=== PATIENT | male | born 1935 | race Caucasian/White ===

== ENCOUNTER 2023-07-26 19:14 | Inpatient (IN) | payer OTHER, SELFPAY ==
[2023-07-26 19:16] VITALS: BP 144/88; PULSE 101; RESP 20; O2SAT 93; BMI 40.6
--- NOTE | 2023-07-26 19:22 | ECG_ITS ---
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 Measurements Intervals [place] Rate: 106 P: -7 AK: 170 QRS: 18 QRSD: 90 T: 47 QT: 343 QTc: 456 Interpretive Statements SINUS TACHYCARDIA MINIMAL ST DEPRESSION [0.025+ mV ST DEPRESSION] ABNORMAL RHYTHM ECG No previous ECG available for comparison Electronically Signed On 07-27-2023 18:34:17 RECORDS MANAGEMENT TECHNICIAN by Gianni Hart M.D. [id number]
--- NOTE | 2023-07-26 19:24 | XRR_ITS ---
PROCEDURE INFORMATION: Exam: XR Chest Exam date and time: 07/26/2023 7:34 PM Age: 88 years old Clinical indication: Shortness of breath; Patient HX: SOB; Fall; AMS TECHNIQUE: Imaging protocol: Radiologic exam of the chest. Views: 1 view. COMPARISON: No relevant prior studies available. FINDINGS: Lungs: Lung volumes are somewhat decreased which may be due to body habitus. No infiltrates or overt CHF. Pleural spaces: Unremarkable. No pleural effusion. No pneumothorax. Heart/Mediastinum: Heart appears mildly enlarged, accentuated by decreased lung volumes. Bones/joints: Unremarkable for age. No acute abnormalities. XR/XR chest 1V portable [id number] IMPRESSION: Mild cardiomegaly, decreased lung volumes, otherwise negative chest.
--- NOTE | 2023-07-26 19:24 | CTR_ITS ---
PROCEDURE INFORMATION: Exam: CT Head Without Contrast Exam date and time: 07/26/2023 7:32 PM Age: 88 years old Clinical indication: Stroke-like symptoms; Altered mental status/memory loss; Additional info: Symptoms of acute stroke TECHNIQUE: Imaging protocol: Computed tomography of the head without contrast. Radiation optimization: All CT scans at this facility use at least one of these dose optimization techniques: automated exposure control; mA and/or kV adjustment per patient size (includes targeted exams where dose is matched to clinical indication); or iterative reconstruction. Other technique: STROKE PROTOCOL was implemented. REPORTING DATA: Count of CT and Cardiac NM exams in prior 12 months: This patient has received 0 known CTs and 0 known cardiac nuclear medicine studies in the 12 months prior to the current study. COMPARISON: No relevant prior studies available. RADIATION DOSE METRICS: Total DLP (mGy-cm): 1102.46 FINDINGS: Brain: There is no evidence of intracranial hemorrhage. There are no areas of mass effect, edema or midline shift. There are diffuse indistinct areas of decreased attenuation involving the periventricular white matter likely secondary to chronic white matter microvascular changes. Small hypodensity left basal ganglia likely representing old lacunar infarct. 1 cm rim shaped calcification posterior aspect right temporal lobe adjacent to the petrous portion right temporal bone of uncertain etiology but likely longstanding. There is age-related cerebral volume loss responsible for prominence of the cortical sulci. Cerebral ventricles: There is mild proportionate ventricular dilatation believed secondary to age related cerebral volume loss. Paranasal sinuses: Visualized sinuses are unremarkable. No fluid levels. Mastoid air cells: Visualized mastoid air cells are well aerated. Bones/joints: Unremarkable. No acute fracture. Soft tissues: Unremarkable. CT/CT head thrombolytic [id number] IMPRESSION: No acute intracranial abnormalities. 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 ASSESSMENT: ASPECTS ([place] Stroke Program Early CT Score) is 10.
--- NOTE | 2023-07-26 19:33 | ED_ITS ---
HPI - Neuro Symptoms/Deficit 2 General: Chief Complaint: Neuro Symptoms/Deficit Stated Complaint: fall Time Seen by Provider: 07/26/23 19:24 History of Present Illness: 88-year-old male presents to the emergen cy department via EMS personnel after having a syncopal episode at home. He states that he has been having nausea and vomiting for the previous 3 days. He states that he has been exposed to his entire family who has very similar illnesses. He became very weak this evening falling and losing his balance and hitting his head on the side of the nightstand in his bedroom. His who is accompanying him states he has been increasingly weak over the previous 3 days. Patient states he did have a prostate biopsy yesterday and does have blood around the tip of his penis. He denies neck or back pain. He does appear to be slightly lethargic and weak. He denies shortness of breath or chest pain. He denies numbness or tingling to the extremities. Associated symptoms: Reports malaise, nausea and vomiting Review of Systems 2 General: Reports: 10 or more systems reviewed and unremarkable except in HPI and below Const: Reports: fatigue and malaise GI: Reports: nausea, vomiting and diarrhea Musc: Reports: muscle weakness PFS ED 2 PFSH: Medical History (Updated 08/08/23 @ 00:00 by DELILAH Herrera) HTN (hypertension) Surgical History History of cholecystectomy Social History Smoking and tobacco/nicotine status: never used tobacco/nicotine Alcohol intake: never Substance/Drug Use: never Physical Exam 2 Narrative: EXAM NARRATIVE: Constitutional: the patient appears well nourished and with normal development. Vital signs reviewed as documented. HENMT: Normocephalic, atraumatic. Extermal ears with normal appearance without drainage. Nose without drainage, normal appearance. Mucus membranes moist. Neck is supple, No jugular venous distension, trachea is midline, no appreciable carotid bruits. No lymphadenopathy. No meningeal signs. Flexion, extension and lateral rotation is without pain. Eyes: Pupils are equal, round, reactive to light and accommodation. No scleral icterus. Extra-ocular movement are intact. Thorax is symmetrical and with equal rise and fall with respirations. Resp: Lungs are clear to auscultation. No wheezes, rales, crackles or ronchi at present. Cardio: Regular rate and rhythm. Positive S1, S2. No appreciable murmurs, rubs or gallops. GI: Abdominal exam reveals normal bowel sounds to all quadrants. No organomegaly. No obvious palpable masses noted. No hepatomegally appreciated. Soft, nontender to palpation. Extremity: Extremities are non-edematous and both femoral and pedal pulses are 2+ and equal bilaterally. Moves all extremities well, sensation in all extremities. Neuro: Alert and oriented x4, person, place, time and situation. Cranial nerves II through XII are grossly intact, there is no focal neurological deficits that I can appreciate at present. Motor strength in the upper and lower extremities are equal and bilateral 5/5. Psych: Cooperative, calm, normal thought process, appropriate judgment. Skin: No lesions, rashes. No gross abnormalities noted. Back: Symmetrical, no obvious deformity, No CVA tenderness Course 2 Vital Signs: Vital signs: Vital Signs Temperature 98.0 F 08/07/23 15:02 Pulse Rate 74 08/07/23 15:02 Respiratory Rate 19 H 08/07/23 15:02 Blood Pressure 147/62 08/07/23 15:02 Pulse Oximetry 97 08/07/23 08:10 Oxygen Delivery Me thod Room Air 08/07/23 08:10 MDM - Neuro Symptoms/Deficit Medical Decision Making Physical exam completed and documented, I will obtain a CT scan of his head and given his change in mental status we have called a stroke alert for evaluation. Will obtain a CBC, CMP, cardiac enzymes twelve-lead EKG blood cultures, chest x- ray urinalysis and a neurology consult. I will provide him IV fluid rehydration for his acute renal insufficiency. Medical Records I reviewed the patient's medical records. Lab Data I reviewed the patient's lab results. 08/07/23 04:10 08/07/23 04:10 Radiology Impressions Chest X-Ray 07/26/23 19:24 IMPRESSION: Mild cardiomegaly, decreased lung volumes, otherwise negative chest. Chest/Abdomen/Pelvis CT 07/27/23 00:47 IMPRESSION: IMPRESSION: Antoine catheter within decompressed urinary bladder. There is mild surrounding inflammatory change. Cystitis not excluded Femur CT 08/04/23 10:13 IMPRESSION: Edematous changes of medial muscle group and generalized fat planes of the left thigh most consistent with cellulitis in absence of traumatic history. No discrete fluid collection or mass. Clinical correlation recommended. Abdomen/Pelvis CT 08/04/23 10:46 IMPRESSION: 1. No acute abdominopelvic pathology. Interval resolution of mild perivesical fat infiltration seen on prior CT. Antoine catheter remains in place . 2. Stable basilar pulmonary nodules and right lower lung zone perifissural abnormality compared with recent chest CT. Given the largest lesion measuring up to 1.6 cm, three-month follow-up recommended according to Fleischner criteria. 3. Minor findings described above. COMMENTS: Consistent with the [place] [employer]'s Incidental Findings Committee white paper (J Am Hector Radiol 2018): Any incidental renal lesion less than 1 cm or classified as too small to characterize, or any incidental cystic renal lesion characterized as simple-appearing, is likely benign. No follow-up imaging is recommended for these lesions per consensus recommendations based on imaging criteria. Head CT 08/04/23 14:40 IMPRESSION: No acute pathology or significant interval change. Venous Duplex 08/05/23 15:20 IMPRESSION: 1. No evidence for deep venous thrombosis in the right or left lower extremities. 2. Mild subcutaneous edema in the right and left calves. Laboratory Results WBC 8.38 10^3/uL (3.29-11.43) 07/26/23 20:42 RBC 5.24 10^6/uL (3.85-5.65) 07/26/23 20:42 Hgb 15.70 g/dL (11.27-16.99) 07/26/23 20:42 Hct 47.2 % (37-53) 07/26/23 20:42 MCV 90.1 fl (82-101) 07/26/23 20:42 MCH 30.0 pg (27-33) 07/26/23 20:42 MCHC 33.3 g/dL (30-55) 07/26/23 20:42 RDW 13.3 % (12.1-15.1) 07/26/23 20:42 Plt Count 178 10^3/cmm (157-399) 07/26/23 20:42 MPV 9.6 fL (7.4-10.4) 07/26/23 20:42 Neut % (Auto) 93.0 % 07/26/23 20:42 Lymph % (Auto) 3.9 % 07/26/23 20:42 [place] % (Auto) 0.8 % 07/26/23 20:42 Eos % (Auto) 0.1 % 07/26/23 20:42 Baso % (Auto) 0.2 % 07/26/23 20:42 Neut # (Auto) 7.78 10^3/uL (1.8-7.7) H 07/26/23 20:42 Lymph # (Auto) 0.3 10^3/uL (0.8-4.8) L 07/26/23 20:42 [place] # (Auto) 0.1 10^3/uL (0.2-0.9) L 07/26/23 20:42 Eos # (Auto) 0.0 10^3/uL (0.0-0.8) 07/26/23 20:42 Baso # (Auto) 0.0 10^3/uL (0.0-0.1) 07/26/23 20:42 Nucleated RBC % (auto) 0 % 07/26/23 20:42 Nucleated RBCs # 0.0 /100WBC 07/26/23 20:42 PT 15.30 SECONDS (12.1-14.9) H 07/26/23 20:42 INR 1.17 (0.8-1.2) 07/26/23 20:42 APTT 25.2 SECONDS (23.9-36.7) 07/26/23 20:42 D-Dimer 18.51 ug/mLFEU (0-0.59) H 07/27/23 00:00 Sodium 136 mmol/L (136-145) 07/26/23 20:42 Potassium 3.7 mmol/L (3.5-5.1) 07/26/23 20:42 Chloride 100 mmol/L (98-107) 07/26/23 20:42 Carbon Dioxide 22 mmol/L (22-29) 07/26/23 20:42 Anion Gap 17.7 (5-19) 07/26/23 20:42 BUN 29 mg/dL (8-23) H 07/26/23 20:42 Creatinine 1.6 mg/dL (0.7-1.2) H 07/26/23 20:42 GFR Calculation Not Reportable 07/26/23 20:42 Glucose 233 mg/dL (65-115) H 07/26/23 20:42 Calculated Osmolality 295 mOsm/kg (285-295) 07/26/23 20:42 Lactic Acid 3.5 mmol/L (0.5-2.2) H 07/27/23 00:00 Calcium 9.2 mg/dL (8.5-10.5) 07/26/23 20:42 Total Bilirubin 1.1 mg/dL (0.15-1.2) 07/26/23 20:42 AST 33 U/L (0-40) 07/26/23 20:42 ALT 23 U/L (0-41) 07/26/23 20:42 Alkaline Phosphatase 122 U/L (40-130) 07/26/23 20:42 Total Protein 6.6 g/dL (6.6-8.7) 07/26/23 20:42 Albumin 3.7 g/dL (3.5-5.2) 07/26/23 20:42 Globulin 2.9 g/dL (1.3-4.6) 07/26/23 20:42 Procalcitonin 66.13 ng/mL (0-0.5) H 07/27/23 00:00 All radiology interpretation(s) finalized by discharge EKG Data EKG 1: Interpretation: Twelve-lead EKG obtained at 1922 and reviewed at 1923 demonstrates sinus tachycardia with a ventricular rate of 106 bpm, IN interval of 170 QRS duration 90 QT 343 and a QTc of [address] elevation or depression to demonstrate acute ischemia or infarction at present. Discharge Plan Discharge Patient Disposition: Placed in Observation Admit Provider: Maria L Lowry Clinical Impression: Acute kidney insufficiency, Viral illness, Syncope and collapse, Dehydration Discharge Diet: Advance as tolerated and Cardiac Discharge Activity: Resume usual activity Coding Level of Care Code ED [employer] Sales Specialist for Chg Steven
[2023-07-26 21:00] LABS: Basophils % 0.2 %; Eosinophils % 0.1 %; Hematocrit 47.2 % (37-53); Lymphocytes # 0.3 10^3/uL (0.8-4.8); Lymphocytes % 3.9 %; Mean Corpuscular HGB Conc 33.3 g/dL (30-55); Mean Corpuscular Volume 90.1 fl (82-101); Mean Platelet Volume 9.6 fL (7.4-10.4); Monocytes # 0.1 10^3/uL (0.2-0.9); Monocytes % 0.8 %; Neutrophils # 7.78 10^3/uL (1.8-7.7); Nucleated Red Blood Cells % 0 %; Platelet Count 178 10^3/cmm (157-399); Red Blood Count 5.24 10^6/uL (3.85-5.65); Red Cell Distribution Width 13.3 % (12.1-15.1); White Blood Count 8.38 10^3/uL (3.29-11.43)
[2023-07-26 21:02] LABS: INR 1.17 (0.8-1.2)
[2023-07-26 21:03] LABS: Partial Thromboplastin Time 25.2 SECONDS (23.9-36.7)
[2023-07-26 21:07] LABS: Alanine Aminotransferase 23 U/L (0-41); Albumin Level 3.7 g/dL (3.5-5.2); Alkaline Phosphatase 122 U/L (40-130); Anion Gap 17.7 (5-19); Aspartate Amino Transferase 33 U/L (0-40); Blood Urea Nitrogen 29 mg/dL (8-23); Calcium 9.2 mg/dL (8.5-10.5); Carbon Dioxide 22 mmol/L (22-29); Chloride 100 mmol/L (98-107); Globulin 2.9 g/dL (1.3-4.6); Glucose 233 mg/dL (65-115); Osmolality Calculated 295 mOsm/kg (285-295); Potassium 3.7 mmol/L (3.5-5.1); Sodium 136 mmol/L (136-145); Total Bilirubin 1.1 mg/dL (0.15-1.2); Total Protein 6.6 g/dL (6.6-8.7)
[2023-07-26] MEDS: sodium chloride 0.9% 1,000 ML 999 ML IV ×2 (21:24→22:24)
[2023-07-26 21:53] VITALS: BP 117/65; PULSE 100; RESP 16; TEMP 38.1; O2SAT 90
[2023-07-26] MEDS: ondansetron 2 mg/ML SDV 2 mL 4 MG IVP (23:07)
--- NOTE | 2023-07-26 23:56 | P.HP_ITS ---
Providers/Chief Complaint 2 Primary Care Provider: Any Hill MD Chief Complaint: fall History of Present Illness Home Sweeney is a 88 year old male with history of BPH, PSA was on 9, had prostate biopsy done 07/25 at [facility], presented today after syncopal event. As per the patient started experiencing loose stools after 5 PM yesterday, it made him very lethargic and dizzy, patient fell in his room and hit his head on the nightstand. He was very fatigued and lethargic. He did not complain of any shortness of breath or chest pain. He was given Reglan and Zofran in the ER, workup is showing creatinine 1.6, ER physician plan to discharge him home but family refused On my evaluation patient is fatigued and lethargic complaining of nausea vomiting I gave him Reglan, Requested D-dimer which came back extremely high at 18.5 He does have lower extremity edema As per the family patient is physically very active and sharp no history of dementia, suffered from COVID-19 earlier this year Takes lisinopril and amlodipine was recently discontinued No significant past medical history No previous history of coronary disease or CHF Review of Systems 2 General: Reports: ROS unobtainable due to medical condition Medications/Allergies Home Medications Medication Instructions Recorded Confirmed Last Taken Type budesonide-formoterol HFA 160 2 puff inhalation BID 12/02/19 12/02/19 Unknown History mcg-4.5 mcg/actuation aerosol inhaler (Symbicort) cephalexin 500 mg capsule 500 mg PO TID 7 days #21 caps 12/02/19 12/02/19 Unknown Rx ondansetron HCl 4 mg tablet 4 mg PO Q12H 5 days #10 tabs 07/26/23 Unknown Rx Allergies Allergy/AdvReac Type Severity Reaction Status Date / Time ciprofloxacin [From Cipro] Allergy RASH Verified 12/02/19 13:32 PFSH Acute 2 PFSH: Medical History HTN (hypertension) Surgical History History of cholecystectomy Social History Smoking and tobacco/nicotine status: never used tobacco/nicotine Alcohol intake: never Substance/Drug Use: never Vitals/I&O/Wt Last Vital Signs Temp 100.6 F H 07/26/23 21:53 Pulse 100 07/26/23 21:53 Resp 16 07/26/23 21:53 BP 117/65 07/26/23 21:53 Pulse Ox 90 07/26/23 21:53 07/26/23 07/26/23 07/27/23 14:59 22:59 06:59 Intake Total 1000 / 1000 Balance 1000 / 1000 Weight last 48 hrs Weight 136.078 kg Physical Exam 2 Narrative: Patient is very lethargic Sitting in a chair Hard of hearing Nonfocal neuroexam lower extremity swelling 1+ S1, S2, hemodynamic stable Low-grade fever Abdomen distended nontender Family at the bedside S1, S2 Patient is currently on room air Data 07/26/23 20:42 07/26/23 20:42 A&P Assessment and plan (1) Acute kidney insufficiency: (2) Dehydration: (3) Viral illness: (4) Syncope and collapse: (5) D-dimer, elevated: Plan Syncope and collapse Will request echo VQ scan in the morning Will request venous Doppler I will cannot do CTA chest to rule out PE because of kidney function creatinine 1.6 Monitor on telemetry Recurrent nausea vomiting Will request CT abdomen pelvis without contrast Patient started having diarrhea around 5 PM yesterday He has low-grade fever Monitor for any signs of sepsis There is no leukocytosis I will request lactic acid Patient received 2 L of fluids in the ER Recent prostate biopsy, my concern is related to UTI will request UA Antoine catheter will be placed, as per the family they were some blood clots noted as well Patient has PSA level 9 urologist at [facility] Lower extremity swelling Rule out CHF Will request echo Maintenance fluid overnight Abnormal D-dimer Not sure if this is due to underlying malignancy related to prostate versus thromboembolic phenomenon MARY CARMEN, do not have previous labs to compare his kidney function This could be related to recent episodes of diarrhea and vomiting However clinically patient has lower extremity swelling Full code [place] diet DVT prophylaxis added Attestations 2 Medical Necessity Statement*: Anticipating more than 2 midnights Diagnoses Acute kidney insufficiency N28.9 Dehydration E86.0 Viral illness B34.9 Syncope and collapse R55 D-dimer, elevated R79.89
[2023-07-27] VITALS (14 sets, daily range): BP systolic 92–123; BP diastolic 54–72; PULSE 75–95; RESP 16–26; TEMP 36.6–38.1; O2SAT 92–96
[2023-07-27 00:29] LABS: D Dimer 18.51 ug/mLFEU (0-0.59)
--- NOTE | 2023-07-27 00:47 | USCV_ITS ---
Home Sweeney Age: 88 Gender: M : 1935 Exam Date: 07/27/2023 10:41 Ordering Phys: Maria L Lowry MD Technologist: Rodger Mcpherson [place] [facility] [place]: syncope BP: 108 / 66 HR: 79 Rhythm: Sinus Technical Quality: Adequate MEASUREMENTS (Male / Female) Normal Values 2D ECHO LVOT Diameter 2.0 cm LV Ejection Fraction MOD 2C 72.5 % LV Ejection Fraction 2C AL 73.3 % LA Diameter 3.5 cm LA Width 3.2 cm LA Height 3.6 cm RA Width 3.0 cm RA Height 3.5 cm Aorta at Sinotubular Diameter 2.7 cm IVC Diameter 1.9 cm M-MODE Aortic Annulus Diameter 2.7 cm LA Ao Ratio MM 1.4 MV E Point Septal Separation 0.5 cm DOPPLER AV Peak Velocity 129.7 cm/s LVOT Peak Velocity 105.0 cm/s AV Area Cont Eq vti 3.1 cm squared AV Area Cont Eq pk 2.7 cm squared MV Peak Velocity 120.0 cm/s MV Area PHT 3.6 cm squared Mitral E to A Ratio 0.8 MV E' Velocity 44.0 cm/s Mitral E to MV E' Ratio 11.5 Mitral E to LV E' Lateral Ratio 11.7 Mitral E to LV E' Septal Ratio 11.4 TR Peak Velocity 198.6 cm/s TR Peak Gradient 15.8 mmHg TR Mean Velocity 159.8 cm/s TR Mean Gradient 11.7 mmHg TR Velocity Time Integral 39.0 cm Right Atrial Pressure 3.0 mmHg Pulmonary Artery Systolic Pressu 18.8 mmHg PV Peak Velocity 70.3 cm/s RV Acceleration Time 0.1 s RV Ejection Time 0.3 s RV AcT/ET 0.5 FINDINGS Left Ventricle Normal left ventricular size and systolic function, EF 64 %. No regional wall motion abnormalities. Mild left ventricular hypertrophy. Grade I/IV diastolic dysfunction (abnormal relaxation filling pattern), normal to mildly elevated filling pressures. Right Ventricle The right ventricle is normal in size and function. Right Atrium The right atrium is normal in size. Left Atrium The left atrium is normal in size. Mitral Valve No gross abnormalities noted Aortic Valve Thickened aortic valve Tricuspid Valve No gross abnormalities noted Pulmonic Valve Pulmonic valve not well visualized. Pericardium Normal pericardium without effusion. Aorta Normal ascending aorta dimension. IVC Normal inferior vena cava. CONCLUSIONS Normal left ventricular size and systolic function, EF 64 %. No regional wall motion abnormalities. Mild left ventricular hypertrophy. Grade I/IV diastolic dysfunction (abnormal relaxation filling pattern), normal to mildly elevated filling pressures. Thickened aortic valve Normal cardiac chamber sizes There is no pericardial effusion. No similar previous studies are available for comparison Dr Gianni Hart MD FACC (Electronically Signed) Final Date: 27 July 2023 15:34 S
--- NOTE | 2023-07-27 00:47 | USR_ITS ---
PROCEDURE INFORMATION: Exam: US Duplex Lower Extremity Veins, Bilateral Exam date and time: 07/27/2023 10:23 AM Age: 88 years old Clinical indication: Screening exam; Additional info: Swelling TECHNIQUE: Imaging protocol: Real-time duplex ultrasound of the bilateral extremities with 2-D ruth scale, color Doppler flow and spectral waveform analysis including responses to compression and other maneuvers (when performed) with image documentation. Complete exam focused on the lower extremity veins. COMPARISON: [place] [id number] 07/27/2023 1:40 AM FINDINGS: Right deep veins: Unremarkable. The common femoral, femoral, proximal profunda femoral and popliteal veins are patent without thrombus. Normal Doppler waveforms. Normal compressibility and/or augmentation response. Left deep veins: Unremarkable. The common femoral, femoral, proximal profunda femoral and popliteal veins are patent without thrombus. Normal Doppler waveforms. Normal compressibility and/or augmentation response. Superficial veins: Bilateral saphenofemoral junctions are patent without thrombus. Soft tissues: Unremarkable. US/CV venous duplex [facility] [id number] IMPRESSION: No evidence of deep vein thrombosis.
--- NOTE | 2023-07-27 00:47 | CTR_ITS ---
PROCEDURE INFORMATION: Exam: CT Chest Without Contrast; Diagnostic Exam date and time: 07/27/2023 1:40 AM Age: 88 years old Clinical indication: Prior surgery; Surgery date: 6+ months; Surgery type: Gb; Patient HX: Fever with nausea and diarrhea. Abd distention. Wil. Prostate biopsy performed two days ago. Patient very lethargic. ; Additional info: N/v TECHNIQUE: Imaging protocol: Diagnostic computed tomography of the chest without contrast. Radiation optimization: All CT scans at this facility use at least one of these dose optimization techniques: automated exposure control; mA and/or kV adjustment per patient size (includes targeted exams where dose is matched to clinical indication); or iterative reconstruction. REPORTING DATA: Count of CT and Cardiac NM exams in prior 12 months: This patient has received [address] and 0 known cardiac nuclear medicine studies in the 12 months prior to the current study. COMPARISON: CR (CHEST, ) 07/26/2023 7:34 PM RADIATION DOSE METRICS: Total DLP (mGy-cm): 1264.43 FINDINGS: Lungs: Calcified granuloma left upper lobe. 5 mm ground-glass nodule in the right upper lobe. Pleural spaces: Unremarkable. No pneumothorax. No pleural effusion. Heart: Cardiomegaly. Coronary artery calcification. Lymph nodes: Unremarkable. No enlarged lymph nodes. Vasculature: Unremarkable. No aortic aneurysm. Bones/joints: Unremarkable. No acute fracture. Soft tissues: Unremarkable. PROCEDURE INFORMATION: Exam: CT Abdomen And Pelvis Without Contrast Exam date and time: 07/27/2023 1:40 AM Age: 88 years old Clinical indication: Prior surgery; Surgery date: 6+ months; Surgery type: Gb; Patient HX: Fever with nausea and diarrhea. Abd distention. Wil. Prostate biopsy performed two days ago. Patient very lethargic. ; Additional info: N/v TECHNIQUE: Imaging protocol: Computed tomography of the abdomen and pelvis without contrast. Radiation optimization: All CT scans at this facility use at least one of these dose optimization techniques: automated exposure control; mA and/or kV adjustment per patient size (includes targeted exams where dose is matched to clinical indication); or iterative reconstruction. REPORTING DATA: Count of CT and Cardiac NM exams in prior 12 months: This patient has received [address] and 0 known cardiac nuclear medicine studies in the 12 months prior to the current study. COMPARISON: CR (CHEST, ) 07/26/2023 7:34 PM RADIATION DOSE METRICS: Total DLP (mGy-cm): 1264.43 FINDINGS: Liver: Normal. No mass. Gallbladder and bile ducts: The gallbladder is surgically removed Pancreas: Normal. No ductal dilation. Spleen: Normal. No splenomegaly. Adrenal glands: Normal. No mass. Kidneys and ureters: Normal. No hydronephrosis. Stomach and bowel: Unremarkable. No obstruction. No mucosal thickening. Appendix: No evidence of appendicitis. Intraperitoneal space: Unremarkable. No free air. No significant fluid collection. Vasculature: Unremarkable. No abdominal aortic aneurysm. Lymph nodes: Unremarkable. No enlarged lymph nodes. Reproductive: Prostate gland hyperplasia Urinary bladder: Antoine catheter within decompressed urinary bladder. There is mild surrounding inflammation. Cystitis not excluded. Bones/joints: Multilevel degenerative change of the lumbar spine with mild scoliosis. Soft tissues: Unremarkable. CT/CT chest [place]dpel [id number] IMPRESSION: IMPRESSION: Antoine catheter within decompressed urinary bladder. There is mild surrounding inflammatory change. Cystitis not excluded
[2023-07-27 01:01] LABS: Procalcitonin 66.13 ng/mL (0-0.5)
[2023-07-27 01:53] LABS: Lactic Sepsis W/Reflex 3.5 mmol/L (0.5-2.2)
[2023-07-27 02:56] LABS: Reflex Lactate Order REFLEX LACTIC ORDERD
[2023-07-27 03:01] LABS: ABG PCO2 33.2 mmHg (35-45); ABG PH Result 7.43 (7.35-7.45); Arterial Blood Gas Hematocrit 44.4 % (42-52); Base Excess ABG -1.5 mmol/L (-2.0-2.0); Blood Gas Allen Test Pos; Blood Gas Operator Identificat JB; Blood Gas Sample Site Radial, left; Blood Gas Sample Type Arterial; HCO3 ABG 22.1 mmol/L (22-26); Oxygen Device NC; PO2 ABG 64.1 mmHg (80.0-100.0); PO2 FiO2 Ratio Arterial Blood 0
--- NOTE | 2023-07-27 03:18 | ECG_ITS ---
[facility] Test Date: 2023-07-27 Pat Name: Home Sweeney Department: Room: 255 Gender: Male Business Records Manager: : 1935 Requested By: Maria L Lowry Order Number: [id number] Reading MD: Gianni Hart M.D. Measurements Intervals [place] Rate: 88 P: 44 TX: 187 QRS: 21 QRSD: 92 T: 25 QT: 364 QTc: 442 Interpretive Statements SINUS RHYTHM Compared to ECG 07/26/2023 19:22:31 Sinus tachycardia no longer present ST (T wave) deviation no longer present Electronically Signed On 07-27-2023 18:48:49 HIGH SCHOOL HVAC R INSTRUCTOR by Gianni Hart M.D. [id number]
[2023-07-27] MEDS: sodium chloride 0.9% 1,000 ML 50 ML IV (03:31)
[2023-07-27] MEDS: acetaminophen 500 mg Tablet PO (03:37)
[2023-07-27 03:51] LABS: Adenovirus Not Detected (NOT DETECT); Chlamydia Pneumoniae Not Detected (NOT DETECT); Coronavirus 229E,HKU1,NL63,OC4 Not Detected (NOT DETECT); Human Metapneumovirus Not Detected (NOT DETECT); Human Rhinovirus/Enterovirus Not Detected (NOT DETECT); Influenza A Not Detected (NOT DETECT); Influenza A H1 Not Detected (NOT DETECT); Influenza A H1-2009 Not Detected (NOT DETECT); Influenza A H3 Not Detected (NOT DETECT); Influenza B Not Detected (NOT DETECT); Mycoplasma Pneumoniae Not Detected (NOT DETECT); Parainfluenza Virus Type 1 Not Detected (NOT DETECT); Parainfluenza Virus Type 2 Not Detected (NOT DETECT); Parainfluenza Virus Type 3 Not Detected (NOT DETECT); Parainfluenza Virus Type 4 Not Detected (NOT DETECT); Respiratory Syncytial Virus A Not Detected (NOT DETECT); Respiratory Syncytial Virus B Not Detected (NOT DETECT); SARS-COV-2 Not Detected (NOT DETECT)
[2023-07-27 05:15] LABS: Basophils % 0.2 %; Eosinophils # 0.5 10^3/uL (0.0-0.8); Eosinophils % 2.1 %; Lymphocytes # 0.6 10^3/uL (0.8-4.8); Lymphocytes % 2.6 %; Mean Corpuscular HGB Conc 32.7 g/dL (30-55); Mean Corpuscular Hemoglobin 29.8 pg (27-33); Mean Corpuscular Volume 90.9 fl (82-101); Mean Platelet Volume 10.4 fL (7.4-10.4); Monocytes # 1.8 10^3/uL (0.2-0.9); Monocytes % 7.9 %; Neutrophils # 18.78 10^3/uL (1.8-7.7); Neutrophils % 83.4 %; Nucleated Red Blood Cells % 0 %; Platelet Count 168 10^3/cmm (157-399); Red Blood Count 4.84 10^6/uL (3.85-5.65); Red Cell Distribution Width 13.8 % (12.1-15.1)
[2023-07-27 05:22] LABS: Slide Review Slide Review Perform
[2023-07-27 05:36] LABS: Anion Gap 17.8 (5-19); Blood Urea Nitrogen 33 mg/dL (8-23); C Reactive Protein 103.4 mg/L (0.0-4.9); Calcium 8.8 mg/dL (8.5-10.5); Carbon Dioxide 22 mmol/L (22-29); Chloride 102 mmol/L (98-107); Glucose 135 mg/dL (65-115); Magnesium 1.6 mg/dL (1.7-2.3); Osmolality Calculated 295 mOsm/kg (285-295); Phosphorus 1.8 mg/dL (2.5-4.5); Potassium 3.8 mmol/L (3.5-5.1); Sodium 138 mmol/L (136-145)
[2023-07-27 05:37] LABS: Lactic Acid level (Lactate) 3.8 mmol/L (0.5-2.2)
[2023-07-27 05:41] LABS: Troponin(5th) Baseline 236 ng/L (0-15)
[2023-07-27 06:31] LABS: NT Pro B Type Natriuretic Pept 5638 pg/mL (0-450); Thyroid Stimulating Hormone 0.88 uIU/mL (0.27-4.20); Vitamin B12 287 pg/mL (232-1245)
[2023-07-27 06:32] LABS: Estmated Average Glucose 134; Hemoglobin A1C 6.3 % (4.0-6.0)
[2023-07-27] MEDS: clopidogrel 300 mg Tablet PO (06:38)
[2023-07-27] MEDS: aspirin 325 mg EC Tablet PO (06:38)
[2023-07-27] MEDS: heparin drip 25,000 UNIT/500 ML PREMIX 30.99 UNIT IV (07:14)
[2023-07-27] MEDS: heparin 5,000 unit/mL INJ 1 mL IV (07:15)
[2023-07-27] MEDS: lactated ringers 1,000 ML 999 ML IV (07:17)
--- NOTE | 2023-07-27 07:18 | ECG_ITS ---
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 Measurements Intervals [place] Rate: 71 P: 16 [place]: 185 QRS: 17 QRSD: 89 T: 53 QT: 396 QTc: 433 Interpretive Statements SINUS RHYTHM Poor R wave progression Compared to ECG 07/27/2023 02:39:33 No significant changes Electronically Signed On 07-27-2023 19:00:25 LEVEL VIAL INSPECTOR by Gianni Hart M.D. [id number]
[2023-07-27 07:43] LABS: Lactate (Lactic Acid level) 3.8 mmol/L (0.5-2.2)
[2023-07-27 08:09] LABS: Troponin 5 2HR Delta -16.2 ABS# (0-10)
[2023-07-27 08:10] LABS: Troponin 5 2HR 219.8 ng/L (0-15)
--- OUTSIDE RECORDS SUMMARY | 2023-07-27 08:27 | XMS_ITS | Continuity of Care Document ---
Author Name Unknown Organization [facility] Address [address] [place] [address]- Care Team Providers Care Adult Protective Caseworker Name Role Phone Acuña REMOTE SENSING SCIENTIST, Aissatou Abdi Primary Care Physician Encounter [employer] Number [id number] Date(s): 03/11/23 - 03/12/23 [facility] [address], [place] [address] Discharge Disposition: .Discharge to Home (Routine) Attending Physician: Ventura Kitchen Allergies, Adverse Reactions, Alerts Substance Reaction Severity Status Cipro Rash Moderate Active Assessment and Plan Future Appointments Appointment Date:06/06/2023 09:45:00 AM Scheduled Provider:Aime Dias MD Location:[facility] Appointment Type:Established Patient Future Scheduled Tests Laboratory* TSH 05/04/22 * Vitamin B12 Assay 05/04/22 * Vitamin D Total 05/04/22 Medications aspirin 81 mg, By mouth, Daily, # 90 tab, Refill(s) 0 Start Date: 11/02/21 Status: Ordered D3 25 mcg (1000 intl units) oral tablet 25 mcg = 1 tab, By mouth, Daily, Refill(s) 0 Start Date: 11/02/21 Status: Ordered Fluticasone Propionate Refill(s) 0 Start Date: 11/02/21 Status: Ordered Lasix 20 mg oral tablet 20 mg = 1 tab, By mouth, Daily, # 30 tab, Refill(s) 0 Start Date: 12/28/22 Status: Ordered losartan 50 mg oral tablet 50 mg = 1 tab, By mouth, Daily, # 30 tab, Refill(s) 0 Start Date: 11/02/21 Status: Ordered metoprolol tartrate 25 mg oral tablet 25 mg = 1 tab, By mouth, BID, hold for SBP less than 110 or pulse less than 50, # 180 tab, Refill(s) 3, Pharmacy: [facility], [id number], STOP PROPANOLOL. hold metoprolol for SBP less than 110 or pulse less th... Start Date: 01/23/23 Status: Ordered Miscellaneous (Medication/DME) See Instructions, Wixela 2 puffs BID, Refills(s) 0, Supply Start Date: 11/02/21 Status: Ordered Vitamin C 250 mg oral tablet 250 mg = 1 tab, By mouth, BID, Refill(s) 0 Start Date: 11/02/21 Status: Ordered zinc (as gluconate) 50 mg oral tablet 50 mg = 1 tab, By mouth, Daily, # 30 tab, Refill(s) 0 Start Date: 11/02/21 Status: Ordered Problem List Condition Confirmation Course Effective Dates Status Health St atus Informant Bilateral carotid artery stenosis Confirmed Active Chest pain of unknown etiology Confirmed Active COPD (chronic obstructive pulmonary disease) Confirmed Active Dizziness Confirmed Active Exertional dyspnea Confirmed Active Edema Confirmed Active Essential hypertension Confirmed Active Fatigue Confirmed Active Social History Social History Type Response Smoking Status Never smoker; Smokel ess tobacco use: Never; Has the patient smoked in the last 365 days, even once? No entered on: 12/28/22 Sex Male Patient Care team information Care Team Personnel Name: Aissatou Acuña NP Position: 2 Restricted Providers Member Role: Primary Care Physician Address: Address: [address] [place] [address] Care Team Related Persons Name: Maria Luisa Sarmiento Name: RUFUS DWYER
--- NOTE | 2023-07-27 08:48 | PC.PHAR ---
family states pt has a current med list other than [facility] list. They are retrieving it from home and will turn in to nursing staff today. 07/27/23
--- NOTE | 2023-07-27 09:06 | PM.CONSULT ---
Providers/Reason For Consult Consulting Physician/Specialty*: KY Hart MD/cardiology Reason for Consult*: Patient with new onset of congestive heart failure/elevated troponin T Requesting Physician: Dr. Lowry/Dr. Bradshaw Attending Physician: Favio Blanchard MD Primary Care Provider: Any Hill MD History of Present Illness History of Present Illness Home Sweeney is a 88 year old male, is admitted to hospital through the emergency room where he presented with an episode of syncope at home. He was found to elevated troponin T. The levels seem to be trending down. Cardiology consult is requested for further cardiac evaluation recommendations. This patient has no significant past medical history for any cardiac illness. For the last 2 to 3 days, he been not feeling well. Based on the records, the whole family was having some type of febrile illness. On , the patient had a prostate biopsy in [facility]. Details are not available. The patient has been having some nausea and vomiting on and Saturday. Last evening, he was having the chills and shaking the whole body. He was sitting at the bedside with the nausea and vomiting. His was around at that time. She brought a smith for him to vomit and was kept at the bedside. Apparently the left the room for a while and as she came back, she found him on the floor. The patient was in the room exactly what happened. He also was found to have had a bowel movement around this time in the bed. He denies any chest pain prior to this event or following this event. No palpitation. He has a moment of dizziness. No other specific complaints. Sometime in the beginning of this year, he was complaining of extreme tiredness/weakness. He had some cardiac workup at the [facility] by Dr. Dias. He had a stress test and? Echocardiogram. Details are not available. Apparently the patient was told that everything is okay. He has a longstanding history of COPD. Remote history of smoking abuse. No significant family history for atherosclerotic heart disease. Medications/Allergies Home Medications Medication Instructions Recorded Confirmed Last Taken Type budesonide-formoterol HFA 160 2 puff inhalation BID 12/02/19 07/27/23 Unknown History mcg-4.5 mcg/actuation aerosol inhaler (Symbicort) ondansetron HCl 4 mg tablet 4 mg PO Q12H 5 days #10 tabs 07/26/23 Unknown Rx Allergies Allergy/AdvReac Type Severity Reaction Status Date / Time ciprofloxacin [From Cipro] Allergy RASH Verified 12/02/19 13:32 Current Medications Generic Name Dose Route Start Last Admin Trade Name Freq PRN Reason Stop Dose Admin Acetaminophen 500 mg 07/27/23 01:15 07/27/23 03:37 Acetaminophen 500 Mg Tablet PO 500 mg Q4H PRN Administration fever Heparin Sodium (Porcine) 0 unit 07/27/23 06:14 07/27/23 07:15 Heparin 5,000 Unit/Ml Inj 1 Ml IV 5,500 unit PRN PRN Administration Heparin weight-base protocol Protocol Sodium Chloride 1,000 mls @ 50 mls/hr 07/27/23 01:15 07/27/23 03:31 Sodium Chloride 0.9% IV 50 mls/hr .Q20H SANDEE Administration Heparin Sodium/Sodium Chloride 25,000 unit in 500 mls @ 0 mls/hr 07/27/23 06:15 07/27/23 07:14 Heparin Drip IV 14 unit/kg/hr .Q0M SANDEE 30.99 mls/hr Administration Protocol Per Protocol PFSH Acute PFSH: Medical History HTN (hypertension) Surgical History History of cholecystectomy Social History Smoking and tobacco/nicotine status: never used tobacco/nicotine Alcohol intake: never Substance/Drug Use: never Vitals/I&O/Wt Last Vital Signs Temp 97.8 F 07/27/23 08:31 Pulse 79 07/27/23 08:31 Resp 18 07/27/23 08:31 BP 108/66 07/27/23 08:31 Pulse Ox 92 07/27/23 08:31 O2 Del Method Room Air 07/27/23 02:45 07/26/23 07/27/23 07/27/23 22:59 06:59 14:59 Intake Total 1000 / 1000 Output Total 100 / 100 Balance 1000 / 1000 -100 / 900 Weight last 48 hrs Weight 244 lb 4 oz Weight 244 lb Weight 244 lb 11.2 oz Weight 300 lb Physical Exam Narrative: GENERAL: The patient is alert and oriented times three. Not in any acute distress. HEENT: No significant pallor, icterus or lymphadenopathy.Oral cavity: There are no mucous membrane lesions. NECK: Trachea appears to be central. No masses noted. No JVD or thyromegaly appreciated. RESPIRATORY: Chest is symmetrical. No intercostals muscle retraction or any accessory muscle activation. There is no chest wall tenderness. Breath sounds are heard bilaterally. No rales or rhonchi heard. No evidence of any consolidation. BREASTS: Deferred. HEART: The heart sounds are normal. No S3 or S4. No significant murmurs. No pericardial rub ABDOMEN: No vessel pulsations or distention. No tenderness. No organomegaly appreciated. Bowel sounds are normally heard. : Deferred. RECTAL: Deferred. LYMPHATIC: No lymphadenopathy noted in the neck. EXTREMITIES: No edema or cyanosis. No clubbing. MUSCULOSKELETAL: No acute joint deformities or swelling SKIN: There are no significant rashes or ecchymosis NEUROPSYCHIATRIC: The patient is alert and oriented x3. Appears to be in a good mood. No tremors or rigidity noted. Urinary Catheter Management: Antoine: Cath Placed During This Visit: no Reason for Continuing Indwelling Catheter: Acute Urinary Retention or Obstruction Data 07/27/23 04:21 07/27/23 04:21 Other Labs: Laboratory Last Values WBC 22.50 10^3/uL (3.29-11.43) H 07/27/23 04:21 RBC 4.84 10^6/uL (3.85-5.65) 07/27/23 04:21 Hgb 14.40 g/dL (11.27-16.99) 07/27/23 04:21 Hct 44.0 % (37-53) 07/27/23 04:21 MCV 90.9 fl (82-101) 07/27/23 04:21 MCH 29.8 pg (27-33) 07/27/23 04:21 MCHC 32.7 g/dL (30-55) 07/27/23 04:21 RDW 13.8 % (12.1-15.1) 07/27/23 04:21 Plt Count 168 10^3/cmm (157-399) 07/27/23 04:21 MPV 10.4 fL (7.4-10.4) 07/27/23 04:21 Neut % (Auto) 83.4 % 07/27/23 04:21 Lymph % (Auto) 2.6 % 07/27/23 04:21 Pine % (Auto) 7.9 % 07/27/23 04:21 Eos % (Auto) 2.1 % 07/27/23 04:21 Baso % (Auto) 0.2 % 07/27/23 04:21 Neut # (Auto) 18.78 10^3/uL (1.8-7.7) H 07/27/23 04:21 Lymph # (Auto) 0.6 10^3/uL (0.8-4.8) L 07/27/23 04:21 Pine # (Auto) 1.8 10^3/uL (0.2-0.9) H 07/27/23 04:21 Eos # (Auto) 0.5 10^3/uL (0.0-0.8) 07/27/23 04:21 Baso # (Auto) 0.0 10^3/uL (0.0-0.1) 07/27/23 04:21 Nucleated RBC % (auto) 0 % 07/27/23 04:21 Nucleated RBCs # 0.0 /100WBC 07/27/23 04:21 PT 15.30 SECONDS (12.1-14.9) H 07/26/23 20:42 INR 1.17 (0.8-1.2) 07/26/23 20:42 APTT 25.2 SECONDS (23.9-36.7) 07/26/23 20:42 D-Dimer 18.51 ug/mLFEU (0-0.59) H 07/27/23 00:00 Specimen Type Arterial 07/27/23 02:48 Sample Site Radial, left 07/27/23 02:48 ABG pH 7.43 (7.35-7.45) 07/27/23 02:48 ABG pCO2 33.2 mmHg (35-45) L 07/27/23 02:48 ABG pO2 64.1 mmHg (80.0-100.0) L 07/27/23 02:48 ABG PO2/FiO2 Ratio 0 07/27/23 02:48 ABG HCO3 22.1 mmol/L (22-26) 07/27/23 02:48 ABG Base Excess -1.5 mmol/L (-2.0-2.0) 07/27/23 02:48 Ortiz Test Pos 07/27/23 02:48 Hematocrit 44.4 % (42-52) 07/27/23 02:48 O2 Delivery Device Nc 07/27/23 02:48 FiO2 21.0 % 07/27/23 02:48 Vp Customer Development ID Rodriguez 07/27/23 02:48 Sodium 138 mmol/L (136-145) 07/27/23 04:21 Potassium 3.8 mmol/L (3.5-5.1) 07/27/23 04:21 Chloride 102 mmol/L (98-107) 07/27/23 04:21 Carbon Dioxide 22 mmol/L (22-29) 07/27/23 04:21 Anion Gap 17.8 (5-19) 07/27/23 04:21 BUN 33 mg/dL (8-23) H 07/27/23 04:21 Creatinine 2.2 mg/dL (0.7-1.2) H 07/27/23 04:21 GFR Calculation Not Reportable 07/27/23 04:21 Glucose 135 mg/dL (65-115) H 07/27/23 04:21 Estimat Average Glucose 134 07/27/23 04:21 Hemoglobin A1c 6.3 % (4.0-6.0) H 07/27/23 04:21 Calculated Osmolality 295 mOsm/kg (285-295) 07/27/23 04:21 Lactic Acid 3.5 mmol/L (0.5-2.2) H 07/27/23 00:00 Lactic Acid (Sepsis) 3.8 mmol/L (0.5-2.2) H 07/27/23 04:21 Lactate 3.8 mmol/L (0.5-2.2) H 07/27/23 07:15 Calcium 8.8 mg/dL (8.5-10.5) 07/27/23 04:21 Phosphorus 1.8 mg/dL (2.5-4.5) L 07/27/23 04:21 Magnesium 1.6 mg/dL (1.7-2.3) L 07/27/23 04:21 Total Bilirubin 1.1 mg/dL (0.15-1.2) 07/26/23 20:42 AST 33 U/L (0-40) 07/26/23 20:42 ALT 23 U/L (0-41) 07/26/23 20:42 Alkaline Phosphatase 122 U/L (40-130) 07/26/23 20:42 Troponin T Baseline 236 ng/L (0-15) H* 07/27/23 04:21 Troponin T 120 Minute 219.8 ng/L (0-15) H 07/27/23 07:15 Delta Troponin T -16.2 ABS# (0-10) L 07/27/23 07:15 C-Reactive Protein 103.4 mg/L (0.0-4.9) H 07/27/23 04:21 NT-Pro-B Natriuret Pep 5638 pg/mL (0-450) H 07/27/23 04:21 Total Protein 6.6 g/dL (6.6-8.7) 07/26/23 20:42 Albumin 3.7 g/dL (3.5-5.2) 07/26/23 20:42 Globulin 2.9 g/dL (1.3-4.6) 07/26/23 20:42 Vitamin B12 287 pg/mL (232-1245) 07/27/23 04:21 Procalcitonin 66.13 ng/mL (0-0.5) H 07/27/23 00:00 TSH 0.88 uIU/mL (0.27-4.20) 07/27/23 04:21 Nasal Influ A H1 2008 PCR Not detected (NOT DETECT) 07/27/23 01:20 Adenovirus (PCR) Not detected (NOT DETECT) 07/27/23 01:20 C. pneumoniae DNA (PCR) Not detected (NOT DETECT) 07/27/23 01:20 Coronavirus 229E (PCR) Not detected (NOT DETECT) 07/27/23 01:20 Human Metapneumovir PCR Not detected (NOT DETECT) 07/27/23 01:20 Influenza A (H1) PCR Not detected (NOT DETECT) 07/27/23 01:20 Influenza A (H3) PCR Not detected (NOT DETECT) 07/27/23 01:20 Influenza Type A (PCR) Not detected (NOT DETECT) 07/27/23 01:20 Influenza Type B (PCR) Not detected (NOT DETECT) 07/27/23 01:20 M. pneumoniae (PCR) Not detected (NOT DETECT) 07/27/23 01:20 Parainfluenza 1 (PCR) Not detected (NOT DETECT) 07/27/23 01:20 Parainfluenza 2 (PCR) Not detected (NOT DETECT) 07/27/23 01:20 Parainfluenza 3 (PCR) Not detected (NOT DETECT) 07/27/23 01:20 Parainfluenza 4 (PCR) Not detected (NOT DETECT) 07/27/23 01:20 RSV Type A (PCR) Not detected (NOT DETECT) 07/27/23 01:20 RSV Type B (PCR) Not detected (NOT DETECT) 07/27/23 01:20 Entero/Rhino (PCR) Not detected (NOT DETECT) 07/27/23 01:20 SARS-CoV-2 (PCR) Not detected (NOT DETECT) 07/27/23 01:20 Micro: Microbiology 07/27/23 07:15 Blood Culture - Preliminary Blood SPECIMEN COLLECTED 07/27/23 04:21 Blood Culture - Preliminary Blood SPECIMEN COLLECTED Other data: The EKG showed a normal sinus rhythm with some nonspecific ST changes in the inferior leads. A&P Assessment and plan (1) Elevated troponin: Possibility of a non-ST elevation myocardial infarction is a consideration. Hemodynamically the patient is stable. Echocardiogram would be helpful to evaluate LV function and rule out any other pathology. Patient may be treated with IV heparin, beta-ethan, aspirin, statin and other symptomatic measures. Troponin T is trending down. (2) Acute kidney insufficiency: Could be from the nausea and vomiting. This needs to be closely monitored. (3) Syncope and collapse: This could be multifactorial. Vasovagal reaction, hypotension, cardiac arrhythmia, etc. are considerations. Patient needs to be closely monitored on telemetry. Adequate hydration would be appropriate. Coronary ischemia causing this also is a consideration. (4) Viral illness: Patient is on empiric antibiotics. (5) D-dimer, elevated: The venous Doppler examination was unremarkable. CT of the chest did not reveal any PE. May not require any further investigation at this point (6) Elevated brain natriuretic peptide (BNP) level: Acute diastolic heart failure is a consideration. Currently the patient is compensated. Most likely the ischemia might be the contributing factor Plan Other problems are COPD Status post prostate biopsy I will be reviewing the echocardiogram. Based on the clinical progress and the results of the above, further recommendations will be made. Thank you for the opportunity to eval this patient and make this recommendation Consult Attestations Medical Necessity Statement: Patient requires continued hospital stay for close monitoring and further management Coding Level of Care Code 78876 Diagnoses Elevated troponin R79.89 Acute kidney insufficiency N28.9 Syncope and collapse R55 Viral illness B34.9 D-dimer, elevated R79.89 Elevated brain natriuretic peptide (BNP) level R79.89
[2023-07-27] MEDS: aspirin 81 mg EC Tablet PO (11:11)
[2023-07-27] MEDS: clopidogrel 75 mg Tablet PO (11:11)
[2023-07-27] MEDS: magnesium sulfate premix 1 GM/100 ML PIGGYBACK IV (11:42)
[2023-07-27 11:55] LABS: Troponin 5 6HR 170.1 ng/L (0-15)
[2023-07-27] MEDS: ipratropium-albuterol 3 mL Neb INHALATION ×2 (11:55→20:20)
[2023-07-27] MEDS: vancomycin 1,000 MG in sodium chloride 0.9% 250 ML 250 MG IV (12:20)
[2023-07-27 12:23] LABS: Iron 9 ug/dL (59-158); Percent Saturation 4.1 % (20-50); Total Iron Binding Capacity 217 mcg/dl; Unsaturated Iron Binding 208 ug/dL (112-347)
[2023-07-27 12:40] LABS: Amphetamines Screen Urine Negative (Negative); Barbiturates Screen Urine Negative (Negative); Benzodiazepines Screen Urine Negative (Negative); Cocaine Screen Urine Negative (Negative); Opiate Screen Urine Negative (Negative); PCP Screen Urine Negative (Negative); THC Screen Urine Negative (Negative)
[2023-07-27 13:17] LABS: Urine Appearance Cloudy (CLEAR); Urine Color Brown (Yellow); pH Urine 5 (5-7)
[2023-07-27 13:18] LABS: Add Urine Microscopic? YES; Bilirubin Urine 1+ (Negative); Blood Urine 3+ (Negative); Glucose Urine UA Norm (Normal); Ketones Urine Negative (Negative); Leukocyte Esterase Urine 2+ (Negative); Nitrate Urine Negative (Negative); Protein Urine 3+ (Negative); RBC Urine >100 /hpf (0-2); Urobilinogen Urine Norm (Negative)
[2023-07-27 13:19] LABS: Add Urine Culture? No; Bacteria Urine 2+ /hpf; Coarse Granular Casts Urine 25-40 /lpf; WBC Urine 25-40 /hpf (0-5)
[2023-07-27] MEDS: potassium phosphate (mEq K) 40 MEQ in sodium chloride 0.9% (100 ml) 100 ML 27.27 MEQ IV (13:35)
[2023-07-27 14:13] LABS: Partial Thromboplastin Time 106.5 SECONDS (23.9-36.7)
--- NOTE | 2023-07-27 14:39 | P.PN_ITS ---
Subjective 2 Subjective: Admitted overnight. Seen with multiple family members at bedside. H&P and labs appreciated. Patient lying comfortably in bed. Denies any chest pain. Is complaining of mild shortness of breath. Not on supplemental oxygen. Antoine catheter in place. Complaining of chills earlier in the morning. Tmax of 100.6 on admission. Vitals/I&O/Wt Last Vital Signs Temp 98.8 F 07/27/23 13:00 Pulse 78 07/27/23 13:00 Resp 18 07/27/23 13:00 BP 118/68 07/27/23 13:00 Pulse Ox 95 07/27/23 13:00 O2 Del Method Room Air 07/27/23 11:56 07/26/23 07/27/23 07/27/23 22:59 06:59 14:59 Intake Total 1000 / 1000 Output Total 100 / 100 Balance 1000 / 1000 -100 / 900 Weight last 48 hrs Weight 110.79 kg Weight 110.677 kg Weight 110.994 kg Weight 136.078 kg Physical Exam 2 Narrative: General: No acute distress, AO x3, sick appearing, mildly diaphoretic HEENT: PERRLA, pupils bilaterally equal and reactive Chest: Bilateral bronchial breath sounds all over lung ji with diffuse rhonchi CVS: S1-S2 regular, no murmurs, no tachycardia, no gallops, no rubs Abdomen: Soft, nontender, no organomegaly, bowel sounds present Neuro: No focal deficits, no facial deformity, AO x3, power 5/5 in all limbs Urinary Catheter Management: Antoine: Cath Placed During This Visit: no Reason for Continuing Indwelling Catheter: Acute Urinary Retention or Obstruction Data 07/27/23 04:21 07/27/23 04:21 Micro: Microbiology 07/27/23 07:15 Blood Culture - Preliminary Blood SPECIMEN COLLECTED 07/27/23 04:21 Blood Culture - Preliminary Blood SPECIMEN COLLECTED A&P Assessment and plan (1) Sepsis: (2) Acute kidney insufficiency: (3) Dehydration: (4) Syncope and collapse: (5) D-dimer, elevated: (6) Cystitis: (7) Prostatitis: (8) Non-ST elevation WY (NSTEMI): (9) Elevated troponin: Plan Syncope and collapse: Could be in setting of sepsis versus possible non-ST elevation WY versus PE. Echocardiogram done but results pending. Appreciate cardiology recommendations. Monitor blood pressures. Keep mean artery pressure over 65. Elevated troponin/non-ST elevation WY: Delta troponin positive. Echocardiogram pending. Patient already on heparin drip. Continue with aspirin, statin, Plavix. Appreciate A1c, check lipid panel Appreciate cardiology recommendations. Elevated D-dimer: Along with elevated proBNP. Given syncope and collapse with mild subjective fever shortness of breath and hypoxia and hypercapnia on admission cannot rule out PE. Lower limb Doppler negative for DVT. Patient already on heparin drip. CTA cannot be done because of MARY CARMEN. Ventilation/perfusion scan ordered. MARY CARMEN: Could be in setting of recent prostate biopsy. Check urine lites, urine creatinine, urine eosinophils. Normal saline at 75 cc/h. Monitor BMP daily. No electrolyte or metabolic acidosis. Sepsis: Most likely in setting of cystitis versus prostatitis. Ruled out on admission with tachycardia, elevated lactate, leukocytosis. Target organ dysfunction with MARY CARMEN. Recent prostate biopsy Switch antibiotics to IV vancomycin and Zosyn to cover Pseudomonas and MRSA. Follow-up blood cultures, urine culture. Elevated lactate on admission. Patient received fluid bolus on admission. Iron deficiency anemia: Start on oral iron supplementation. Monitor hemoglobin daily for now. Start on Pulmicort and DuoNeb every 6 hours. CODE STATUS: Discussed in detail with patient. Full code. Switch diet to renal nondialysis Heparin drip will suffice as DVT prophylaxis Protonix for PUD prophylaxis. Transfer patient to [facility]. Attestations 2 Medical Necessity Statement*: Requires further hospitalization for management of sepsis in setting of possible cystitis versus prostatitis, elevated troponin with high concerns for nonstressed duration WY while PE cannot be ruled out, acute kidney injury requiring heparin drip Diagnoses Sepsis A41.9 Acute kidney insufficiency N28.9 Dehydration E86.0 Syncope and collapse R55 D-dimer, elevated R79.89 Cystitis N30.90 Prostatitis N41.9 Non-ST elevation WY (NSTEMI) I21.4 Elevated troponin R79.89
[2023-07-27] MEDS: piperacillin-tazobactam 3.375 GM in sodium chloride 0.9% (plus) 50 ML IV ×2 (16:10→22:54)
[2023-07-27] MEDS: budesonide 0.5 mg/2 mL Neb INHALATION (20:20)
[2023-07-27 22:37] LABS: Partial Thromboplastin Time 77.2 SECONDS (23.9-36.7)
[2023-07-28] VITALS (15 sets, daily range): BP systolic 113–147; BP diastolic 58–82; PULSE 73–94; RESP 16–30; TEMP 37.1–37.6; O2SAT 92–97
[2023-07-28 00:55] LABS: Acinetobacter baumannii Not Detected (NOT DETECT); Bacteroides fragilis Not Detected (NOT DETECT); CTX-M Not Detected (NOT DETECT); Citrobacter Not Detected (NOT DETECT); Cronobacter sakazakii Not Detected (NOT DETECT); Enterobacter cloacae complex Not Detected (NOT DETECT); Enterobacter non cloacae Not Detected (NOT DETECT); Fusobacterium necrophorum Not Detected (NOT DETECT); Fusobacterium nucleatum Not Detected (NOT DETECT); Haemophilus influenzae Not Detected (NOT DETECT); IMP Resistance Gene Not Detected (NOT DETECT); KPC Resistance Gene Not Detected (NOT DETECT); Klebsiella pneumoniae group Not Detected (NOT DETECT); Morganella morganii Not Detected (NOT DETECT); NDM Resistance Gene Not Detected (NOT DETECT); Neisseria meningitidis Not Detected (NOT DETECT); OXA Resistance Gene Not Detected (NOT DETECT); Pan Candida Not Detected (NOT DETECT); Pan Gram-Positive Not Detected (NOT DETECT); Proteus mirabilis Not Detected (NOT DETECT); Pseudomonas aeruginosa Not Detected (NOT DETECT); Salmonella Not Detected (NOT DETECT); Serratia Not Detected (NOT DETECT); Serratia marcescens Not Detected (NOT DETECT); Stenotrophomonas maltophilia Not Detected (NOT DETECT); VIM Resistance Gene Not Detected (NOT DETECT)
[2023-07-28] MEDS: sodium chloride 0.9% 1,000 ML 50 ML IV ×2 (01:08→14:19)
[2023-07-28] MEDS: heparin drip 25,000 UNIT/500 ML PREMIX 26 UNIT IV (01:12)
[2023-07-28] MEDS: ipratropium-albuterol 3 mL Neb INHALATION ×4 (01:45→20:13)
[2023-07-28 05:52] LABS: Basophils # 0.1 10^3/uL (0.0-0.1); Basophils % 0.3 %; Hematocrit 37.7 % (37-53); Lymphocytes # 1.2 10^3/uL (0.8-4.8); Lymphocytes % 5.5 %; Mean Corpuscular HGB Conc 33.4 g/dL (30-55); Mean Corpuscular Hemoglobin 29.7 pg (27-33); Mean Corpuscular Volume 88.9 fl (82-101); Mean Platelet Volume 10.7 fL (7.4-10.4); Monocytes # 1.4 10^3/uL (0.2-0.9); Monocytes % 6.4 %; Neutrophils # 17.57 10^3/uL (1.8-7.7); Neutrophils % 81.5 %; Nucleated Red Blood Cells % 0 %; Platelet Count 136 10^3/cmm (157-399); Red Blood Count 4.24 10^6/uL (3.85-5.65); Red Cell Distribution Width 14.3 % (12.1-15.1); White Blood Count 21.54 10^3/uL (3.29-11.43)
[2023-07-28] MEDS: piperacillin-tazobactam 3.375 GM in sodium chloride 0.9% (plus) 50 ML IV ×3 (05:59→20:38)
[2023-07-28 06:10] LABS: Partial Thromboplastin Time 65.8 SECONDS (23.9-36.7)
[2023-07-28 06:19] LABS: Alanine Aminotransferase 72 U/L (0-41); Albumin Level 2.8 g/dL (3.5-5.2); Alkaline Phosphatase 77 U/L (40-130); Anion Gap 15.9 (5-19); Aspartate Amino Transferase 306 U/L (0-40); Blood Urea Nitrogen 39 mg/dL (8-23); Calcium 7.5 mg/dL (8.5-10.5); Carbon Dioxide 21 mmol/L (22-29); Chloride 102 mmol/L (98-107); Globulin 2.7 g/dL (1.3-4.6); Glucose 171 mg/dL (65-115); Osmolality Calculated 293 mOsm/kg (285-295); Potassium 3.9 mmol/L (3.5-5.1); Sodium 135 mmol/L (136-145); Total Bilirubin 1.1 mg/dL (0.15-1.2); Total Protein 5.5 g/dL (6.6-8.7)
[2023-07-28 06:22] LABS: Cholesterol 96 mg/dL (0-200); HDL Cholesterol 24 mg/dL (60-100); LDL Cholesterol Calculated 37 mg/dL (50-129); Magnesium 1.7 mg/dL (1.7-2.3); Phosphorus 2.8 mg/dL (2.5-4.5); Triglycerides 175 mg/dL (0-150); VLDL Cholestrol Calculation 35 mg/dL (0-30)
[2023-07-28 07:57] LABS: Folate Level 4.6 ng/mL (4.5-32.2)
[2023-07-28] MEDS: budesonide 0.5 mg/2 mL Neb INHALATION ×2 (08:03→20:14)
--- NOTE | 2023-07-28 09:01 | P.PN_ITS ---
Subjective 2 Subjective: The patient is still having low-grade fever. He is complaining of abdominal distention. White cell count seems to be going up. Has no chest pain. The BUN and creatinine also is seem to be going up. Denies any shortness of breath. No significant arrhythmias on the monitor Medications: Medication Review Details: Current Medications Acetaminophen (Acetaminophen 500 Mg Tablet) 500 mg PO Q4H PRN PRN Reason: fever Last Admin: 07/27/23 03:37 Dose: 500 mg Albuterol/Ipratropium (Ipratropium-Albuterol 3 Ml Neb) 3 ml INHALATION Q6H PRN PRN Reason: SHORTNESS OF BREATH Last Admin: 07/27/23 11:55 Dose: 3 ml Albuterol/Ipratropium (Ipratropium-Albuterol 3 Ml Neb) 3 ml INHALATION Q6H.RESP SANDEE Last Admin: 07/28/23 08:04 Dose: 3 ml Aspirin (Aspirin 81 Mg Ec Tablet) 81 mg PO DAILY SANDEE Last Admin: 07/27/23 11:11 Dose: 81 mg Atorvastatin Calcium (Atorvastatin 40 Mg Tablet) 80 mg PO BEDTIME SANDEE Last Admin: 07/27/23 22:09 Dose: Not Given Budesonide (Budesonide 0.5 Mg/2 Ml Neb) 0.5 mg INHALATION BID.RESPIRATORY SANDEE Last Admin: 07/28/23 08:03 Dose: 0.5 mg Clopidogrel Bisulfate (Clopidogrel 75 Mg Tablet) 75 mg PO DAILY SANDEE Last Admin: 07/27/23 11:11 Dose: 75 mg Heparin Sodium (Porcine) (Heparin 5,000 Unit/Ml Inj 1 Ml) 0 unit IV PRN PRN; Protocol PRN Reason: Heparin weight-base protocol Last Admin: 07/27/23 07:15 Dose: 5,500 unit Sodium Chloride (Sodium Chloride 0.9%) 1,000 mls @ 75 mls/hr IV .[id number] SANDEE Last Admin: 07/28/23 01:08 Dose: 50 mls/hr Heparin Sodium/Sodium Chloride (Heparin Drip) 25,000 unit in 500 mls @ 0 mls/hr IV .Q0M SANEDE; Protocol Last Titration: 07/28/23 06:20 Dose: 11.75 unit/kg/hr, 26 mls/hr Piperacillin Sod/Tazobactam (Sod 3.375 gm/ Sodium Chloride) 50 mls @ 12.5 mls/hr IV Q8H SANDEE; Protocol Last Admin: 07/28/23 05:59 Dose: 12.5 mls/hr Vancomycin/PEG/NADA/Lysine/Water (Vancocin) 1,250 mg in 250 mls @ 250 mls/hr IV Q24H SANDEE Ondansetron HCl (Ondansetron 2 Mg/Ml Sdv 2 Ml) 4 mg IVP Q6H PRN PRN Reason: NAUSEA AND VOMITING Pantoprazole Sodium (Pantoprazole 40 Mg Sdv) 40 mg IVP DAILY [facility] Vitals/I&O/Wt Last Vital Signs Temp 98.9 F 07/28/23 04:00 Pulse 94 07/28/23 08:06 Resp 18 07/28/23 08:06 BP 116/58 07/28/23 04:00 Pulse Ox 94 07/28/23 08:06 O2 Del Method Room Air 07/28/23 08:06 07/27/23 07/28/23 07/28/23 22:59 06:59 14:59 Intake Total 822.3376 / 822.3376 1869.640 / 2691.9776 Output Total 380 / 380 350 / 730 Balance 442.3376 / 442.3376 1519.640 / 1961.9776 Weight last 48 hrs Weight 251 lb 3.2 oz Weight 244 lb 4 oz Weight 244 lb Weight 244 lb 11.2 oz Weight 300 lb Physical Exam 2 Narrative: GENERAL: The patient is alert and oriented times three. Not in any acute distress. HEENT: No significant pallor, icterus or lymphadenopathy.Oral cavity: There are no mucous membrane lesions. Superficial ecchymotic areas on the face NECK: Trachea appears to be central. No masses noted. No JVD or thyromegaly appreciated. RESPIRATORY: Chest is symmetrical. No intercostals muscle retraction or any accessory muscle activation. There is no chest wall tenderness. Breath sounds are heard bilaterally. No rales or rhonchi heard. No evidence of any consolidation. BREASTS: Deferred. HEART: The heart sounds are normal. No S3 or S4. No significant murmurs. No pericardial rub ABDOMEN: The abdomen is is somewhat distended , more gracious. Vague tenderness in the epigastric area. Bowel sounds are normally heard. : Deferred. RECTAL: Deferred. LYMPHATIC: No lymphadenopathy noted in the neck. EXTREMITIES: No edema or cyanosis. No clubbing. MUSCULOSKELETAL: No acute joint deformities or swelling SKIN: There are no significant rashes or ecchymosis NEUROPSYCHIATRIC: The patient is alert and oriented x3. Appears to be in a good mood. No tremors or rigidity noted. Urinary Catheter Management: Antoine: Cath Placed During This Visit: no Reason for Continuing Indwelling Catheter: Accurate Measurement of Urinary Output in Critically Ill Patients Data 07/28/23 05:00 07/28/23 05:00 Other Labs: Laboratory Last Values WBC 21.54 10^3/uL (3.29-11.43) H 07/28/23 05:00 RBC 4.24 10^6/uL (3.85-5.65) 07/28/23 05:00 Hgb 12.60 g/dL (11.27-16.99) 07/28/23 05:00 Hct 37.7 % (37-53) 07/28/23 05:00 MCV 88.9 fl (82-101) 07/28/23 05:00 MCH 29.7 pg (27-33) 07/28/23 05:00 MCHC 33.4 g/dL (30-55) 07/28/23 05:00 RDW 14.3 % (12.1-15.1) 07/28/23 05:00 Plt Count 136 10^3/cmm (157-399) L 07/28/23 05:00 MPV 10.7 fL (7.4-10.4) H 07/28/23 05:00 Neut % (Auto) 81.5 % 07/28/23 05:00 Lymph % (Auto) 5.5 % 07/28/23 05:00 [place] % (Auto) 6.4 % 07/28/23 05:00 Eos % (Auto) 0.0 % 07/28/23 05:00 Baso % (Auto) 0.3 % 07/28/23 05:00 Neut # (Auto) 17.57 10^3/uL (1.8-7.7) H 07/28/23 05:00 Lymph # (Auto) 1.2 10^3/uL (0.8-4.8) 07/28/23 05:00 [place] # (Auto) 1.4 10^3/uL (0.2-0.9) H 07/28/23 05:00 Eos # (Auto) 0.0 10^3/uL (0.0-0.8) 07/28/23 05:00 Baso # (Auto) 0.1 10^3/uL (0.0-0.1) 07/28/23 05:00 Nucleated RBC % (auto) 0 % 07/28/23 05:00 Nucleated RBCs # 0.0 /100WBC 07/28/23 05:00 PT 15.30 SECONDS (12.1-14.9) H 07/26/23 20:42 INR 1.17 (0.8-1.2) 07/26/23 20:42 APTT 65.8 SECONDS (23.9-36.7) H 07/28/23 05:00 D-Dimer 18.51 ug/mLFEU (0-0.59) H 07/27/23 00:00 Specimen Type Arterial 07/27/23 02:48 Sample Site Radial, left 07/27/23 02:48 ABG pH 7.43 (7.35-7.45) 07/27/23 02:48 ABG pCO2 33.2 mmHg (35-45) L 07/27/23 02:48 ABG pO2 64.1 mmHg (80.0-100.0) L 07/27/23 02:48 ABG PO2/FiO2 Ratio 0 07/27/23 02:48 ABG HCO3 22.1 mmol/L (22-26) 07/27/23 02:48 ABG Base Excess -1.5 mmol/L (-2.0-2.0) 07/27/23 02:48 Ortiz Test Pos 07/27/23 02:48 Hematocrit 44.4 % (42-52) 07/27/23 02:48 O2 Delivery Device Nc 07/27/23 02:48 FiO2 21.0 % 07/27/23 02:48 Dipper Operator ID Rodriguez 07/27/23 02:48 Sodium 135 mmol/L (136-145) L 07/28/23 05:00 Potassium 3.9 mmol/L (3.5-5.1) 07/28/23 05:00 Chloride 102 mmol/L (98-107) 07/28/23 05:00 Carbon Dioxide 21 mmol/L (22-29) L 07/28/23 05:00 Anion Gap 15.9 (5-19) 07/28/23 05:00 BUN 39 mg/dL (8-23) H 07/28/23 05:00 Creatinine 2.4 mg/dL (0.7-1.2) H 07/28/23 05:00 GFR Calculation Not Reportable 07/28/23 05:00 Glucose 171 mg/dL (65-115) H 07/28/23 05:00 Estimat Average Glucose 134 07/27/23 04:21 Hemoglobin A1c 6.3 % (4.0-6.0) H 07/27/23 04:21 Calculated Osmolality 293 mOsm/kg (285-295) 07/28/23 05:00 Lactic Acid 3.5 mmol/L (0.5-2.2) H 07/27/23 00:00 Lactic Acid (Sepsis) 3.8 mmol/L (0.5-2.2) H 07/27/23 04:21 Lactate 3.8 mmol/L (0.5-2.2) H 07/27/23 07:15 Calcium 7.5 mg/dL (8.5-10.5) L 07/28/23 05:00 Phosphorus 2.8 mg/dL (2.5-4.5) 07/28/23 05:00 Magnesium 1.7 mg/dL (1.7-2.3) 07/28/23 05:00 Iron 9 ug/dL (59-158) L 07/27/23 04:21 TIBC 217 mcg/dl 07/27/23 04:21 % Saturation 4.1 % (20-50) L 07/27/23 04:21 Unsat Iron Binding 208 ug/dL (112-347) 07/27/23 04:21 Total Bilirubin 1.1 mg/dL (0.15-1.2) 07/28/23 05:00 AST 306 U/L (0-40) H 07/28/23 05:00 ALT 72 U/L (0-41) H 07/28/23 05:00 Alkaline Phosphatase 77 U/L (40-130) 07/28/23 05:00 Troponin T Baseline 236 ng/L (0-15) H* 07/27/23 04:21 Troponin T 120 Minute 219.8 ng/L (0-15) H 07/27/23 07:15 Delta Troponin T -16.2 ABS# (0-10) L 07/27/23 07:15 Troponin T Hi Sens 6Hr 170.1 ng/L (0-15) H 07/27/23 10:36 Troponin T Hi Sens 6Hr Delta -65.9 ng/L (0-12) L 07/27/23 10:36 C-Reactive Protein 103.4 mg/L (0.0-4.9) H 07/27/23 04:21 NT-Pro-B Natriuret Pep 5638 pg/mL (0-450) H 07/27/23 04:21 Total Protein 5.5 g/dL (6.6-8.7) L 07/28/23 05:00 Albumin 2.8 g/dL (3.5-5.2) L 07/28/23 05:00 Globulin 2.7 g/dL (1.3-4.6) 07/28/23 05:00 Triglycerides 175 mg/dL (0-150) H 07/28/23 05:00 Cholesterol 96 mg/dL (0-200) 07/28/23 05:00 LDL Cholesterol, Calc 37 mg/dL (50-129) L 07/28/23 05:00 Total VLDL Cholesterol 35 mg/dL (0-30) H 07/28/23 05:00 HDL Cholesterol 24 mg/dL (60-100) L 07/28/23 05:00 Cholesterol/HDL Ratio 4.00 mg/dL (1.0-5.00) 07/28/23 05:00 Vitamin B12 287 pg/mL (232-1245) 07/27/23 04:21 Folate 4.6 ng/mL (4.5-32.2) 07/28/23 05:00 Procalcitonin 66.13 ng/mL (0-0.5) H 07/27/23 00:00 TSH 0.88 uIU/mL (0.27-4.20) 07/27/23 04:21 Urine Color Brown (Yellow) A 07/27/23 12:04 Urine Color Cancelled 07/27/23 12:04 Urine Appearance Cancelled 07/27/23 12:04 Urine Appearance Cloudy (CLEAR) A 07/27/23 12:04 Urine pH 5 (5-7) 07/27/23 12:04 Urine pH Cancelled 07/27/23 12:04 Ur Specific [place] 1.020 (1.005-1.030) 07/27/23 12:04 Ur Specific [place] Cancelled 07/27/23 12:04 Urine Protein 3+ (Negative) H 07/27/23 12:04 Urine Protein Cancelled 07/27/23 12:04 Urine Glucose (UA) Cancelled 07/27/23 12:04 Urine Glucose (UA) Norm (Normal) 07/27/23 12:04 Urine Ketones Cancelled 07/27/23 12:04 Urine Ketones Negative (Negative) 07/27/23 12:04 Urine Blood 3+ (Negative) H 07/27/23 12:04 Urine Blood Cancelled 07/27/23 12:04 Urine Nitrate Cancelled 07/27/23 12:04 Urine Nitrate Negative (Negative) 07/27/23 12:04 Urine Bilirubin 1+ (Negative) H 07/27/23 12:04 Urine Bilirubin Cancelled 07/27/23 12:04 Prot Sulfosalicylic Acd Cancelled 07/27/23 12:04 Urine Urobilinogen Cancelled 07/27/23 12:04 Urine Urobilinogen Norm mg/dL (Negative) 07/27/23 12:04 Ur Leukocyte Esterase 2+ (Negative) H 07/27/23 12:04 Ur Leukocyte Esterase Cancelled 07/27/23 12:04 Urine RBC >100 /hpf (0-2) H 07/27/23 12:04 Urine WBC 25-40 /hpf (0-5) H 07/27/23 12:04 Ur Squamous Epith Cells None /hpf (0-5) 07/27/23 12:04 Amorphous Sediment Not Reportable 07/27/23 12:04 Urine Bacteria 2+ /hpf (NONE) H 07/27/23 12:04 Coarse Granular Casts 25-40 /lpf H 07/27/23 12:04 Nasal Influ A H1 2008 PCR Not detected (NOT DETECT) 07/27/23 01:20 Urine Opiates Screen Negative ng/mL (Negative) 07/27/23 12:04 Ur Barbiturates Screen Negative ng/mL (Negative) 07/27/23 12:04 Ur Phencyclidine Scrn Negative ng/mL (Negative) 07/27/23 12:04 Ur Amphetamines Screen Negative ng/mL (Negative) 07/27/23 12:04 U Benzodiazepines Scrn Negative ng/mL (Negative) 07/27/23 12:04 Urine Cocaine Screen Negative ng/mL (Negative) 07/27/23 12:04 U Marijuana (THC) Screen Negative ng/mL (Negative) 07/27/23 12:04 Adenovirus (PCR) Not detected (NOT DETECT) 07/27/23 01:20 C. pneumoniae DNA (PCR) Not detected (NOT DETECT) 07/27/23 01:20 Coronavirus 229E (PCR) Not detected (NOT DETECT) 07/27/23 01:20 Human Metapneumovir PCR Not detected (NOT DETECT) 07/27/23 01:20 Influenza A (H1) PCR Not detected (NOT DETECT) 07/27/23 01:20 Influenza A (H3) PCR Not detected (NOT DETECT) 07/27/23 01:20 Influenza Type A (PCR) Not detected (NOT DETECT) 07/27/23 01:20 Influenza Type B (PCR) Not detected (NOT DETECT) 07/27/23 01:20 M. pneumoniae (PCR) Not detected (NOT DETECT) 07/27/23 01:20 Parainfluenza 1 (PCR) Not detected (NOT DETECT) 07/27/23 01:20 Parainfluenza 2 (PCR) Not detected (NOT DETECT) 07/27/23 01:20 Parainfluenza 3 (PCR) Not detected (NOT DETECT) 07/27/23 01:20 Parainfluenza 4 (PCR) Not detected (NOT DETECT) 07/27/23 01:20 RSV Type A (PCR) Not detected (NOT DETECT) 07/27/23 01:20 RSV Type B (PCR) Not detected (NOT DETECT) 07/27/23 01:20 Entero/Rhino (PCR) Not detected (NOT DETECT) 07/27/23 01:20 SARS-CoV-2 (PCR) Not detected (NOT DETECT) 07/27/23 01:20 Micro: Microbiology 07/27/23 12:04 Urine Culture - Preliminary Urine Catheterized Gram Negative Rods 07/27/23 07:15 Blood Culture - Preliminary Blood NEGATIVE TO DATE 07/27/23 04:21 Blood Culture - Preliminary Blood Escherichia coli 07/28/23 05:00 Blood Culture - Preliminary Blood SPECIMEN COLLECTED 07/28/23 05:00 Blood Culture - Preliminary Blood SPECIMEN COLLECTED 07/27/23 12:04 Bacterial Antigens - Final Urine Kidney Other data: The echocardiogram from yesterday revealed Normal left ventricular size and systolic function, EF 64 %. No regional wall motion abnormalities. Mild left ventricular hypertrophy. Grade I/IV diastolic dysfunction (abnormal relaxation filling pattern), normal to mildly elevated filling pressures. Thickened aortic valve Normal cardiac chamber sizes There is no pericardial effusion. No similar previous studies are available for comparison A&P Assessment and plan (1) Elevated troponin: Possibility of a non-ST elevation myocardial infarction is a consideration. Hemodynamically the patient is stable. Echocardiogram did not reveal a significant wall motion abnormalities. We may consider doing a Myocardial perfusion imaging to further evaluate the coronary status. Based on the results, further recommendations will be made Because of the abnormal kidney function, we may do a Myocardial perfusion imaging tomorrow to further evaluate. (2) Acute kidney insufficiency: The exact etiology is not clear. The BUN/creatinine levels seems to be going up. Requires further evaluation. The elevated white cell count and abdominal distention may suggest an abdominal pathology (3) Syncope and collapse: This could be multifactorial. Vasovagal reaction, hypotension, cardiac arrhythmia, etc. are considerations. Patient needs to be closely monitored on telemetry. Adequate hydration would be appropriate. Coronary ischemia causing this also is a consideration. (4) Viral illness: Patient is on empiric antibiotics. (5) D-dimer, elevated: The venous Doppler examination was unremarkable. CT of the chest did not reveal any PE. May not require any further investigation at this point (6) Elevated brain natriuretic peptide (BNP) level: Acute diastolic heart failure is a consideration. Currently the patient is compensated. Most likely the ischemia might be the contributing factor Plan Other problems are COPD Status post prostate biopsy We may go ahead and do a Lexiscan/sestamibi/sestamibi stress test tomorrow. Based on the results, further management decisions will be made. The current admission findings were discussed with the patient and his family in detail which they understood well. Attestations 2 Medical Necessity Statement*: Patient requires continued hospital stay for close monitoring and further management Coding Level of Care Code 20783 Diagnoses Elevated troponin R79.89 Acute kidney insufficiency N28.9 Syncope and collapse R55 Viral illness B34.9 D-dimer, elevated R79.89 Elevated brain natriuretic peptide (BNP) level R79.89
[2023-07-28] MEDS: aspirin 81 mg EC Tablet PO (09:16)
[2023-07-28] MEDS: pantoprazole 40 mg SDV IVP (09:16)
[2023-07-28] MEDS: clopidogrel 75 mg Tablet PO (09:16)
[2023-07-28] MEDS: vancomycin 1,250 MG/250 ML PIGGYBACK 250 MG IV (13:16)
[2023-07-28 13:31] LABS: Partial Thromboplastin Time 56.3 SECONDS (23.9-36.7)
--- NOTE | 2023-07-28 14:52 | P.PN_ITS ---
Vitals/I&O/Wt Last Vital Signs Temp 98.7 F 07/28/23 12:00 Pulse 87 07/28/23 14:37 Resp 16 07/28/23 14:37 BP 147/80 07/28/23 12:00 Pulse Ox 96 07/28/23 14:37 O2 Del Method Room Air 07/28/23 14:37 07/27/23 07/28/23 07/28/23 22:59 06:59 14:59 Intake Total 822.3376 / 822.3376 1869.640 / 2691.9776 1279.167 / 1279.167 Output Total 380 / 380 350 / 730 525 / 525 Balance 442.3376 / 442.3376 1519.640 / 1961.9776 754.167 / 754.167 Weight last 48 hrs Weight 113.398 kg Weight 113.942 kg Weight 110.79 kg Weight 110.677 kg Weight 110.994 kg Weight 136.078 kg Physical Exam 2 Narrative: General: No acute distress, AO x3, sick appearing, mildly diaphoretic HEENT: PERRLA, pupils bilaterally equal and reactive Chest: Bilateral bronchial breath sounds all over lung ji with diffuse rhonchi CVS: S1-S2 regular, no murmurs, no tachycardia, no gallops, no rubs Abdomen: Soft, nontender, no organomegaly, bowel sounds present Neuro: No focal deficits, no facial deformity, AO x3, power 5/5 in all limbs Urinary Catheter Management: Antoine: Cath Placed During This Visit: no Reason for Continuing Indwelling Catheter: Accurate Measurement of Urinary Output in Critically Ill Patients Data 07/28/23 05:00 07/28/23 05:00 Micro: Microbiology 07/27/23 12:04 Urine Culture - Preliminary Urine Catheterized Gram Negative Rods 07/27/23 07:15 Blood Culture - Preliminary Blood NEGATIVE TO DATE 07/27/23 04:21 Blood Culture - Preliminary Blood Escherichia coli 07/28/23 05:00 Blood Culture - Preliminary Blood SPECIMEN COLLECTED 07/28/23 05:00 Blood Culture - Preliminary Blood SPECIMEN COLLECTED 07/27/23 12:04 Bacterial Antigens - Final Urine Kidney A&P Assessment and plan (1) Bacterial infection due to E. coli: (2) Sepsis: (3) Acute kidney insufficiency: (4) Dehydration: (5) Syncope and collapse: (6) D-dimer, elevated: (7) Cystitis: (8) Prostatitis: (9) Non-ST elevation [place] (NSTEMI): (10) Elevated troponin: Plan Syncope and collapse: Could be in setting of sepsis versus possible non-ST elevation [place] versus PE. Echocardiogram done but results pending. Appreciate cardiology recommendations. Monitor blood pressures. Keep mean artery pressure over 65. Elevated troponin/non-ST elevation [place]: Delta troponin positive. Echocardiogram pending. Patient already on heparin drip. Continue with aspirin, statin, Plavix. Appreciate A1c, check lipid panel Appreciate cardiology recommendations. Elevated D-dimer: Along with elevated proBNP. Given syncope and collapse with mild subjective fever shortness of breath and hypoxia and hypercapnia on admission cannot rule out PE. Lower limb Doppler negative for DVT. Patient already on heparin drip. CTA cannot be done because of MARY CARMEN. Ventilation/perfusion scan ordered. MARY CARMEN: Could be in setting of recent prostate biopsy. Check urine lites, urine creatinine, urine eosinophils. Normal saline at 75 cc/h. Monitor BMP daily. No electrolyte or metabolic acidosis. E. coli bacteremia: Repeat blood cultures sent on 07/28. Sepsis: Most likely in setting of cystitis versus prostatitis. Ruled out on admission with tachycardia, elevated lactate, leukocytosis. Target organ dysfunction with MARY CARMEN. Recent prostate biopsy Switch antibiotics to IV vancomycin and Zosyn to cover Pseudomonas and MRSA. Follow-up blood cultures, urine culture. Elevated lactate on admission. Patient received fluid bolus on admission. Iron deficiency anemia: Start on oral iron supplementation. Monitor hemoglobin daily for now. Start on Pulmicort and DuoNeb every 6 hours. CODE STATUS: Discussed in detail with patient. Patient's and daughter will be the DPOA. Full code. But does not want to remain on mechanical ventilator for a long time. Renal nondialysis Heparin drip will suffice as DVT prophylaxis Protonix for PUD prophylaxis. Plan for the day: Continue with IV vancomycin and Zosyn for now. Blood cultures growing E. coli. Repeat blood cultures sent today. Urine culture growing gram-negative rods. Will await speciation. For now continue with both vancomycin and Zosyn. MRSA swab pending. Persistent leukocytosis. Still having some episodes of diarrhea. C. difficile sent out. Will follow results before starting oral vancomycin. Patient denies any chest pain. Appreciate cardiology recommendations. Continue with heparin drip. Echocardiogram appreciated for grade 1 diastolic dysfunction without regional wall motion abnormality and EF of 65%. Renal function slightly worsened today. Urine output slightly improving. Increase IV fluids to 100 cc/h. Monitor BMP daily for now. D-dimer elevated on admission. Patient remains on room air. PE less likely but cannot be ruled out. VQ scan in a.m. tomorrow. Can plan for Lexiscan stress test versus cardiac angiogram once patient is more stable. Care discussed in detail with patient's family at bedside. All the questions were answered. Attestations 2 Medical Necessity Statement*: Requires further hospitalization for management of E. coli bacteremia in setting of cystitis versus prostatitis, MARY CARMEN, non-ST elevation [place] Diagnoses Bacterial infection due to E. coli A49.8 Sepsis A41.9 Acute kidney insufficiency N28.9 Dehydration E86.0 Syncope and collapse R55 D-dimer, elevated R79.89 Cystitis N30.90 Prostatitis N41.9 Non-ST elevation [place] (NSTEMI) I21.4 Elevated troponin R79.89
[2023-07-28 17:34] LABS: Partial Thromboplastin Time 52.8 SECONDS (23.9-36.7)
[2023-07-28] MEDS: heparin drip 25,000 UNIT/500 ML PREMIX 28 UNIT IV (20:33)
[2023-07-29] VITALS (26 sets, daily range): BP systolic 130–159; BP diastolic 66–98; PULSE 70–97; RESP 16–34; TEMP 36.8–37.1; O2SAT 85–97
[2023-07-29] MEDS: sodium chloride 0.9% 1,000 ML 100 ML IV ×3 (00:21→21:09)
[2023-07-29 01:35] LABS: Basophils % 0.2 %; Eosinophils # 0.1 10^3/uL (0.0-0.8); Eosinophils % 0.5 %; Hematocrit 37.3 % (37-53); Lymphocytes # 1.1 10^3/uL (0.8-4.8); Lymphocytes % 7.4 %; Mean Corpuscular HGB Conc 33.2 g/dL (30-55); Mean Corpuscular Hemoglobin 29.5 pg (27-33); Mean Corpuscular Volume 88.6 fl (82-101); Mean Platelet Volume 10.6 fL (7.4-10.4); Monocytes # 0.6 10^3/uL (0.2-0.9); Neutrophils # 12.58 10^3/uL (1.8-7.7); Nucleated Red Blood Cells % 0 %; Platelet Count 138 10^3/cmm (157-399); Red Blood Count 4.21 10^6/uL (3.85-5.65); Red Cell Distribution Width 14.4 % (12.1-15.1); White Blood Count 14.99 10^3/uL (3.29-11.43)
[2023-07-29 01:47] LABS: Partial Thromboplastin Time 52.5 SECONDS (23.9-36.7)
[2023-07-29 01:50] LABS: Phosphorus 2.4 mg/dL (2.5-4.5)
[2023-07-29 01:51] LABS: Alanine Aminotransferase 67 U/L (0-41); Albumin Level 2.7 g/dL (3.5-5.2); Alkaline Phosphatase 107 U/L (40-130); Anion Gap 12.8 (5-19); Aspartate Amino Transferase 222 U/L (0-40); Blood Urea Nitrogen 30 mg/dL (8-23); Calcium 7.4 mg/dL (8.5-10.5); Carbon Dioxide 21 mmol/L (22-29); Chloride 106 mmol/L (98-107); Globulin 2.9 g/dL (1.3-4.6); Glucose 151 mg/dL (65-115); Osmolality Calculated 291 mOsm/kg (285-295); Potassium 3.8 mmol/L (3.5-5.1); Sodium 136 mmol/L (136-145); Total Bilirubin 0.6 mg/dL (0.15-1.2); Total Protein 5.6 g/dL (6.6-8.7)
[2023-07-29 02:19] LABS: Slide Review Slide Review Perform
[2023-07-29] MEDS: heparin 5,000 unit/mL INJ 1 mL IV (03:01)
[2023-07-29] MEDS: heparin drip 25,000 UNIT/500 ML PREMIX 30 UNIT IV ×2 (03:02→15:17)
[2023-07-29] MEDS: acetaminophen 500 mg Tablet PO ×2 (04:12→20:13)
[2023-07-29] MEDS: piperacillin-tazobactam 3.375 GM in sodium chloride 0.9% (plus) 50 ML IV ×3 (06:06→21:08)
--- NOTE | 2023-07-29 08:08 | SUR.PREOP ---
STRESS NOTE Patient wants to speak with ordering md about the test before proceeding. On hold at this point.
[2023-07-29] MEDS: ipratropium-albuterol 3 mL Neb INHALATION ×2 (08:53→21:57)
--- NOTE | 2023-07-29 08:58 | P.PN_ITS ---
Subjective 2 Subjective: Patient is still having nausea and generalized weakness. The abdomen remains distended. No chest pain or unusual shortness of breath. Vitals are stable. No arrhythmias on the monitor. Medications: Medication Review Details: Current Medications Acetaminophen (Acetaminophen 500 Mg Tablet) 500 mg PO Q4H PRN PRN Reason: fever Last Admin: 07/29/23 04:12 Dose: 500 mg Albuterol/Ipratropium (Ipratropium-Albuterol 3 Ml Neb) 3 ml INHALATION Q6H PRN PRN Reason: SHORTNESS OF BREATH Last Admin: 07/27/23 11:55 Dose: 3 ml Albuterol/Ipratropium (Ipratropium-Albuterol 3 Ml Neb) 3 ml INHALATION Q6H.RESP SANDEE Last Admin: 07/29/23 08:53 Dose: 3 ml Aminophylline (Aminophylline 25 Mg/Ml Sdv 10 Ml) 25 mg IVP Q2M PRN PRN Reason: see dose instructions Stop: 07/30/23 07:26 Aspirin (Aspirin 81 Mg Ec Tablet) 81 mg PO DAILY SANDEE Last Admin: 07/28/23 09:16 Dose: 81 mg Atorvastatin Calcium (Atorvastatin 40 Mg Tablet) 80 mg PO BEDTIME SANDEE Last Admin: 07/28/23 20:46 Dose: Not Given Budesonide (Budesonide 0.5 Mg/2 Ml Neb) 0.5 mg INHALATION BID.RESPIRATORY SANDEE Last Admin: 07/29/23 08:57 Dose: Not Given Clopidogrel Bisulfate (Clopidogrel 75 Mg Tablet) 75 mg PO DAILY SANDEE Last Admin: 07/28/23 09:16 Dose: 75 mg Heparin Sodium (Porcine) (Heparin 5,000 Unit/Ml Inj 1 Ml) 0 unit IV PRN PRN; Protocol PRN Reason: Heparin weight-base protocol Last Admin: 07/29/23 03:01 Dose: 2,200 unit Sodium Chloride (Sodium Chloride 0.9%) 1,000 mls @ 100 mls/hr IV .Q10H SANDEE Last Admin: 07/29/23 00:21 Dose: 100 mls/hr Heparin Sodium/Sodium Chloride (Heparin Drip) 25,000 unit in 500 mls @ 0 mls/hr IV .Q0M SANDEE; Protocol Last Admin: 07/29/23 03:02 Dose: 13.55 unit/kg/hr, 30 mls/hr Piperacillin Sod/Tazobactam (Sod 3.375 gm/ Sodium Chloride) 50 mls @ 12.5 mls/hr IV Q8H [facility]; Protocol Last Admin: 07/29/23 06:06 Dose: 12.5 mls/hr Vancomycin/PEG/NADA/Lysine/Water (Vancocin) 1,250 mg in 250 mls @ 250 mls/hr IV Q24H [facility] Last Infusion: 07/28/23 14:48 Dose: Infused Lanolin (Lanolin Oint 7 Gm) 1 applic TOPICAL PRN PRN PRN Reason: DRYNESS Nitroglycerin (Nitroglycerin 0.4 Mg Sublingual Tablet) 0.4 mg SUBLINGUAL Q5M PRN PRN Reason: CHEST PAIN Stop: 07/30/23 07:26 Ondansetron HCl (Ondansetron 2 Mg/Ml Sdv 2 Ml) 4 mg IVP Q6H PRN PRN Reason: NAUSEA AND VOMITING Pantoprazole Sodium (Pantoprazole 40 Mg Sdv) 40 mg IVP DAILY [facility] Last Admin: 07/28/23 09:16 Dose: 40 mg Regadenoson (Regadenoson 0.4 Mg/5 Ml Syringe) 0.4 mg IVP ONCE PRN PRN Reason: Lexiscan Stress Test Vitals/I&O/Wt Last Vital Signs Temp 98.5 F 07/29/23 08:48 Pulse 78 07/29/23 08:48 Resp 20 H 07/29/23 08:48 BP 147/83 07/29/23 08:48 Pulse Ox 94 07/29/23 08:48 O2 Del Method CPAP 07/29/23 01:35 07/28/23 07/29/23 07/29/23 22:59 06:59 14:59 Intake Total 636.533 / 3411.265 5980.866 / 3123.066 240 / 240 Output Total 575 / 1100 750 / 1850 Balance 61.533 / 843.200 429.866 / 1273.066 240 / 240 Weight last 48 hrs Weight 250 lb Weight 251 lb 3.2 oz Physical Exam 2 Narrative: GENERAL: The patient is alert and oriented times three. Not in any acute distress. HEENT: No significant pallor, icterus or lymphadenopathy.Oral cavity: There are no mucous membrane lesions. Superficial ecchymotic areas on the face NECK: Trachea appears to be central. No masses noted. No JVD or thyromegaly appreciated. RESPIRATORY: Chest is symmetrical. No intercostals muscle retraction or any accessory muscle activation. There is no chest wall tenderness. Breath sounds are heard bilaterally. No rales or rhonchi heard. No evidence of any consolidation. BREASTS: Deferred. HEART: The heart sounds are normal. No S3 or S4. No significant murmurs. No pericardial rub ABDOMEN: The abdomen is distended with hyperactive bowel sounds. Vague tenderness in the epigastric area. Bowel sounds are normally heard. : Deferred. RECTAL: Deferred. LYMPHATIC: No lymphadenopathy noted in the neck. EXTREMITIES: No edema or cyanosis. No clubbing. MUSCULOSKELETAL: No acute joint deformities or swelling SKIN: There are no significant rashes or ecchymosis NEUROPSYCHIATRIC: The patient is alert and oriented x3. Appears to be in a good mood. No tremors or rigidity noted. Urinary Catheter Management: Antoine: Cath Placed During This Visit: no Reason for Continuing Indwelling Catheter: Acute Urinary Retention or Obstruction Data 07/29/23 01:05 07/29/23 01:05 Other Labs: PT 15.30 SECONDS (12.1-14.9) H 07/26/23 20:42 APTT 52.5 SECONDS (23.9-36.7) H 07/29/23 01:05 Laboratory Last Values WBC 14.99 10^3/uL (3.29-11.43) H 07/29/23 01:05 RBC 4.21 10^6/uL (3.85-5.65) 07/29/23 01:05 Hgb 12.40 g/dL (11.27-16.99) 07/29/23 01:05 Hct 37.3 % (37-53) 07/29/23 01:05 MCV 88.6 fl (82-101) 07/29/23 01:05 MCH 29.5 pg (27-33) 07/29/23 01:05 MCHC 33.2 g/dL (30-55) 07/29/23 01:05 RDW 14.4 % (12.1-15.1) 07/29/23 01:05 Plt Count 138 10^3/cmm (157-399) L 07/29/23 01:05 MPV 10.6 fL (7.4-10.4) H 07/29/23 01:05 Neut % (Auto) 84.0 % 07/29/23 01:05 Lymph % (Auto) 7.4 % 07/29/23 01:05 [place] % (Auto) 4.0 % 07/29/23 01:05 Eos % (Auto) 0.5 % 07/29/23 01:05 Baso % (Auto) 0.2 % 07/29/23 01:05 Neut # (Auto) 12.58 10^3/uL (1.8-7.7) H 07/29/23 01:05 Lymph # (Auto) 1.1 10^3/uL (0.8-4.8) 07/29/23 01:05 [place] # (Auto) 0.6 10^3/uL (0.2-0.9) 07/29/23 01:05 Eos # (Auto) 0.1 10^3/uL (0.0-0.8) 07/29/23 01:05 Baso # (Auto) 0.0 10^3/uL (0.0-0.1) 07/29/23 01:05 Nucleated RBC % (auto) 0 % 07/29/23 01:05 Nucleated RBCs # 0.0 /100WBC 07/29/23 01:05 PT 15.30 SECONDS (12.1-14.9) H 07/26/23 20:42 INR 1.17 (0.8-1.2) 07/26/23 20:42 APTT 52.5 SECONDS (23.9-36.7) H 07/29/23 01:05 D-Dimer 18.51 ug/mLFEU (0-0.59) H 07/27/23 00:00 Specimen Type Arterial 07/27/23 02:48 Sample Site Radial, left 07/27/23 02:48 ABG pH 7.43 (7.35-7.45) 07/27/23 02:48 ABG pCO2 33.2 mmHg (35-45) L 07/27/23 02:48 ABG pO2 64.1 mmHg (80.0-100.0) L 07/27/23 02:48 ABG PO2/FiO2 Ratio 0 07/27/23 02:48 ABG HCO3 22.1 mmol/L (22-26) 07/27/23 02:48 ABG Base Excess -1.5 mmol/L (-2.0-2.0) 07/27/23 02:48 Ortiz Test Pos 07/27/23 02:48 Hematocrit 44.4 % (42-52) 07/27/23 02:48 O2 Delivery Device Nc 07/27/23 02:48 FiO2 21.0 % 07/27/23 02:48 Weekend Receptionist ID Rodriguez 07/27/23 02:48 Sodium 136 mmol/L (136-145) 07/29/23 01:05 Potassium 3.8 mmol/L (3.5-5.1) 07/29/23 01:05 Chloride 106 mmol/L (98-107) 07/29/23 01:05 Carbon Dioxide 21 mmol/L (22-29) L 07/29/23 01:05 Anion Gap 12.8 (5-19) 07/29/23 01:05 BUN 30 mg/dL (8-23) H 07/29/23 01:05 Creatinine 1.8 mg/dL (0.7-1.2) H 07/29/23 01:05 GFR Calculation Not Reportable 07/29/23 01:05 Glucose 151 mg/dL (65-115) H 07/29/23 01:05 Estimat Average Glucose 134 07/27/23 04:21 Hemoglobin A1c 6.3 % (4.0-6.0) H 07/27/23 04:21 Calculated Osmolality 291 mOsm/kg (285-295) 07/29/23 01:05 Lactic Acid 3.5 mmol/L (0.5-2.2) H 07/27/23 00:00 Lactic Acid (Sepsis) 3.8 mmol/L (0.5-2.2) H 07/27/23 04:21 Lactate 3.8 mmol/L (0.5-2.2) H 07/27/23 07:15 Calcium 7.4 mg/dL (8.5-10.5) L 07/29/23 01:05 Phosphorus 2.4 mg/dL (2.5-4.5) L 07/29/23 01:05 Magnesium 2.0 mg/dL (1.7-2.3) 07/29/23 01:05 Iron 9 ug/dL (59-158) L 07/27/23 04:21 TIBC 217 mcg/dl 07/27/23 04:21 % Saturation 4.1 % (20-50) L 07/27/23 04:21 Unsat Iron Binding 208 ug/dL (112-347) 07/27/23 04:21 Total Bilirubin 0.6 mg/dL (0.15-1.2) 07/29/23 01:05 AST 222 U/L (0-40) H 07/29/23 01:05 ALT 67 U/L (0-41) H 07/29/23 01:05 Alkaline Phosphatase 107 U/L (40-130) 07/29/23 01:05 Troponin T Baseline 236 ng/L (0-15) H* 07/27/23 04:21 Troponin T 120 Minute 219.8 ng/L (0-15) H 07/27/23 07:15 Delta Troponin T -16.2 ABS# (0-10) L 07/27/23 07:15 Troponin T Hi Sens 6Hr 170.1 ng/L (0-15) H 07/27/23 10:36 Troponin T Hi Sens 6Hr Delta -65.9 ng/L (0-12) L 07/27/23 10:36 C-Reactive Protein 103.4 mg/L (0.0-4.9) H 07/27/23 04:21 NT-Pro-B Natriuret Pep 5638 pg/mL (0-450) H 07/27/23 04:21 Total Protein 5.6 g/dL (6.6-8.7) L 07/29/23 01:05 Albumin 2.7 g/dL (3.5-5.2) L 07/29/23 01:05 Globulin 2.9 g/dL (1.3-4.6) 07/29/23 01:05 Triglycerides 175 mg/dL (0-150) H 07/28/23 05:00 Cholesterol 96 mg/dL (0-200) 07/28/23 05:00 LDL Cholesterol, Calc 37 mg/dL (50-129) L 07/28/23 05:00 Total VLDL Cholesterol 35 mg/dL (0-30) H 07/28/23 05:00 HDL Cholesterol 24 mg/dL (60-100) L 07/28/23 05:00 Cholesterol/HDL Ratio 4.00 mg/dL (1.0-5.00) 07/28/23 05:00 Vitamin B12 287 pg/mL (232-1245) 07/27/23 04:21 Folate 4.6 ng/mL (4.5-32.2) 07/28/23 05:00 Procalcitonin 66.13 ng/mL (0-0.5) H 07/27/23 00:00 TSH 0.88 uIU/mL (0.27-4.20) 07/27/23 04:21 Urine Color Brown (Yellow) A 07/27/23 12:04 Urine Color Cancelled 07/27/23 12:04 Urine Appearance Cancelled 07/27/23 12:04 Urine Appearance Cloudy (CLEAR) A 07/27/23 12:04 Urine pH 5 (5-7) 07/27/23 12:04 Urine pH Cancelled 07/27/23 12:04 Ur Specific [place] 1.020 (1.005-1.030) 07/27/23 12:04 Ur Specific [place] Cancelled 07/27/23 12:04 Urine Protein 3+ (Negative) H 07/27/23 12:04 Urine Protein Cancelled 07/27/23 12:04 Urine Glucose (UA) Cancelled 07/27/23 12:04 Urine Glucose (UA) Norm (Normal) 07/27/23 12:04 Urine Ketones Cancelled 07/27/23 12:04 Urine Ketones Negative (Negative) 07/27/23 12:04 Urine Blood 3+ (Negative) H 07/27/23 12:04 Urine Blood Cancelled 07/27/23 12:04 Urine Nitrate Cancelled 07/27/23 12:04 Urine Nitrate Negative (Negative) 07/27/23 12:04 Urine Bilirubin 1+ (Negative) H 07/27/23 12:04 Urine Bilirubin Cancelled 07/27/23 12:04 Prot Sulfosalicylic Acd Cancelled 07/27/23 12:04 Urine Urobilinogen Cancelled 07/27/23 12:04 Urine Urobilinogen Norm mg/dL (Negative) 07/27/23 12:04 Ur Leukocyte Esterase 2+ (Negative) H 07/27/23 12:04 Ur Leukocyte Esterase Cancelled 07/27/23 12:04 Urine RBC >100 /hpf (0-2) H 07/27/23 12:04 Urine WBC 25-40 /hpf (0-5) H 07/27/23 12:04 Ur Squamous Epith Cells None /hpf (0-5) 07/27/23 12:04 Amorphous Sediment Not Reportable 07/27/23 12:04 Urine Bacteria 2+ /hpf (NONE) H 07/27/23 12:04 Coarse Granular Casts 25-40 /lpf H 07/27/23 12:04 Nasal Influ A H1 2009 PCR Not detected (NOT DETECT) 07/27/23 01:20 Urine Opiates Screen Negative ng/mL (Negative) 07/27/23 12:04 Ur Barbiturates Screen Negative ng/mL (Negative) 07/27/23 12:04 Ur Phencyclidine Scrn Negative ng/mL (Negative) 07/27/23 12:04 Ur Amphetamines Screen Negative ng/mL (Negative) 07/27/23 12:04 U Benzodiazepines Scrn Negative ng/mL (Negative) 07/27/23 12:04 Urine Cocaine Screen Negative ng/mL (Negative) 07/27/23 12:04 U Marijuana (THC) Screen Negative ng/mL (Negative) 07/27/23 12:04 Adenovirus (PCR) Not detected (NOT DETECT) 07/27/23 01:20 C. pneumoniae DNA (PCR) Not detected (NOT DETECT) 07/27/23 01:20 Coronavirus 229E (PCR) Not detected (NOT DETECT) 07/27/23 01:20 Human Metapneumovir PCR Not detected (NOT DETECT) 07/27/23 01:20 Influenza A (H1) PCR Not detected (NOT DETECT) 07/27/23 01:20 Influenza A (H3) PCR Not detected (NOT DETECT) 07/27/23 01:20 Influenza Type A (PCR) Not detected (NOT DETECT) 07/27/23 01:20 Influenza Type B (PCR) Not detected (NOT DETECT) 07/27/23 01:20 M. pneumoniae (PCR) Not detected (NOT DETECT) 07/27/23 01:20 Parainfluenza 1 (PCR) Not detected (NOT DETECT) 07/27/23 01:20 Parainfluenza 2 (PCR) Not detected (NOT DETECT) 07/27/23 01:20 Parainfluenza 3 (PCR) Not detected (NOT DETECT) 07/27/23 01:20 Parainfluenza 4 (PCR) Not detected (NOT DETECT) 07/27/23 01:20 RSV Type A (PCR) Not detected (NOT DETECT) 07/27/23 01:20 RSV Type B (PCR) Not detected (NOT DETECT) 07/27/23 01:20 Entero/Rhino (PCR) Not detected (NOT DETECT) 07/27/23 01:20 SARS-CoV-2 (PCR) Not detected (NOT DETECT) 07/27/23 01:20 Micro: Microbiology 07/28/23 05:00 Blood Culture - Preliminary Blood NEGATIVE TO DATE 07/28/23 05:00 Blood Culture - Preliminary Blood NEGATIVE TO DATE 07/27/23 12:04 Urine Culture - Preliminary Urine Catheterized Gram Negative Rods 07/27/23 07:15 Blood Culture - Preliminary Blood NEGATIVE TO DATE 07/27/23 04:21 Blood Culture - Preliminary Blood Escherichia coli A&P Assessment and plan (1) Elevated troponin: Possible non-ST relation ID. No significant EKG changes. (2) Syncope and collapse: This could be multifactorial. Vasovagal reaction, hypotension, cardiac arrhythmia, etc. are considerations. Patient needs to be closely monitored on telemetry. Adequate hydration would be appropriate. Coronary ischemia causing this also is a consideration. No significant arrhythmias on the monitor so far (3) Acute kidney insufficiency: The exact etiology is not clear. The BUN/creatinine levels seems to be going up. Requires further evaluation. The elevated white cell count and abdominal distention may suggest an abdominal pathology (4) Viral illness: Patient is on empiric antibiotics. (5) D-dimer, elevated: The venous Doppler examination was unremarkable. CT of the chest did not reveal any PE. May not require any further investigation at this point (6) Elevated brain natriuretic peptide (BNP) level: Acute diastolic heart failure is a consideration. Currently the patient is compensated. Most likely the ischemia might be the contributing factor Plan Other problems are COPD Status post prostate biopsy The Lexiscan/sestamibi/sestamibi stress test was canceled this morning because of the abdominal distention and discomfort. We may wait till the infection is properly controlled and the abdominal distention is improved. May continue on the current medications. Attestations 2 Medical Necessity Statement*: Patient requires continued hospital stay for close monitoring and further management Coding Level of Care Code Acute Code for Chg Fwd Diagnoses Elevated troponin R79.89 Syncope and collapse R55 Acute kidney insufficiency N28.9 Viral illness B34.9 D-dimer, elevated R79.89 Elevated brain natriuretic peptide (BNP) level R79.89
[2023-07-29] MEDS: aspirin 81 mg EC Tablet PO (09:09)
[2023-07-29] MEDS: clopidogrel 75 mg Tablet PO (09:09)
[2023-07-29] MEDS: pantoprazole 40 mg SDV IVP (09:09)
[2023-07-29 09:49] LABS: Partial Thromboplastin Time 63.6 SECONDS (23.9-36.7)
--- NOTE | 2023-07-29 10:22 | PC.SOCIAL ---
IMM Update Pg. 2 of IMM updated and reviewed with patient, who verbalized understanding. Copy provided.
[2023-07-29] MEDS: vancomycin 1,250 MG/250 ML PIGGYBACK 250 MG IV (12:17)
[2023-07-29] MEDS: lanolin oint 7 gm 1 APPLIC TOPICAL (13:55)
[2023-07-29 14:39] LABS: Methicillin-Resist S.aureu PCR NOT DETECTED (NOT DETECTED)
[2023-07-29 17:19] LABS: Partial Thromboplastin Time 52.8 SECONDS (23.9-36.7)
[2023-07-29] MEDS: atorvastatin 40 mg Tablet 80 MG PO (21:09)
[2023-07-29] MEDS: budesonide 0.5 mg/2 mL Neb INHALATION (21:57)
[2023-07-29 23:44] LABS: Partial Thromboplastin Time 60.8 SECONDS (23.9-36.7)
--- NOTE | 2023-07-29 23:55 | P.PN_ITS ---
Subjective 2 Subjective: She used to walk without issues in the past, but currently getting worn out walking just to the chair. Feeling quite bloated/gassy. Passed some gas this morning with some relief, but abdomen is still quite distended. Has not vomited. Denies any pain, burning, swelling in his perineum. Vitals/I&O/Wt Last Vital Signs Temp 98.2 F 07/29/23 23:48 Pulse 76 07/29/23 23:48 Resp 16 07/29/23 23:48 BP 153/77 07/29/23 23:48 Pulse Ox 97 07/29/23 23:48 O2 Del Method Room Air 07/29/23 23:48 07/29/23 07/29/23 07/30/23 14:59 22:59 06:59 Intake Total 1780 / 1780 1877.5 / 3657.5 Output Total 525 / 525 0 / 525 Balance 1255 / 1255 1877.5 / 3132.5 Weight last 48 hrs Weight 116.403 kg Weight 113.398 kg Weight 113.942 kg Physical Exam 2 Narrative: Accompanied by family Const: COMMON NORMALS: patient oriented x3 and alert GENERAL APPEARANCE: c ooperative ORIENTATION/CONSCIOUSNESS: Yes awake HENMT: COMMON NORMALS: oropharynx normal Neck/C-Spine: COMMON NORMALS: no JVD Resp: COMMON NORMALS: normal respiratory effort and clear to auscultation bilaterally AUSCULTATION: clear to auscultation bilaterally Cardio: COMMON NORMALS: no JVD, regular rhythm, S1 normal heart sound present, S2 normal heart sound present and No murmurs present (Cardio) RHYTHM: regular rhythm HEART SOUNDS: S1 normal heart sound present and S2 normal heart sound present GI: COMMON NORMALS: Normal to inspection, nondistended, normoactive bowel sounds present, Soft to palpation and non-tender PALPATION: Yes Soft to palpation OTHER: Abdomen distended Extremity: COMMON NORMALS: no joint enlargement and no pedal edema Neuro: COMMON NORMALS: patient oriented x3 and moves all extremities S ENSORIUM/ORIENTATION: Yes alert Skin: COMMON NORMALS: no rashes or lesions noted GENERAL SKIN EXAM: no rashes or lesions noted Urinary Catheter Management: Antoine: Cath Placed During This Visit: no Reason for Continuing Indwelling Catheter: Accurate Measurement of Urinary Output in Critically Ill Patients Data 07/29/23 01:05 07/29/23 01:05 Micro: Microbiology 07/27/23 12:04 Urine Culture - Final Urine Catheterized Escherichia coli 07/28/23 05:00 Blood Culture - Preliminary Blood NEGATIVE TO DATE 07/28/23 05:00 Blood Culture - Preliminary Blood NEGATIVE TO DATE A&P Assessment and plan (1) Bacterial infection due to E. coli: (2) Sepsis: (3) Acute kidney insufficiency: (4) Dehydration: (5) Syncope and collapse: (6) D-dimer, elevated: (7) Cystitis: (8) Prostatitis: (9) Non-ST elevation [place] (NSTEMI): (10) Elevated troponin: Plan Syncope and collapse: Could be in setting of sepsis versus possible non-ST elevation [place] versus PE. Echocardiogram done, reviewed as below. Has been planned for VQ scan, but similarly would likely not be able to optimally participate. Continue anticoagulation as discussed with him and family. Reassess for improvement in abdominal distention, bloating, monitor oxygenation. Consider obtaining VQ scan. Monitor blood pressures. Keep mean artery pressure over 65. Discussed with case management. Abdominal distention: He has been quite bloated, with abdominal distention, although does not appear to be obstructed, he is passing gas, stools, but is quite distended. Reviewed CT scan from 2 days ago. Discussed with him and family. They were under impression that he was getting some probiotics. Although on review medications this does not appear to be the case. Discussed changing diet to lactose-free. This has been adjusted. Additionally discussed mobilization, he has had difficulties with ambulation with deconditioning, generalized weakness, but he will sit in a chair, and has been walking to the chair and back to bed. Will hold further IV fluids. He has had no vomiting, no diarrhea, and despite distention abdomen is otherwise benign. However, we discussed additional reimaging in case of change of symptoms or any other concerning developments. Elevated troponin/non-ST elevation [place]: Reviewed cardiology notes. Noted recommendation for stress testing, however, this was canceled today due to abdominal distention and likely inability to complete the test. For now this is held off. Continue monitoring on telemetry and for symptoms changes. Echocardiogram reviewed, noted normal ejection fraction, no RWMA. Grade 1 diastolic dysfunction. Continues on heparin drip. Monitor PTT. At risk of bleeding. Reassess CBC. Continue with aspirin, statin, Plavix. With NSTEMI, MARY CARMEN on CKD, advanced age, possible PE, at elevated risk of complication, mortality. Monitor on CSU on telemetry. Elevated D-dimer: Along with elevated proBNP. Pending VQ scan. Given syncope and collapse with mild subjective fever shortness of breath and hypoxia and hypercapnia on admission cannot rule out PE. Lower limb Doppler negative for DVT. Patient already on heparin drip. CTA cannot be done because of MARY CARMEN. Ventilation/perfusion scan ordered. MARY CARMEN: Noted with some improvements in BUN, creatinine. Stop IVF. Monitor BMP daily. No electrolyte or metabolic acidosis. E. coli bacteremia: Repeat blood cultures sent on 07/28. Sepsis: Most likely in setting of cystitis versus prostatitis. He is not having symptoms of prostatitis, however, is freshly after prostate biopsy. There are signs of cystitis although unclear that cystitis should lead to bacteremia. Certainly a complicated urinary tract infection. Reviewed urine culture, blood culture. Follow-up. Switch antibiotic to ceftriaxone. Stop Zosyn, vancomycin. Reviewed vitals, CBC, CMP, magnesium. Leukocytosis noted to be improving. Noted thrombocytopenia 138. Repeat CBC. Iron deficiency anemia: Start on oral iron supplementation. Monitor hemoglobin daily for now. Start on Pulmicort and DuoNeb every 6 hours. CODE STATUS: Discussed in detail with patient. Patient's and daughter will be the DPOA. Full code. But does not want to remain on mechanical ventilator for a long time. Renal nondialysis Heparin drip will suffice as DVT prophylaxis Protonix for PUD prophylaxis. Attestations 2 Medical Necessity Statement*: Continue admission for assessment and management after syncope, collapse, NSTEMI, assessment for PE, anticoagulation, complicated UTI after recent prostate biopsy. Diagnoses Bacterial infection due to E. coli A49.8 Sepsis A41.9 Acute kidney insufficiency N28.9 Dehydration E86.0 Syncope and collapse R55 D-dimer, elevated R79.89 Cystitis N30.90 Prostatitis N41.9 Non-ST elevation [place] (NSTEMI) I21.4 Elevated troponin R79.89
[2023-07-30] VITALS (31 sets, daily range): BP systolic 130–168; BP diastolic 67–90; PULSE 64–93; RESP 14–31; TEMP 36.7–37.1; O2SAT 92–98
[2023-07-30] MEDS: cefTRIAXone 1,000 MG in sodium chloride 0.9% (plus) 50 ML 100 MG IV ×2 (02:21→23:24)
[2023-07-30 05:03] LABS: Magnesium 2.1 mg/dL (1.7-2.3); Phosphorus 2.3 mg/dL (2.5-4.5)
--- NOTE | 2023-07-30 07:08 | SUR.PREOP ---
Stress reordered for today. Resumed today.
--- NOTE | 2023-07-30 07:32 | SUR.PREOP ---
Patient refusal Patient refused stress test this morning. Canceled at his request.
[2023-07-30] MEDS: heparin drip 25,000 UNIT/500 ML PREMIX 32 UNIT IV ×2 (07:40→23:26)
[2023-07-30 07:55] LABS: Partial Thromboplastin Time 55.7 SECONDS (23.9-36.7)
[2023-07-30] MEDS: acetaminophen 500 mg Tablet PO ×3 (08:10→21:06)
[2023-07-30] MEDS: clopidogrel 75 mg Tablet PO (08:10)
[2023-07-30] MEDS: aspirin 81 mg EC Tablet PO (08:10)
[2023-07-30] MEDS: pantoprazole 40 mg SDV IVP (08:11)
[2023-07-30 08:28] LABS: Basophils # 0.1 10^3/uL (0.0-0.1); Basophils % 0.4 %; Eosinophils # 0.1 10^3/uL (0.0-0.8); Eosinophils % 0.9 %; Hematocrit 35.9 % (37-53); Lymphocytes # 1.1 10^3/uL (0.8-4.8); Lymphocytes % 9.5 %; Mean Corpuscular HGB Conc 33.1 g/dL (30-55); Mean Corpuscular Hemoglobin 29.9 pg (27-33); Mean Corpuscular Volume 90.2 fl (82-101); Mean Platelet Volume 11.3 fL (7.4-10.4); Neutrophils # 9.72 10^3/uL (1.8-7.7); Neutrophils % 80.6 %; Nucleated Red Blood Cells % 0 %; Platelet Count 139 10^3/cmm (157-399); Red Blood Count 3.98 10^6/uL (3.85-5.65); Red Cell Distribution Width 14.8 % (12.1-15.1); White Blood Count 12.06 10^3/uL (3.29-11.43)
[2023-07-30 08:57] LABS: Alanine Aminotransferase 72 U/L (0-41); Alkaline Phosphatase 95 U/L (40-130); Aspartate Amino Transferase 177 U/L (0-40); Blood Urea Nitrogen 24 mg/dL (8-23); Calcium 7.3 mg/dL (8.5-10.5); Carbon Dioxide 20 mmol/L (22-29); Chloride 107 mmol/L (98-107); Glucose 98 mg/dL (65-115); Osmolality Calculated 288 mOsm/kg (285-295); Sodium 137 mmol/L (136-145); Total Bilirubin 0.5 mg/dL (0.15-1.2)
--- NOTE | 2023-07-30 09:04 | PC.CHAP ---
Pastoral Care Encounter/Spiritual Assessment Type of Contact [] Declined drilling assistant visit [] Patient/Family/Request visit [] Outpatient visit [] Follow-up visit [] Physician referral [] Code/Alert [] Routine visit [] Staff referral [] Actively dying [] Patient sleeping [] Family support [] [] Out of room [] Palliative care [] [x] Receiving care in room [] Pre-surgical visit [] Trauma [] Long length of stay [] ICU visit [] Other: Relational/Emotional Strength [] Patient feels connected with others/family/visitors/staff [] Distress [] Loneliness/isolation [] Abandonment Spirituality of Patient [] Person of Sofía [] Attends [facility] of their Sofía [] Believes in Prayer [] Reads Bible or Mandaeism materials [] There are Spiritual issues to be addressed Sink Cutter Interventions [] Prayer [] Active listening [] Non-anxious presence [] Spiritual/emotional support [] Crisis/trauma care [] Spiritual counseling [] Bereavement support [] Provided bereavement packet [] Provided Bible/devotional materials [] Provided toy/stuffed animal, coloring book to patient or family member [] Provided Communion [] Anointing/[place] [] Salvation [] Completed spiritual assessment [] Other: Impact on Illness or Injury [] Angry [] Fearful [] Anxious [] Often cries [] Exhaustion [] Unable to work [] Unable to attend rastafari [] Unable to walk/stand [] Unable to read [] Unable to drive [] Unable to eat/drink [] Unable to sleep [] Unable to be with family [] Patient intubated [] Other: Summary Time spent with patient
--- NOTE | 2023-07-30 09:32 | PM.PN ---
Subjective Subjective: The patient is feeling little better. Still has the feeling of weakness, nausea and the abdominal distention. The white cell count seems to be coming down. Abdominal distention also is little better. Medications: Medication Review Details: Current Medications Acetaminophen (Acetaminophen 500 Mg Tablet) 500 mg PO Q4H PRN PRN Reason: fever Last Admin: 07/30/23 08:10 Dose: 500 mg Albuterol/Ipratropium (Ipratropium-Albuterol 3 Ml Neb) 3 ml INHALATION Q6H PRN PRN Reason: SHORTNESS OF BREATH Last Admin: 07/27/23 11:55 Dose: 3 ml Aspirin (Aspirin 81 Mg Ec Tablet) 81 mg PO DAILY SANDEE Last Admin: 07/30/23 08:10 Dose: 81 mg Atorvastatin Calcium (Atorvastatin 40 Mg Tablet) 80 mg PO BEDTIME [facility]DEE Last Admin: 07/29/23 21:09 Dose: 80 mg Budesonide (Budesonide 0.5 Mg/2 Ml Neb) 0.5 mg INHALATION BID.RESPIRATORY PRN PRN Reason: SHORTNESS OF BREATH Clopidogrel Bisulfate (Clopidogrel 75 Mg Tablet) 75 mg PO DAILY [facility] Last Admin: 07/30/23 08:10 Dose: 75 mg Heparin Sodium (Porcine) (Heparin 5,000 Unit/Ml Inj 1 Ml) 0 unit IV PRN PRN; Protocol PRN Reason: Heparin weight-base protocol Last Admin: 07/29/23 03:01 Dose: 2,200 unit Sodium Chloride (Sodium Chloride 0.9%) 1,000 mls @ 100 mls/hr IV .Q10H SANDEE Last Admin: 07/29/23 21:09 Dose: 100 mls/hr Heparin Sodium/Sodium Chloride (Heparin Drip) 25,000 unit in 500 mls @ 0 mls/hr IV .Q0M SANDEE; Protocol Last Admin: 07/30/23 07:40 Dose: 14.46 unit/kg/hr, 32 mls/hr Ceftriaxone Sodium 1,000 mg/ (Sodium Chloride) 50 mls @ 100 mls/hr IV Q24H SANDEE; Protocol Last Titration: 07/30/23 03:12 Dose: 0 mls/hr Lanolin (Lanolin Oint 7 Gm) 1 applic TOPICAL PRN PRN PRN Reason: DRYNESS Last Admin: 07/29/23 13:55 Dose: 1 applic Ondansetron HCl (Ondansetron 2 Mg/Ml Sdv 2 Ml) 4 mg IVP Q6H PRN PRN Reason: NAUSEA AND VOMITING Pantoprazole Sodium (Pantoprazole 40 Mg Sdv) 40 mg IVP DAILY SANDEE Last Admin: 07/30/23 08:11 Dose: 40 mg Vitals/I&O/Wt Last Vital Signs Temp 98.3 F 07/30/23 07:26 Pulse 72 07/30/23 08:34 Resp 20 H 07/30/23 08:34 BP 168/88 07/30/23 07:26 Pulse Ox 96 07/30/23 08:34 O2 Del Method Room Air 07/30/23 08:34 07/29/23 07/30/23 07/30/23 22:59 06:59 14:59 Intake Total 1877.5 / 3657.5 50 / 3707.5 640 / 640 Output Total 0 / 525 Balance 1877.5 / 3132.5 50 / 3182.5 640 / 640 Weight last 48 hrs Weight 256 lb Weight 256 lb 10 oz Physical Exam Narrative: GENERAL: The patient is alert and oriented times three. Not in any acute distress. HEENT: No significant pallor, icterus or lymphadenopathy.Oral cavity: There are no mucous membrane lesions. Superficial ecchymotic areas on the face NECK: Trachea appears to be central. No masses noted. No JVD or thyromegaly appreciated. RESPIRATORY: Chest is symmetrical. No intercostals muscle retraction or any accessory muscle activation. There is no chest wall tenderness. Breath sounds are heard bilaterally. No rales or rhonchi heard. No evidence of any consolidation. BREASTS: Deferred. HEART: The heart sounds are normal. No S3 or S4. No significant murmurs. No pericardial rub ABDOMEN: The abdomen is distended with hyperactive bowel sounds. Vague tenderness in the epigastric area. Bowel sounds are normally heard. : Deferred. RECTAL: Deferred. LYMPHATIC: No lymphadenopathy noted in the neck. EXTREMITIES: No edema or cyanosis. No clubbing. MUSCULOSKELETAL: No acute joint deformities or swelling SKIN: There are no significant rashes or ecchymosis NEUROPSYCHIATRIC: The patient is alert and oriented x3. Appears to be in a good mood. No tremors or rigidity noted. Urinary Catheter Management: Antoine: Cath Placed During This Visit: no Reason for Continuing Indwelling Catheter: Accurate Measurement of Urinary Output in Critically Ill Patients Data 07/30/23 03:57 07/30/23 03:57 Other Labs: Laboratory Last Values WBC 12.06 10^3/uL (3.29-11.43) H 07/30/23 03:57 RBC 3.98 10^6/uL (3.85-5.65) 07/30/23 03:57 Hgb 11.90 g/dL (11.27-16.99) 07/30/23 03:57 Hct 35.9 % (37-53) L 07/30/23 03:57 MCV 90.2 fl (82-101) 07/30/23 03:57 MCH 29.9 pg (27-33) 07/30/23 03:57 MCHC 33.1 g/dL (30-55) 07/30/23 03:57 RDW 14.8 % (12.1-15.1) 07/30/23 03:57 Plt Count 139 10^3/cmm (157-399) L 07/30/23 03:57 MPV 11.3 fL (7.4-10.4) H 07/30/23 03:57 Neut % (Auto) 80.6 % 07/30/23 03:57 Lymph % (Auto) 9.5 % 07/30/23 03:57 [place] % (Auto) 8.0 % 07/30/23 03:57 Eos % (Auto) 0.9 % 07/30/23 03:57 Baso % (Auto) 0.4 % 07/30/23 03:57 Neut # (Auto) 9.72 10^3/uL (1.8-7.7) H 07/30/23 03:57 Lymph # (Auto) 1.1 10^3/uL (0.8-4.8) 07/30/23 03:57 [place] # (Auto) 1.0 10^3/uL (0.2-0.9) H 07/30/23 03:57 Eos # (Auto) 0.1 10^3/uL (0.0-0.8) 07/30/23 03:57 Baso # (Auto) 0.1 10^3/uL (0.0-0.1) 07/30/23 03:57 Nucleated RBC % (auto) 0 % 07/30/23 03:57 Nucleated RBCs # 0.0 /100WBC 07/30/23 03:57 PT 15.30 SECONDS (12.1-14.9) H 07/26/23 20:42 INR 1.17 (0.8-1.2) 07/26/23 20:42 APTT 55.7 SECONDS (23.9-36.7) H 07/30/23 07:22 D-Dimer 18.51 ug/mLFEU (0-0.59) H 07/27/23 00:00 Specimen Type Arterial 07/27/23 02:48 Sample Site Radial, left 07/27/23 02:48 ABG pH 7.43 (7.35-7.45) 07/27/23 02:48 ABG pCO2 33.2 mmHg (35-45) L 07/27/23 02:48 ABG pO2 64.1 mmHg (80.0-100.0) L 07/27/23 02:48 ABG PO2/FiO2 Ratio 0 07/27/23 02:48 ABG HCO3 22.1 mmol/L (22-26) 07/27/23 02:48 ABG Base Excess -1.5 mmol/L (-2.0-2.0) 07/27/23 02:48 Ortiz Test Pos 07/27/23 02:48 Hematocrit 44.4 % (42-52) 07/27/23 02:48 O2 Delivery Device Nc 07/27/23 02:48 FiO2 21.0 % 07/27/23 02:48 Machine Sweeper Brush Maker ID Rodriguez 07/27/23 02:48 Sodium 137 mmol/L (136-145) 07/30/23 03:57 Potassium 4.0 mmol/L (3.5-5.1) 07/30/23 03:57 Chloride 107 mmol/L (98-107) 07/30/23 03:57 Carbon Dioxide 20 mmol/L (22-29) L 07/30/23 03:57 Anion Gap 14.0 (5-19) 07/30/23 03:57 BUN 24 mg/dL (8-23) H 07/30/23 03:57 Creatinine 1.4 mg/dL (0.7-1.2) H 07/30/23 03:57 GFR Calculation Not Reportable 07/30/23 03:57 Glucose 98 mg/dL (65-115) 07/30/23 03:57 Estimat Average Glucose 134 07/27/23 04:21 Hemoglobin A1c 6.3 % (4.0-6.0) H 07/27/23 04:21 Calculated Osmolality 288 mOsm/kg (285-295) 07/30/23 03:57 Lactic Acid 3.5 mmol/L (0.5-2.2) H 07/27/23 00:00 Lactic Acid (Sepsis) 3.8 mmol/L (0.5-2.2) H 07/27/23 04:21 Lactate 3.8 mmol/L (0.5-2.2) H 07/27/23 07:15 Calcium 7.3 mg/dL (8.5-10.5) L 07/30/23 03:57 Phosphorus 2.3 mg/dL (2.5-4.5) L 07/30/23 03:57 Magnesium 2.1 mg/dL (1.7-2.3) 07/30/23 03:57 Iron 9 ug/dL (59-158) L 07/27/23 04:21 TIBC 217 mcg/dl 07/27/23 04:21 % Saturation 4.1 % (20-50) L 07/27/23 04:21 Unsat Iron Binding 208 ug/dL (112-347) 07/27/23 04:21 Total Bilirubin 0.5 mg/dL (0.15-1.2) 07/30/23 03:57 AST 177 U/L (0-40) H 07/30/23 03:57 ALT 72 U/L (0-41) H 07/30/23 03:57 Alkaline Phosphatase 95 U/L (40-130) 07/30/23 03:57 Troponin T Baseline 236 ng/L (0-15) H* 07/27/23 04:21 Troponin T 120 Minute 219.8 ng/L (0-15) H 07/27/23 07:15 Delta Troponin T -16.2 ABS# (0-10) L 07/27/23 07:15 Troponin T Hi Sens 6Hr 170.1 ng/L (0-15) H 07/27/23 10:36 Troponin T Hi Sens 6Hr Delta -65.9 ng/L (0-12) L 07/27/23 10:36 C-Reactive Protein 103.4 mg/L (0.0-4.9) H 07/27/23 04:21 NT-Pro-B Natriuret Pep 5638 pg/mL (0-450) H 07/27/23 04:21 Total Protein 5.0 g/dL (6.6-8.7) L 07/30/23 03:57 Albumin 3.0 g/dL (3.5-5.2) L 07/30/23 03:57 Globulin 2.0 g/dL (1.3-4.6) 07/30/23 03:57 Triglycerides 175 mg/dL (0-150) H 07/28/23 05:00 Cholesterol 96 mg/dL (0-200) 07/28/23 05:00 LDL Cholesterol, Calc 37 mg/dL (50-129) L 07/28/23 05:00 Total VLDL Cholesterol 35 mg/dL (0-30) H 07/28/23 05:00 HDL Cholesterol 24 mg/dL (60-100) L 07/28/23 05:00 Cholesterol/HDL Ratio 4.00 mg/dL (1.0-5.00) 07/28/23 05:00 Vitamin B12 287 pg/mL (232-1245) 07/27/23 04:21 Folate 4.6 ng/mL (4.5-32.2) 07/28/23 05:00 Procalcitonin 66.13 ng/mL (0-0.5) H 07/27/23 00:00 TSH 0.88 uIU/mL (0.27-4.20) 07/27/23 04:21 Urine Color Brown (Yellow) A 07/27/23 12:04 Urine Color Cancelled 07/27/23 12:04 Urine Appearance Cancelled 07/27/23 12:04 Urine Appearance Cloudy (CLEAR) A 07/27/23 12:04 Urine pH 5 (5-7) 07/27/23 12:04 Urine pH Cancelled 07/27/23 12:04 Ur Specific [place] 1.020 (1.005-1.030) 07/27/23 12:04 Ur Specific [place] Cancelled 07/27/23 12:04 Urine Protein 3+ (Negative) H 07/27/23 12:04 Urine Protein Cancelled 07/27/23 12:04 Urine Glucose (UA) Cancelled 07/27/23 12:04 Urine Glucose (UA) Norm (Normal) 07/27/23 12:04 Urine Ketones Cancelled 07/27/23 12:04 Urine Ketones Negative (Negative) 07/27/23 12:04 Urine Blood 3+ (Negative) H 07/27/23 12:04 Urine Blood Cancelled 07/27/23 12:04 Urine Nitrate Cancelled 07/27/23 12:04 Urine Nitrate Negative (Negative) 07/27/23 12:04 Urine Bilirubin 1+ (Negative) H 07/27/23 12:04 Urine Bilirubin Cancelled 07/27/23 12:04 Prot Sulfosalicylic Acd Cancelled 07/27/23 12:04 Urine Urobilinogen Cancelled 07/27/23 12:04 Urine Urobilinogen Norm mg/dL (Negative) 07/27/23 12:04 Ur Leukocyte Esterase 2+ (Negative) H 07/27/23 12:04 Ur Leukocyte Esterase Cancelled 07/27/23 12:04 Urine RBC >100 /hpf (0-2) H 07/27/23 12:04 Urine WBC 25-40 /hpf (0-5) H 07/27/23 12:04 Ur Squamous Epith Cells None /hpf (0-5) 07/27/23 12:04 Amorphous Sediment Not Reportable 07/27/23 12:04 Urine Bacteria 2+ /hpf (NONE) H 07/27/23 12:04 Coarse Granular Casts 25-40 /lpf H 07/27/23 12:04 Nasal Influ A H1 2008 PCR Not detected (NOT DETECT) 07/27/23 01:20 Urine Opiates Screen Negative ng/mL (Negative) 07/27/23 12:04 Ur Barbiturates Screen Negative ng/mL (Negative) 07/27/23 12:04 Ur Phencyclidine Scrn Negative ng/mL (Negative) 07/27/23 12:04 Ur Amphetamines Screen Negative ng/mL (Negative) 07/27/23 12:04 U Benzodiazepines Scrn Negative ng/mL (Negative) 07/27/23 12:04 Urine Cocaine Screen Negative ng/mL (Negative) 07/27/23 12:04 U Marijuana (THC) Screen Negative ng/mL (Negative) 07/27/23 12:04 Adenovirus (PCR) Not detected (NOT DETECT) 07/27/23 01:20 C. pneumoniae DNA (PCR) Not detected (NOT DETECT) 07/27/23 01:20 Coronavirus 229E (PCR) Not detected (NOT DETECT) 07/27/23 01:20 Human Metapneumovir PCR Not detected (NOT DETECT) 07/27/23 01:20 Influenza A (H1) PCR Not detected (NOT DETECT) 07/27/23 01:20 Influenza A (H3) PCR Not detected (NOT DETECT) 07/27/23 01:20 Influenza Type A (PCR) Not detected (NOT DETECT) 07/27/23 01:20 Influenza Type B (PCR) Not detected (NOT DETECT) 07/27/23 01:20 M. pneumoniae (PCR) Not detected (NOT DETECT) 07/27/23 01:20 Parainfluenza 1 (PCR) Not detected (NOT DETECT) 07/27/23 01:20 Parainfluenza 2 (PCR) Not detected (NOT DETECT) 07/27/23 01:20 Parainfluenza 3 (PCR) Not detected (NOT DETECT) 07/27/23 01:20 Parainfluenza 4 (PCR) Not detected (NOT DETECT) 07/27/23 01:20 RSV Type A (PCR) Not detected (NOT DETECT) 07/27/23 01:20 RSV Type B (PCR) Not detected (NOT DETECT) 07/27/23 01:20 Entero/Rhino (PCR) Not detected (NOT DETECT) 07/27/23 01:20 SARS-CoV-2 (PCR) Not detected (NOT DETECT) 07/27/23 01:20 MRSA (PCR) Not detected (NOT DETECTED) 07/27/23 14:10 Micro: Microbiology 07/27/23 12:04 Urine Culture - Final Urine Catheterized Escherichia coli 07/28/23 05:00 Blood Culture - Preliminary Blood NEGATIVE TO DATE 07/28/23 05:00 Blood Culture - Preliminary Blood NEGATIVE TO DATE A&P Assessment and plan (1) Elevated troponin: Possible non-ST relation CT. No significant EKG changes. Once the infection is properly treated, we may consider doing a Myocardial perfusion imaging to decide on further management. (2) Syncope and collapse: This could be multifactorial. Vasovagal reaction, hypotension, cardiac arrhythmia, etc. are considerations. Patient needs to be closely monitored on telemetry. Adequate hydration would be appropriate. Coronary ischemia causing this also is a consideration. No significant arrhythmias on the monitor so far (3) Acute kidney insufficiency: The exact etiology is not clear. The BUN/creatinine levels seems to be fairly stable at this point. May continue on the current measures. (4) Viral illness: Management as per the primary (5) Elevated brain natriuretic peptide (BNP) level: Acute diastolic heart failure is a consideration. Currently the patient is compensated. Most likely the ischemia might be the contributing factor Plan Other problems are COPD Status post prostate biopsy Consider further cardiac workup, once infection is properly treated Attestations Medical Necessity Statement*: Deferred to the primary Coding Level of Care Code 96226 Diagnoses Elevated troponin R79.89 Syncope and collapse R55 Acute kidney insufficiency N28.9 Viral illness B34.9 Elevated brain natriuretic peptide (BNP) level R79.89
[2023-07-30] MEDS: FUROsemide 10 mg/mL SDV 2mL 20 MG IVP (12:20)
--- NOTE | 2023-07-30 16:03 | PC.NURSE ---
Patient walked about 200 feet. Patients vitals were stable.
[2023-07-30 16:46] LABS: Partial Thromboplastin Time 57.7 SECONDS (23.9-36.7)
[2023-07-30] MEDS: atorvastatin 40 mg Tablet 80 MG PO (21:06)
--- NOTE | 2023-07-30 23:07 | P.PN_ITS ---
Subjective 2 Subjective: He denies chest pain, pressure, has been having some dyspnea, some difficulty catching deep breaths. Abdominal distention perhaps slightly better as noticed by family, but still persistent. He is passing flatus. Had a bowel movement. Having a lot of gas. Vitals/I&O/Wt Last Vital Signs Temp 98.3 F 07/30/23 19:45 Pulse 64 07/30/23 21:56 Resp 17 07/30/23 21:56 BP 162/90 07/30/23 19:45 Pulse Ox 95 07/30/23 21:56 O2 Del Method Room Air 07/30/23 21:56 07/30/23 07/30/23 07/31/23 14:59 22:59 06:59 Intake Total 880 / 880 540 / 1420 Output Total 1550 / 1550 1200 / 2750 Balance -670 / -670 -660 / -1330 Weight last 48 hrs Weight 116.12 kg Weight 116.403 kg Physical Exam 2 Narrative: Accompanied by family Const: COMMON NORMALS: patient oriented x3 and alert GENERAL APPEARANCE: c ooperative ORIENTATION/CONSCIOUSNESS: Yes awake HENMT: COMMON NORMALS: oropharynx normal Neck/C-Spine: COMMON NORMALS: no JVD Resp: COMMON NORMALS: normal respiratory effort and clear to auscultation bilaterally AUSCULTATION: clear to auscultation bilaterally Cardio: COMMON NORMALS: no JVD, regular rhythm, S1 normal heart sound present, S2 normal heart sound present and No murmurs present (Cardio) RHYTHM: regular rhythm HEART SOUNDS: S1 normal heart sound present and S2 normal heart sound present GI: COMMON NORMALS: Normal to inspection, nondistended, normoactive bowel sounds present, Soft to palpation and non-tender PALPATION: Yes Soft to palpation OTHER: Abdomen distended Extremity: COMMON NORMALS: no joint enlargement GENERAL: Yes edema (2-3+) Neuro: COMMON NORMALS: patient oriented x3 and moves all extremities S ENSORIUM/ORIENTATION: Yes alert Skin: COMMON NORMALS: no rashes or lesions noted GENERAL SKIN EXAM: no rashes or lesions noted Urinary Catheter Management: Antoine: Cath Placed During This Visit: no Reason for Continuing Indwelling Catheter: Accurate Measurement of Urinary Output in Critically Ill Patients Data 07/30/23 03:57 07/30/23 03:57 Micro: Microbiology 07/27/23 04:21 Blood Culture - Preliminary Blood Escherichia coli A&P Assessment and plan (1) Bacterial infection due to E. coli: (2) Sepsis: (3) Acute kidney insufficiency: (4) Dehydration: (5) Syncope and collapse: (6) D-dimer, elevated: (7) Cystitis: (8) Prostatitis: (9) Non-ST elevation [place] (NSTEMI): (10) Elevated troponin: Plan Syncope and collapse: Pending improvement in abdominal distention to be able to tolerate VQ scan, as well as be able to tolerate stress test. Continues with heparin drip with associated risks and monitoring of PTTs. Could be in setting of sepsis versus possible non-ST elevation [place] versus PE. Echocardiogram done, reviewed as below. Has been planned for VQ scan, but similarly would likely not be able to optimally participate. Continue anticoagulation as discussed with him and family. Reassess for improvement in abdominal distention, bloating, monitor oxygenation. Consider obtaining VQ scan. Monitor blood pressures. Keep mean artery pressure over 65. Discussed with case management. Abdominal distention: Mild improvement today, although still some persistence of symptoms. Has not had any vomiting, no abdominal pain. Abdomen is nontender on exam. He is noted to have significant lower extremity edema. His fluids have been discontinued, discussed with him giving a dose of IV Lasix. Administered 20 mg IV x 1. Monitor I&O. May be having some kind edema, possibly contributing to indigestion. Discussed adding simethicone drops. Added. Diet changed to lactose-free yesterday. He has walked, encouraged additional ambulation. In case of more concerning symptoms, worsening or protracted lack of improvement, consider repeat imaging with CT. Reviewed CT from 07/27. Discussed with correctional case manager. Elevated troponin/non-ST elevation [place]: Reviewed cardiology note from today. Proceeding with assessment with stress testing. For now this is held off. Continue monitoring on telemetry and for symptoms changes. Echocardiogram reviewed, noted normal ejection fraction, no RWMA. Grade 1 diastolic dysfunction. Continues on heparin drip. Monitor PTT. At risk of bleeding. Reassess CBC. Continue with aspirin, statin, Plavix. With NSTEMI, MARY CARMEN on CKD, advanced age, possible PE, at elevated risk of complication, mortality. Monitor on CSU on telemetry. Elevated D-dimer: Along with elevated proBNP. Pending VQ scan. Given syncope and collapse with mild subjective fever shortness of breath and hypoxia and hypercapnia on admission cannot rule out PE. Lower limb Doppler negative for DVT. Patient already on heparin drip. CTA cannot be done because of MARY CARMEN. Ventilation/perfusion scan ordered. MARY CARMEN: Noted with some improvements in BUN, creatinine. Stop IVF. Monitor BMP daily. No electrolyte or metabolic acidosis. E. coli bacteremia: Repeat blood cultures sent on 07/28. Complicated UTI. Resolved sepsis: Continue ceftriaxone. Most likely in setting of cystitis versus prostatitis. He is not having symptoms of prostatitis, however, is freshly after prostate biopsy. There are signs of cystitis although unclear that cystitis should lead to bacteremia. Certainly a complicated urinary tract infection. Reviewed urine culture, blood culture. Follow-up. Repeat CBC. Leukocytosis reviewed, noted improving. Iron deficiency anemia: iron supplementation. Monitor hemoglobin daily for now. Pulmicort and DuoNeb every 6 hours. CODE STATUS: Discussed in detail with patient. Patient's and daughter will be the DPOA. Full code. But does not want to remain on mechanical ventilator for a long time. Renal nondialysis Heparin drip will suffice as DVT prophylaxis Protonix for PUD prophylaxis. Attestations 2 Medical Necessity Statement*: Continue admission for assessment and management after syncope, collapse, NSTEMI, assessment for PE, anticoagulation, complicated UTI after recent prostate biopsy. and High MDM includes amount and/or complexity of data reviewed/ordered [ previous or external records, resulted lab(s)/test(s), ordered lab(s)/test(s), independent historian and other healthcare professional discussion] as documented Diagnoses Bacterial infection due to E. coli A49.8 Sepsis A41.9 Acute kidney insufficiency N28.9 Dehydration E86.0 Syncope and collapse R55 D-dimer, elevated R79.89 Cystitis N30.90 Prostatitis N41.9 Non-ST elevation [place] (NSTEMI) I21.4 Elevated troponin R79.89
[2023-07-31] VITALS (25 sets, daily range): BP systolic 145–181; BP diastolic 80–97; PULSE 67–94; RESP 16–27; TEMP 36.7–36.9; O2SAT 90–98; BMI 34.7
[2023-07-31 04:09] LABS: Basophils # 0.1 10^3/uL (0.0-0.1); Basophils % 0.5 %; Eosinophils # 0.2 10^3/uL (0.0-0.8); Eosinophils % 2.4 %; Hematocrit 37.3 % (37-53); Lymphocytes # 1.4 10^3/uL (0.8-4.8); Lymphocytes % 14.4 %; Mean Corpuscular HGB Conc 32.7 g/dL (30-55); Mean Corpuscular Hemoglobin 29.3 pg (27-33); Mean Corpuscular Volume 89.7 fl (82-101); Mean Platelet Volume 10.8 fL (7.4-10.4); Monocytes # 1.3 10^3/uL (0.2-0.9); Monocytes % 13.1 %; Neutrophils # 6.42 10^3/uL (1.8-7.7); Neutrophils % 66.5 %; Nucleated Red Blood Cells % 0 %; Platelet Count 145 10^3/cmm (157-399); Red Blood Count 4.16 10^6/uL (3.85-5.65); Red Cell Distribution Width 14.6 % (12.1-15.1); White Blood Count 9.65 10^3/uL (3.29-11.43)
[2023-07-31 04:23] LABS: Partial Thromboplastin Time 64.8 SECONDS (23.9-36.7)
[2023-07-31 04:31] LABS: Alanine Aminotransferase 64 U/L (0-41); Albumin Level 2.7 g/dL (3.5-5.2); Alkaline Phosphatase 95 U/L (40-130); Anion Gap 10.4 (5-19); Aspartate Amino Transferase 128 U/L (0-40); Blood Urea Nitrogen 23 mg/dL (8-23); Calcium 7.8 mg/dL (8.5-10.5); Carbon Dioxide 23 mmol/L (22-29); Chloride 106 mmol/L (98-107); Glucose 145 mg/dL (65-115); Osmolality Calculated 288 mOsm/kg (285-295); Potassium 3.4 mmol/L (3.5-5.1); Sodium 136 mmol/L (136-145); Total Bilirubin 0.5 mg/dL (0.15-1.2); Total Protein 5.7 g/dL (6.6-8.7)
--- NOTE | 2023-07-31 05:56 | PC.NURSE ---
Patient complaining of swelling and pain around mouth. Area around mouth is red and raw. Inside of mouth, and tongue, covered in white patches. Hospitalist notified, no new orders at this time.
--- NOTE | 2023-07-31 08:55 | P.PN_ITS ---
Subjective 2 Subjective: Patient is feeling better. No chest pain or shortness of breath. Vitals are stable. Still has some abdominal discomfort. He has been ambulating on telemetry. Medications: Medication Review Details: Current Medications Acetaminophen (Acetaminophen 500 Mg Tablet) 500 mg PO Q4H PRN PRN Reason: fever Last Admin: 07/30/23 21:06 Dose: 500 mg Albuterol/Ipratropium (Ipratropium-Albuterol 3 Ml Neb) 3 ml INHALATION Q6H PRN PRN Reason: SHORTNESS OF BREATH Last Admin: 07/27/23 11:55 Dose: 3 ml Aspirin (Aspirin 81 Mg Ec Tablet) 81 mg PO DAILY SANDEE Last Admin: 07/30/23 08:10 Dose: 81 mg Atorvastatin Calcium (Atorvastatin 40 Mg Tablet) 80 mg PO BEDTIME SANDEE Last Admin: 07/30/23 21:06 Dose: 80 mg Budesonide (Budesonide 0.5 Mg/2 Ml Neb) 0.5 mg INHALATION BID.RESPIRATORY PRN PRN Reason: SHORTNESS OF BREATH Clopidogrel Bisulfate (Clopidogrel 75 Mg Tablet) 75 mg PO DAILY SANDEE Last Admin: 07/30/23 08:10 Dose: 75 mg Heparin Sodium (Porcine) (Heparin 5,000 Unit/Ml Inj 1 Ml) 0 unit IV PRN PRN; Protocol PRN Reason: Heparin weight-base protocol Last Admin: 07/29/23 03:01 Dose: 2,200 unit Sodium Chloride (Sodium Chloride 0.9%) 1,000 mls @ 100 mls/hr IV .Q10H SANDEE Last Admin: 07/29/23 21:09 Dose: 100 mls/hr Heparin Sodium/Sodium Chloride (Heparin Drip) 25,000 unit in 500 mls @ 0 mls/hr IV .Q0M SANDEE; Protocol Last Admin: 07/30/23 23:26 Dose: 14.46 unit/kg/hr, 32 mls/hr Ceftriaxone Sodium 1,000 mg/ (Sodium Chloride) 50 mls @ 100 mls/hr IV Q24H SANDEE; Protocol Last Titration: 07/31/23 00:07 Dose: 0 mls/hr Lanolin (Lanolin Oint 7 Gm) 1 applic TOPICAL PRN PRN PRN Reason: DRYNESS Last Admin: 07/29/23 13:55 Dose: 1 applic Ondansetron HCl (Ondansetron 2 Mg/Ml Sdv 2 Ml) 4 mg IVP Q6H PRN PRN Reason: NAUSEA AND VOMITING Pantoprazole Sodium (Pantoprazole 40 Mg Sdv) 40 mg IVP DAILY SANDEE Last Admin: 07/30/23 08:11 Dose: 40 mg Simethicone (Simethicone 40 Mg/0.6 Ml Bottle 30ml) 40 mg PO BID PRN PRN Reason: FLATULENCE Vitals/I&O/Wt Last Vital Signs Temp 98.1 F 07/31/23 07:51 Pulse 67 07/31/23 07:51 Resp 20 H 07/31/23 07:51 BP 155/97 07/31/23 07:51 Pulse Ox 95 07/31/23 07:51 O2 Del Method Room Air 07/31/23 07:51 07/30/23 07/31/23 07/31/23 22:59 06:59 14:59 Intake Total 540 / 1420 550 / 1970 Output Total 1200 / 2750 Balance -660 / -1330 550 / -780 Weight last 48 hrs Weight 256 lb Weight 256 lb Weight 256 lb 10 oz Physical Exam 2 Narrative: GENERAL: The patient is alert and oriented times three. Not in any acute distress. HEENT: No significant pallor, icterus or lymphadenopathy.Oral cavity: There are no mucous membrane lesions. Superficial ecchymotic areas on the face NECK: Trachea appears to be central. No masses noted. No JVD or thyromegaly appreciated. RESPIRATORY: Chest is symmetrical. No intercostals muscle retraction or any accessory muscle activation. There is no chest wall tenderness. Breath sounds are heard bilaterally. No rales or rhonchi heard. No evidence of any consolidation. BREASTS: Deferred. HEART: The heart sounds are normal. No S3 or S4. No significant murmurs. No pericardial rub ABDOMEN: The abdomen has some distention but seems to be much less. Vague tenderness in the epigastric area. Bowel sounds are normally heard. : Deferred. RECTAL: Deferred. LYMPHATIC: No lymphadenopathy noted in the neck. EXTREMITIES: No edema or cyanosis. No clubbing. MUSCULOSKELETAL: No acute joint deformities or swelling SKIN: There are no significant rashes or ecchymosis NEUROPSYCHIATRIC: The patient is alert and oriented x3. Appears to be in a good mood. No tremors or rigidity noted. Urinary Catheter Management: Antoine: Cath Placed During This Visit: no Reason for Continuing Indwelling Catheter: Accurate Measurement of Urinary Output in Critically Ill Patients Data 07/31/23 03:48 07/31/23 03:48 Other Labs: Laboratory Last Values WBC 9.65 10^3/uL (3.29-11.43) 07/31/23 03:48 RBC 4.16 10^6/uL (3.85-5.65) 07/31/23 03:48 Hgb 12.20 g/dL (11.27-16.99) 07/31/23 03:48 Hct 37.3 % (37-53) 07/31/23 03:48 MCV 89.7 fl (82-101) 07/31/23 03:48 MCH 29.3 pg (27-33) 07/31/23 03:48 MCHC 32.7 g/dL (30-55) 07/31/23 03:48 RDW 14.6 % (12.1-15.1) 07/31/23 03:48 Plt Count 145 10^3/cmm (157-399) L 07/31/23 03:48 MPV 10.8 fL (7.4-10.4) H 07/31/23 03:48 Neut % (Auto) 66.5 % 07/31/23 03:48 Lymph % (Auto) 14.4 % 07/31/23 03:48 [place] % (Auto) 13.1 % 07/31/23 03:48 Eos % (Auto) 2.4 % 07/31/23 03:48 Baso % (Auto) 0.5 % 07/31/23 03:48 Neut # (Auto) 6.42 10^3/uL (1.8-7.7) 07/31/23 03:48 Lymph # (Auto) 1.4 10^3/uL (0.8-4.8) 07/31/23 03:48 [place] # (Auto) 1.3 10^3/uL (0.2-0.9) H 07/31/23 03:48 Eos # (Auto) 0.2 10^3/uL (0.0-0.8) 07/31/23 03:48 Baso # (Auto) 0.1 10^3/uL (0.0-0.1) 07/31/23 03:48 Nucleated RBC % (auto) 0 % 07/31/23 03:48 Nucleated RBCs # 0.0 /100WBC 07/31/23 03:48 PT 15.30 SECONDS (12.1-14.9) H 07/26/23 20:42 INR 1.17 (0.8-1.2) 07/26/23 20:42 APTT 64.8 SECONDS (23.9-36.7) H 07/31/23 03:48 D-Dimer 18.51 ug/mLFEU (0-0.59) H 07/27/23 00:00 Specimen Type Arterial 07/27/23 02:48 Sample Site Radial, left 07/27/23 02:48 ABG pH 7.43 (7.35-7.45) 07/27/23 02:48 ABG pCO2 33.2 mmHg (35-45) L 07/27/23 02:48 ABG pO2 64.1 mmHg (80.0-100.0) L 07/27/23 02:48 ABG PO2/FiO2 Ratio 0 07/27/23 02:48 ABG HCO3 22.1 mmol/L (22-26) 07/27/23 02:48 ABG Base Excess -1.5 mmol/L (-2.0-2.0) 07/27/23 02:48 Ortiz Test Pos 07/27/23 02:48 Hematocrit 44.4 % (42-52) 07/27/23 02:48 O2 Delivery Device Nc 07/27/23 02:48 FiO2 21.0 % 07/27/23 02:48 Passport Support Manager ID Rodriguez 07/27/23 02:48 Sodium 136 mmol/L (136-145) 07/31/23 03:48 Potassium 3.4 mmol/L (3.5-5.1) L 07/31/23 03:48 Chloride 106 mmol/L (98-107) 07/31/23 03:48 Carbon Dioxide 23 mmol/L (22-29) 07/31/23 03:48 Anion Gap 10.4 (5-19) 07/31/23 03:48 BUN 23 mg/dL (8-23) 07/31/23 03:48 Creatinine 1.4 mg/dL (0.7-1.2) H 07/31/23 03:48 GFR Calculation Not Reportable 07/31/23 03:48 Glucose 145 mg/dL (65-115) H 07/31/23 03:48 Estimat Average Glucose 134 07/27/23 04:21 Hemoglobin A1c 6.3 % (4.0-6.0) H 07/27/23 04:21 Calculated Osmolality 288 mOsm/kg (285-295) 07/31/23 03:48 Lactic Acid 3.5 mmol/L (0.5-2.2) H 07/27/23 00:00 Lactic Acid (Sepsis) 3.8 mmol/L (0.5-2.2) H 07/27/23 04:21 Lactate 3.8 mmol/L (0.5-2.2) H 07/27/23 07:15 Calcium 7.8 mg/dL (8.5-10.5) L 07/31/23 03:48 Phosphorus 2.3 mg/dL (2.5-4.5) L 07/30/23 03:57 Magnesium 2.1 mg/dL (1.7-2.3) 07/30/23 03:57 Iron 9 ug/dL (59-158) L 07/27/23 04:21 TIBC 217 mcg/dl 07/27/23 04:21 % Saturation 4.1 % (20-50) L 07/27/23 04:21 Unsat Iron Binding 208 ug/dL (112-347) 07/27/23 04:21 Total Bilirubin 0.5 mg/dL (0.15-1.2) 07/31/23 03:48 AST 128 U/L (0-40) H 07/31/23 03:48 ALT 64 U/L (0-41) H 07/31/23 03:48 Alkaline Phosphatase 95 U/L (40-130) 07/31/23 03:48 Troponin T Baseline 236 ng/L (0-15) H* 07/27/23 04:21 Troponin T 120 Minute 219.8 ng/L (0-15) H 07/27/23 07:15 Delta Troponin T -16.2 ABS# (0-10) L 07/27/23 07:15 Troponin T Hi Sens 6Hr 170.1 ng/L (0-15) H 07/27/23 10:36 Troponin T Hi Sens 6Hr Delta -65.9 ng/L (0-12) L 07/27/23 10:36 C-Reactive Protein 103.4 mg/L (0.0-4.9) H 07/27/23 04:21 NT-Pro-B Natriuret Pep 5638 pg/mL (0-450) H 07/27/23 04:21 Total Protein 5.7 g/dL (6.6-8.7) L 07/31/23 03:48 Albumin 2.7 g/dL (3.5-5.2) L 07/31/23 03:48 Globulin 3.0 g/dL (1.3-4.6) 07/31/23 03:48 Triglycerides 175 mg/dL (0-150) H 07/28/23 05:00 Cholesterol 96 mg/dL (0-200) 07/28/23 05:00 LDL Cholesterol, Calc 37 mg/dL (50-129) L 07/28/23 05:00 Total VLDL Cholesterol 35 mg/dL (0-30) H 07/28/23 05:00 HDL Cholesterol 24 mg/dL (60-100) L 07/28/23 05:00 Cholesterol/HDL Ratio 4.00 mg/dL (1.0-5.00) 07/28/23 05:00 Vitamin B12 287 pg/mL (232-1245) 07/27/23 04:21 Folate 4.6 ng/mL (4.5-32.2) 07/28/23 05:00 Procalcitonin 66.13 ng/mL (0-0.5) H 07/27/23 00:00 TSH 0.88 uIU/mL (0.27-4.20) 07/27/23 04:21 Urine Color Brown (Yellow) A 07/27/23 12:04 Urine Color Cancelled 07/27/23 12:04 Urine Appearance Cancelled 07/27/23 12:04 Urine Appearance Cloudy (CLEAR) A 07/27/23 12:04 Urine pH 5 (5-7) 07/27/23 12:04 Urine pH Cancelled 07/27/23 12:04 Ur Specific [place] 1.020 (1.005-1.030) 07/27/23 12:04 Ur Specific [place] Cancelled 07/27/23 12:04 Urine Protein 3+ (Negative) H 07/27/23 12:04 Urine Protein Cancelled 07/27/23 12:04 Urine Glucose (UA) Cancelled 07/27/23 12:04 Urine Glucose (UA) Norm (Normal) 07/27/23 12:04 Urine Ketones Cancelled 07/27/23 12:04 Urine Ketones Negative (Negative) 07/27/23 12:04 Urine Blood 3+ (Negative) H 07/27/23 12:04 Urine Blood Cancelled 07/27/23 12:04 Urine Nitrate Cancelled 07/27/23 12:04 Urine Nitrate Negative (Negative) 07/27/23 12:04 Urine Bilirubin 1+ (Negative) H 07/27/23 12:04 Urine Bilirubin Cancelled 07/27/23 12:04 Prot Sulfosalicylic Acd Cancelled 07/27/23 12:04 Urine Urobilinogen Cancelled 07/27/23 12:04 Urine Urobilinogen Norm mg/dL (Negative) 07/27/23 12:04 Ur Leukocyte Esterase 2+ (Negative) H 07/27/23 12:04 Ur Leukocyte Esterase Cancelled 07/27/23 12:04 Urine RBC >100 /hpf (0-2) H 07/27/23 12:04 Urine WBC 25-40 /hpf (0-5) H 07/27/23 12:04 Ur Squamous Epith Cells None /hpf (0-5) 07/27/23 12:04 Amorphous Sediment Not Reportable 07/27/23 12:04 Urine Bacteria 2+ /hpf (NONE) H 07/27/23 12:04 Coarse Granular Casts 25-40 /lpf H 07/27/23 12:04 Nasal Influ A H1 2008 PCR Not detected (NOT DETECT) 07/27/23 01:20 Urine Opiates Screen Negative ng/mL (Negative) 07/27/23 12:04 Ur Barbiturates Screen Negative ng/mL (Negative) 07/27/23 12:04 Ur Phencyclidine Scrn Negative ng/mL (Negative) 07/27/23 12:04 Ur Amphetamines Screen Negative ng/mL (Negative) 07/27/23 12:04 U Benzodiazepines Scrn Negative ng/mL (Negative) 07/27/23 12:04 Urine Cocaine Screen Negative ng/mL (Negative) 07/27/23 12:04 U Marijuana (THC) Screen Negative ng/mL (Negative) 07/27/23 12:04 Adenovirus (PCR) Not detected (NOT DETECT) 07/27/23 01:20 C. pneumoniae DNA (PCR) Not detected (NOT DETECT) 07/27/23 01:20 C. difficile Tox (PCR) Cancelled 07/27/23 20:36 Coronavirus 229E (PCR) Not detected (NOT DETECT) 07/27/23 01:20 Human Metapneumovir PCR Not detected (NOT DETECT) 07/27/23 01:20 Influenza A (H1) PCR Not detected (NOT DETECT) 07/27/23 01:20 Influenza A (H3) PCR Not detected (NOT DETECT) 07/27/23 01:20 Influenza Type A (PCR) Not detected (NOT DETECT) 07/27/23 01:20 Influenza Type B (PCR) Not detected (NOT DETECT) 07/27/23 01:20 M. pneumoniae (PCR) Not detected (NOT DETECT) 07/27/23 01:20 Parainfluenza 1 (PCR) Not detected (NOT DETECT) 07/27/23 01:20 Parainfluenza 2 (PCR) Not detected (NOT DETECT) 07/27/23 01:20 Parainfluenza 3 (PCR) Not detected (NOT DETECT) 07/27/23 01:20 Parainfluenza 4 (PCR) Not detected (NOT DETECT) 07/27/23 01:20 RSV Type A (PCR) Not detected (NOT DETECT) 07/27/23 01:20 RSV Type B (PCR) Not detected (NOT DETECT) 07/27/23 01:20 Entero/Rhino (PCR) Not detected (NOT DETECT) 07/27/23 01:20 SARS-CoV-2 (PCR) Not detected (NOT DETECT) 07/27/23 01:20 MRSA (PCR) Not detected (NOT DETECTED) 07/27/23 14:10 Micro: Microbiology 07/27/23 04:21 Blood Culture - Preliminary Blood Escherichia coli A&P Assessment and plan (1) Elevated troponin: Discussed about doing the Myocardial perfusion imaging. The patient and the family are agreeable. I may go ahead and schedule the test for tomorrow. Based on the results, further management decisions will be made. (2) Syncope and collapse: This could be multifactorial. Vasovagal reaction, hypotension, cardiac arrhythmia, etc. are considerations. Patient needs to be closely monitored on telemetry. Adequate hydration would be appropriate. Coronary ischemia causing this also is a consideration. No significant arrhythmias on the monitor so far (3) Acute kidney insufficiency: The exact etiology is not clear. The BUN/creatinine levels seems to be fairly stable at this point. May continue on the current measures. (4) Elevated brain natriuretic peptide (BNP) level: Acute diastolic heart failure is a consideration. Currently the patient is compensated. Most likely the ischemia might be the contributing factor (5) Bacterial infection due to E. coli: Patient is responding to the antibiotic. The white cell count is back to normal. Management as per the primary Plan Other problems are COPD Status post prostate biopsy Consider further cardiac workup, once infection is properly treated Attestations 2 Medical Necessity Statement*: Deferred to the primary Coding Level of Care Code 21359 Diagnoses Elevated troponin R79.89 Syncope and collapse R55 Acute kidney insufficiency N28.9 Elevated brain natriuretic peptide (BNP) level R79.89 Bacterial infection due to E. coli A49.8
[2023-07-31] MEDS: nystatin 100,000 unit/mL UDC 5 mL 400000 UNIT PO ×4 (09:15→21:22)
[2023-07-31] MEDS: aspirin 81 mg EC Tablet PO (09:17)
[2023-07-31] MEDS: pantoprazole 40 mg SDV IVP (09:17)
[2023-07-31] MEDS: clopidogrel 75 mg Tablet PO (09:17)
--- NOTE | 2023-07-31 10:54 | CTR_ITS ---
PROCEDURE INFORMATION: Exam: CT Abdomen And Pelvis Without Contrast Exam date and time: 07/31/2023 3:18 PM Age: 88 years old Clinical indication: Other: Abdominal distention; Prior surgery; Surgery date: 6+ months; Surgery type: Gb TECHNIQUE: Imaging protocol: Computed tomography of the abdomen and pelvis without contrast. Radiation optimization: All CT scans at this facility use at least one of these dose optimization techniques: automated exposure control; mA and/or kV adjustment per patient size (includes targeted exams where dose is matched to clinical indication); or iterative reconstruction. REPORTING DATA: Count of CT and Cardiac NM exams in prior 12 months: This patient has received 2 known CTs and 0 known cardiac nuclear medicine studies in the 12 months prior to the current study. COMPARISON: [place] [id number] 07/27/2023 1:40 AM RADIATION DOSE METRICS: Total DLP (mGy-cm): 1211 FINDINGS: Lungs: Visualized lung bases are free of significant pathology. Pleural spaces: Tiny pleural effusions. Coronary arteries: Coronary artery calcifications. Diaphragm: Small hiatal hernia. Liver: Fatty change of the liver. Gallbladder and bile ducts: Prior cholecystectomy. No biliary dilatation. Pancreas: No significant pancreatic pathology. Spleen: No significant splenic pathology. Adrenal glands: No significant adrenal pathology. Kidneys and ureters: No significant renal pathology. 1.4 cm right lower pole renal cortical cyst Stomach and bowel: Colonic diverticulosis without evidence of acute inflammatory change. Appendix: Appendix within normal limits. Intraperitoneal space: No ascites. Vasculature: No abdominal aortic aneurysm. Lymph nodes: No lymphadenopathy. Urinary bladder: Urinary bladder is nondistended limiting assessment of the wall. Reproductive: Moderate prostatomegaly. Bones/joints: Mild degenerative change present in the spine. Soft tissues: Small fat containing umbilical hernia. Moderate bilateral fat containing inguinal hernias. CT/CT abdomen pelvis wo con [id number] IMPRESSION: No acute pathology. Minor findings described above. COMMENTS: Consistent with the [employer]'s Incidental Findings Committee white paper (J Am Hector Radiol 2018): Any incidental renal lesion less than 1 cm or classified as too small to characterize, or any incidental cystic renal lesion characterized as simple-appearing, is likely benign. No follow-up imaging is recommended for these lesions per consensus recommendations based on imaging criteria.
--- NOTE | 2023-07-31 10:55 | P.PN_ITS ---
Subjective 2 Subjective: Abdomen still distended. He is ambulating a little bit better. Developed painful, burning redness, cracking, swelling of the tongue and lips.Had a bowel movement. Passing flatus. Also belching. Vitals/I&O/Wt Last Vital Signs Temp 98.1 F 07/31/23 07:51 Pulse 67 07/31/23 07:51 Resp 20 H 07/31/23 07:51 BP 155/97 07/31/23 07:51 Pulse Ox 95 07/31/23 07:51 O2 Del Method Room Air 07/31/23 09:58 07/30/23 07/31/23 07/31/23 22:59 06:59 14:59 Intake Total 540 / 1420 550 / 1970 240 / 240 Output Total 1200 / 2750 Balance -660 / -1330 550 / -780 240 / 240 Weight last 48 hrs Weight 116.12 kg Weight 116.12 kg Physical Exam 2 Narrative: Accompanied by family Const: COMMON NORMALS: patient oriented x3 and alert GENERAL APPEARANCE: c ooperative ORIENTATION/CONSCIOUSNESS: Yes awake HENMT: COMMON NORMALS: oropharynx normal Neck/C-Spine: COMMON NORMALS: no JVD Resp: COMMON NORMALS: normal respiratory effort and clear to auscultation bilaterally AUSCULTATION: clear to auscultation bilaterally Cardio: COMMON NORMALS: no JVD, regular rhythm, S1 normal heart sound present, S2 normal heart sound present and No murmurs present (Cardio) RHYTHM: regular rhythm HEART SOUNDS: S1 normal heart sound present and S2 normal heart sound present GI: COMMON NORMALS: Normal to inspection, nondistended, normoactive bowel sounds present, Soft to palpation and non-tender PALPATION: Yes Soft to palpation OTHER: Abdomen distended Extremity: COMMON NORMALS: no joint enlargement and no pedal edema GENERAL: Yes edema (2-3+) Neuro: COMMON NORMALS: patient oriented x3 and moves all extremities S ENSORIUM/ORIENTATION: Yes alert Skin: COMMON NORMALS: no rashes or lesions noted GENERAL SKIN EXAM: no rashes or lesions noted Urinary Catheter Management: Antoine: Cath Placed During This Visit: no Reason for Continuing Indwelling Catheter: Accurate Measurement of Urinary Output in Critically Ill Patients Data 07/31/23 03:48 07/31/23 03:48 Micro: Microbiology 07/27/23 04:21 Blood Culture - Preliminary Blood Escherichia coli A&P Assessment and plan (1) Bacterial infection due to E. coli: (2) Sepsis: (3) Acute kidney insufficiency: (4) Dehydration: (5) Syncope and collapse: (6) D-dimer, elevated: (7) Cystitis: (8) Prostatitis: (9) Non-ST elevation DE (NSTEMI): (10) Elevated troponin: Plan Abdominal distention: Persistent abdominal distention, less likely obstruction as he is having bowel movements, passing flatus, but he is also having eructation, persistent distention. Discussed with him and family will obtain CT scan abdomen pelvis to follow-up for any additional signs of partial obstruction, ascites, etc.Reviewed CBC, without leukocytosis. Afebrile on vitals. Lower extremity mostly better but still persistent. Repeat Lasix today. Continue lactose-free diet. Simethicone drops. Ambulation. Discussed with showcase maker During rounds. Syncope and collapse: Reviewed cardiology documentation. Pending improvement in abdominal distention for additional assessment with stress testing. Additionally similarly to allow for VQ scan. Continues with heparin drip with associated risks and monitoring of PTTs. Could be in setting of sepsis versus possible non-ST elevation DE versus PE. Echocardiogram as below. Monitor blood pressures. Keep mean artery pressure over 65. Elevated troponin/non-ST elevation DE: Reviewed cardiology note. Reviewed PTT. Continues on heparin drip. Pending improvement in abdominal distention to be able to tolerate stress test. Continue monitoring on telemetry and for symptoms changes. Echocardiogram w normal ejection fraction, no RWMA. Grade 1 diastolic dysfunction. Continues on heparin drip. Monitor PTT. At risk of bleeding. Reassess CBC. Continue with aspirin, statin, Plavix. With NSTEMI, MARY CARMEN on CKD, advanced age, possible PE, at elevated risk of complication, mortality. Monitor on CSU on telemetry. Elevated D-dimer: Along with elevated proBNP. Pending VQ scan. Given syncope and collapse with mild subjective fever shortness of breath and hypoxia and hypercapnia on admission cannot rule out PE. Lower limb Doppler negative for DVT. Patient already on heparin drip. CTA cannot be done because of MARY CARMEN. Ventilation/perfusion scan ordered. MARY CARMEN: Noted with some improvements in BUN, creatinine. Stop IVF. Monitor BMP daily. No electrolyte or metabolic acidosis. E. coli bacteremia: Repeat blood cultures sent on 07/28. Complicated UTI. Resolved sepsis: Continue ceftriaxone. Most likely in setting of cystitis versus prostatitis. He is not having symptoms of prostatitis, however, is freshly after prostate biopsy. There are signs of cystitis although unclear that cystitis should lead to bacteremia. Certainly a complicated urinary tract infection. Reviewed urine culture, blood culture. Follow-up. Repeat CBC. Leukocytosis reviewed, noted improving. Hypertension: Add hydralazine. Iron deficiency anemia: iron supplementation. Monitor hemoglobin daily for now. Pulmicort and DuoNeb every 6 hours. CODE STATUS: Discussed in detail with patient. Patient's and daughter will be the DPOA. Full code. But does not want to remain on mechanical ventilator for a long time. Renal nondialysis Heparin drip will suffice as DVT prophylaxis Protonix for PUD prophylaxis. Attestations 2 Medical Necessity Statement*: Continue admission for assessment and management after syncope, collapse, NSTEMI, assessment for PE, anticoagulation, complicated UTI after recent prostate biopsy. Diagnoses Bacterial infection due to E. coli A49.8 Sepsis A41.9 Acute kidney insufficiency N28.9 Dehydration E86.0 Syncope and collapse R55 D-dimer, elevated R79.89 Cystitis N30.90 Prostatitis N41.9 Non-ST elevation DE (NSTEMI) I21.4 Elevated troponin R79.89
[2023-07-31] MEDS: simethicone 40 mg/0.6 mL Bottle 30mL PO (11:29)
[2023-07-31] MEDS: FUROsemide 10 mg/mL SDV 2mL 20 MG IVP (11:30)
[2023-07-31] MEDS: hyDRALAzine 25 mg Tablet PO ×2 (15:02→21:22)
[2023-07-31] MEDS: heparin drip 25,000 UNIT/500 ML PREMIX 32 UNIT IV (15:40)
[2023-07-31] MEDS: acetaminophen 500 mg Tablet PO ×2 (17:56→22:17)
[2023-07-31] MEDS: atorvastatin 40 mg Tablet 80 MG PO (21:22)
[2023-08-01] VITALS (11 sets, daily range): BP systolic 156–173; BP diastolic 78–93; PULSE 71–104; RESP 16–24; TEMP 36.4–37.1; O2SAT 95–97
[2023-08-01] MEDS: cefTRIAXone 1,000 MG in sodium chloride 0.9% (plus) 50 ML 100 MG IV ×2 (00:37→23:54)
[2023-08-01] MEDS: acetaminophen 500 mg Tablet PO ×2 (02:28→08:21)
[2023-08-01 04:02] LABS: Basophils # 0.1 10^3/uL (0.0-0.1); Basophils % 0.6 %; Eosinophils # 0.3 10^3/uL (0.0-0.8); Eosinophils % 3.1 %; Hematocrit 36.3 % (37-53); Lymphocytes # 1.4 10^3/uL (0.8-4.8); Lymphocytes % 15.9 %; Mean Corpuscular HGB Conc 34.2 g/dL (30-55); Mean Corpuscular Hemoglobin 29.6 pg (27-33); Mean Corpuscular Volume 86.6 fl (82-101); Mean Platelet Volume 10.4 fL (7.4-10.4); Monocytes # 1.4 10^3/uL (0.2-0.9); Neutrophils # 5.46 10^3/uL (1.8-7.7); Neutrophils % 60.6 %; Nucleated Red Blood Cells % 0 %; Platelet Count 158 10^3/cmm (157-399); Red Blood Count 4.19 10^6/uL (3.85-5.65)
[2023-08-01 04:15] LABS: Partial Thromboplastin Time 59.8 SECONDS (23.9-36.7)
[2023-08-01 04:21] LABS: Alanine Aminotransferase 68 U/L (0-41); Alkaline Phosphatase 81 U/L (40-130); Anion Gap 14.4 (5-19); Aspartate Amino Transferase 107 U/L (0-40); Blood Urea Nitrogen 19 mg/dL (8-23); Calcium 8.3 mg/dL (8.5-10.5); Carbon Dioxide 23 mmol/L (22-29); Chloride 103 mmol/L (98-107); Globulin 2.8 g/dL (1.3-4.6); Glucose 106 mg/dL (65-115); Osmolality Calculated 287 mOsm/kg (285-295); Potassium 3.4 mmol/L (3.5-5.1); Sodium 137 mmol/L (136-145); Total Bilirubin 0.6 mg/dL (0.15-1.2); Total Protein 5.8 g/dL (6.6-8.7)
[2023-08-01] MEDS: morphine 4 mg/mL SDV 1 mL 2 MG IVP (04:38)
--- NOTE | 2023-08-01 05:04 | PC.NURSE ---
Patient complaining of pain in left hip. Requested to ambulate in hallway to try to alleviate pain. Pain still present, patient positioned in chair with pillows under hip, given PRN Tylenol. All attempts to relieve pain were unsuccessful. Hospitalist notified, given on time dose of Morphine 2mg IVP.
--- NOTE | 2023-08-01 05:32 | PC.NURSE ---
Patients daughter has concerns about amount of blood in jackman and bowel movements, patient experiencing severe pain in left hip/groin area. All attempts to relieve pain have been unsuccessful. Hospitalist notified about concerns. Given orders to turn off IV Heparin, Tramadol 25 PO ONCE.
[2023-08-01] MEDS: TRAMadol 50 mg Tablet 25 MG PO (05:51)
[2023-08-01] MEDS: nystatin 100,000 unit/mL UDC 5 mL 400000 UNIT PO ×4 (08:20→23:06)
[2023-08-01] MEDS: hyDRALAzine 25 mg Tablet PO ×2 (08:21→15:30)
[2023-08-01] MEDS: aspirin 81 mg EC Tablet PO (08:21)
[2023-08-01] MEDS: clopidogrel 75 mg Tablet PO (08:21)
[2023-08-01] MEDS: morphine 4 mg/mL SDV 1 mL IVP ×2 (09:22→19:14)
--- NOTE | 2023-08-01 10:13 | MR_ITS ---
WS: [id number] MRI LEFT HIP WITH AND WITHOUT CONTRAST. COMPARISON: CT 07/31/2023 pelvis Multiplanar, multisequence imaging is performed with and without contrast. MultiHance 20 mL IV. History: Fever with nausea and diarrhea. Abdominal distention. Markedly abnormal appearance to the soft tissues including the muscles of the pelvis, greatest involv ing the muscles surrounding the LEFT hip. There is abnormal T2 and STIR signal throughout the muscle groups, predominantly the anterior and medial compartments. There is a more focal fluid collection in the soft tissues of the LEFT hip just medial to the proximal femur. This is centered in the adductor group measuring at least 8.6 x 3.4 cm. On some sequences it does appear to be a fluid/fluid level an d there is incomplete contiguous enhancement on the postcontrast sequences. The entire collection has not been included. The extent of the myositis and muscle edema is extends into the mid thigh. The en tire abnormality is not included on this MRI. The soft tissue edema begins at the level of the femoral head and extends inferiorly. Small effusions within each hip joint. No marrow edema. No fracture is identified. On on the postcont rast images there is no enhancement within the marrow or the fluid surrounding the hip joint. There i s enhancement which is noncontiguous in the collection of the adductor muscles of the LEFT thigh. I s uspect this is a developing abscess or muscle necrosis. Less likely hematoma. IMPRESSION: 1. Markedly abnormal appearance to to the soft tissues and muscle surrounding the hips, greatest invo lving the LEFT hip and thigh. Extensive edema greatest involving the medial and anterior compartments . 2. Multiloculated fluid collection with noncontiguous enhancement centered in the abductor muscles of the LEFT thigh measures at least 8.6 x 3.4 cm. The extent is not completely included on this MRI of the hip. The soft tissue changes extend at least into the mid thigh. This is most consistent with a m uscular abscess or necrosis. Differential includes rhabdomyolysis and pyomyositis with bacterial seeding. Notified Brody Gonzalez MD at 08/01/2023 1:06 PM.
--- NOTE | 2023-08-01 10:20 | P.PN_ITS ---
Subjective 2 Subjective: Yesterday he was having left-sided hip pain but able to ambulate, no pain on PROM, but pain worsened, now severe, including on PROM. Due to this declined stress test as would be having difficulty transferring. Denies chest pain or pressure. He is not short of breath. Overnight also developed hematuria, heparin drip had to be discontinued. Improvement in pain of his tongue. Worsening cracking, redness, burning, pain of his lips. Vitals/I&O/Wt Last Vital Signs Temp 97.5 F L 08/01/23 07:39 Pulse 80 08/01/23 07:39 Resp 18 08/01/23 09:22 BP 156/93 08/01/23 07:39 Pulse Ox 96 08/01/23 07:39 O2 Del Method Room Air 08/01/23 07:39 07/31/23 08/01/23 08/01/23 22:59 06:59 14:59 Intake Total 500 / 740 493.2 / 1233.2 240 / 240 Output Total 1050 / 3450 2000 / 5450 Balance -550 / -2710 -1506.8 / -4216.8 240 / 240 Weight last 48 hrs Weight 115.921 kg Weight 116.12 kg Physical Exam 2 Narrative: Accompanied by family Const: COMMON NORMALS: patient oriented x3 and alert GENERAL APPEARANCE: c ooperative ORIENTATION/CONSCIOUSNESS: Yes awake HENMT: COMMON NORMALS: oropharynx normal Neck/C-Spine: COMMON NORMALS: no JVD Resp: COMMON NORMALS: normal respiratory effort and clear to auscultation bilaterally AUSCULTATION: clear to auscultation bilaterally Cardio: COMMON NORMALS: no JVD, regular rhythm, S1 normal heart sound present, S2 normal heart sound present and No murmurs present (Cardio) RHYTHM: regular rhythm HEART SOUNDS: S1 normal heart sound present and S2 normal heart sound present GI: COMMON NORMALS: Normal to inspection, nondistended, normoactive bowel sounds present, Soft to palpation and non-tender PALPATION: Yes Soft to palpation OTHER: Abdomen distended : OTHER: hematuria Extremity: COMMON NORMALS: no joint enlargement and no pedal edema GENERAL: Yes edema (2+) OTHER: No redness of L hip. Some dependent edema. Neuro: COMMON NORMALS: patient oriented x3 and moves all extremities S ENSORIUM/ORIENTATION: Yes alert Skin: COMMON NORMALS: no rashes or lesions noted GENERAL SKIN EXAM: no rashes or lesions noted Urinary Catheter Management: Antoine: Cath Placed During This Visit: no Reason for Continuing Indwelling Catheter: Accurate Measurement of Urinary Output in Critically Ill Patients Data 08/01/23 03:50 08/01/23 03:50 Micro: Microbiology 07/27/23 07:15 Blood Culture - Final Blood NO GROWTH AFTER 5 DAYS A&P Assessment and plan (1) Bacterial infection due to E. coli: (2) Sepsis: (3) Acute kidney insufficiency: (4) Dehydration: (5) Syncope and collapse: (6) D-dimer, elevated: (7) Cystitis: (8) Prostatitis: (9) Non-ST elevation NE (NSTEMI): (10) Elevated troponin: Plan Severe left hip pain: Yesterday having mild to moderate left hip pain, no pain on PROM, ambulating. Her pain progressed, now severe, unable to ambulate, pain on PROM. Requiring IV morphine. Improved with dose increased to 4 mg. After bacteremia. Otherwise afebrile, without leukocytosis, lower suspicion of septic arthritis, however, given recent bacteremia, now severe pain, discussed additional assessment with MRI. Requested. Bed rest for now. Hematuria: Currents of hematuria overnight, heparin drip to be discontinued. Urine showing, clearing up hematuria: Recurrence of hematuria overnight, heparin drip had to be stopped. With discontinuation urinary showing some clearing. Irrigate as needed until clearance of clots. Due to concern for underlying PE, currently not excluded, and intolerant of anticoagulation, discussed additional consideration of assessment either taking the risk with CT angiogram, although with recent kidney injury at risk of contrast nephropathy, versus consideration of timing of VQ scan regarding stress test given will be unable to do stress test tomorrow if doing VQ scan today, and subsequently unavailable over the weekend and Saturday is [place]. Discussed with cardiology, he has been free of chest pain, as discussed with family for now stress test okay to be postponed. VQ scan ordered. Abdominal distention: Slightly better. Patient and family requesting to remove lactose restriction. Understand may be at risk of bloating. Will let us know in case of worsening symptoms. Reviewed CBC, CMP, vitals. Reviewed CT abdomen pelvis, discussed with him and family. Unremarkable. Lower extremity mostly better but still persistent. Repeat Lasix today. Continue lactose-free diet. Simethicone drops. Discussed with medical case worker During rounds. Oropharyngeal candidiasis: Nystatin swish and swallow. Herpes labialis: Redness, cracking of the lips today progress, appears not just related to thrush, involving both upper and lower lip, with some eschar, few small ulcerations, some of them extending beyond vermilion appearance of herpes labialis. 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 Discussed precautions not to spread infection. Start valacyclovir. Less likely SJS, no other rash, lesions. Antibiotics haave been changed. Discontinued pantoprazole. Syncope and collapse: Reviewed cardiology documentation. Pending improvement in abdominal distention for additional assessment with stress testing. Additionally similarly to allow for VQ scan. Continues with heparin drip with associated risks and monitoring of PTTs. Could be in setting of sepsis versus possible non-ST elevation NE versus PE. Echocardiogram as below. Monitor blood pressures. Keep mean artery pressure over 65. Elevated troponin/non-ST elevation NE: Discussed with cardiology. He had declined stress test due to hip pain, difficulty transferring. At this time has not been having any chest pain. As per discussion okay to postpone stress test. Continue monitoring on telemetry and for symptoms changes. Echocardiogram w normal ejection fraction, no RWMA. Grade 1 diastolic dysfunction. Continues on heparin drip. Monitor PTT. At risk of bleeding. Reassess CBC. Continue with aspirin, statin, Plavix. With NSTEMI, MARY CARMEN on CKD, advanced age, possible PE, at elevated risk of complication, mortality. Monitor on CSU on telemetry. Elevated D-dimer: Along with elevated proBNP. Reordered VQ scan.Heparin drip had to be held overnight due to hematuria. Given syncope and collapse with mild subjective fever shortness of breath and hypoxia and hypercapnia on admission cannot rule out PE. Lower limb Doppler negative for DVT. CTA cannot be done because of MARY CARMEN. Ventilation/perfusion scan ordered. MARY CARMEN: Noted with some improvements in BUN, creatinine. Stop IVF. Monitor BMP daily. No electrolyte or metabolic acidosis. E. coli bacteremia: Repeat blood cultures sent on 07/28. Complicated UTI. Resolved sepsis: Continue ceftriaxone. Most likely in setting of cystitis versus prostatitis. He is not having symptoms of prostatitis, however, is freshly after prostate biopsy. There are signs of cystitis although unclear that cystitis should lead to bacteremia. Certainly a complicated urinary tract infection. Reviewed urine culture, blood culture. Follow-up. Repeat CBC. Leukocytosis reviewed, noted improving. Hypertension: Add hydralazine. Iron deficiency anemia: iron supplementation. Monitor hemoglobin daily for now. Pulmicort and DuoNeb every 6 hours. CODE STATUS: Discussed in detail with patient. Patient's and daughter will be the DPOA. Full code. But does not want to remain on mechanical ventilator for a long time. Renal nondialysis Protonix for PUD prophylaxis. Attestations 2 Medical Necessity Statement*: Continue admission for additional assessment of severe hip pain with recent bacteremia, additional assessment for PE, unable to tolerate anticoagulation at this time with recurrence of hematuria, and gentleman with MARY CARMEN, recent NSTEMI, complicated UTI, additional comorbidities as above. Diagnoses Bacterial infection due to E. coli A49.8 Sepsis A41.9 Acute kidney insufficiency N28.9 Dehydration E86.0 Syncope and collapse R55 D-dimer, elevated R79.89 Cystitis N30.90 Prostatitis N41.9 Non-ST elevation NE (NSTEMI) I21.4 Elevated troponin R79.89
[2023-08-01] MEDS: gadobenate dimeglumine 20 mL vial IV (11:39)
[2023-08-01] MEDS: FUROsemide 10 mg/mL SDV 2mL 20 MG IVP (12:40)
[2023-08-01] MEDS: valACYclovir 1,000 mg Tablet 2000 MG PO ×2 (12:40→23:06)
[2023-08-01 13:47] LABS: Creatine Phosphokinase 972 U/L (39-308)
--- NOTE | 2023-08-01 17:05 | P.CONIM_ITS ---
Providers/Reason For Consult 2 Consulting Physician/Specialty*: Hospitalist Reason for Consult*: possible abscess Attending Physician: Brody Gonzalez Primary Care Provider: Any Hill MD History of Present Illness History of Present Illness Home S[place]ey is a 88 year old male came to the hospital in a sepsis picture. Patient had a history of a biopsy a couple days ago of his prostate. Patient yesterday started having severe pain on his lateral hip. Today I examined him with the at the bedside patient states that he is not having any pain at this moment. They did not get him out of bed however today this evening walk. Review of Systems 2 Const: Denies: fever(s) or chills Card: Denies: chest pain Resp: Denies: dyspnea or wheezing Skin/Breast: Reports: sores (right hand) Psych: Denies: difficulty concentrating Medications/Allergies Home Medications Medication Instructions Recorded Confirmed Last Taken Type budesonide-formoterol HFA 160 2 puff inhalation BID 12/02/19 07/27/23 Unknown History mcg-4.5 mcg/actuation aerosol inhaler (Symbicort) ondansetron HCl 4 mg tablet 4 mg PO Q12H 5 days #10 tabs 07/26/23 Unknown Rx aspirin 81 mg chewable tablet 81 mg PO DAILY 07/28/23 07/28/23 Unknown History fluticasone 250 mcg-salmeterol 50 1 inh inhalation BID 07/28/23 07/28/23 Unknown History mcg/dose blistr powdr for inhalation (Wixela Inhub) furosemide 20 mg tablet 20 mg PO DAILY 07/28/23 07/28/23 Unknown History losartan 50 mg tablet 75 mg PO DAILY 07/28/23 07/28/23 Unknown History metoprolol succinate 25 mg 25 mg PO DAILY 07/28/23 07/28/23 Unknown History tablet,extended release 24 hr Allergies Allergy/AdvReac Type Severity Reaction Status Date / Time ciprofloxacin [From Cipro] Allergy RASH Verified 12/02/19 13:32 Current Medications Generic Name Dose Route Start Last Admin Trade Name Freq PRN Reason Stop Dose Admin Acetaminophen 500 mg 07/27/23 01:15 08/01/23 08:21 Acetaminophen 500 Mg Tablet PO 500 mg Q4H PRN Administration fever Albuterol/Ipratropium 3 ml 07/27/23 01:15 07/27/23 11:55 Ipratropium-Albuterol 3 Ml Neb INHALATION 3 ml Q6H PRN Administration SHORTNESS OF BREATH Aspirin 81 mg 07/27/23 09:00 08/01/23 08:21 Aspirin 81 Mg Ec Tablet PO 81 mg DAILY SANDEE Administration Atorvastatin Calcium 80 mg 07/27/23 21:00 07/31/23 21:22 Atorvastatin 40 Mg Tablet PO 80 mg BEDTIME SANDEE Administration Budesonide 0.5 mg 07/31/23 20:00 08/01/23 10:22 Budesonide 0.5 Mg/2 Ml Neb INHALATION Not Given BID.RESPIRATORY SANDEE Clopidogrel Bisulfate 75 mg 07/27/23 09:00 08/01/23 08:21 Clopidogrel 75 Mg Tablet PO 75 mg DAILY SANDEE Administration Heparin Sodium (Porcine) 0 unit 07/27/23 06:14 07/29/23 03:01 Heparin 5,000 Unit/Ml Inj 1 Ml IV 2,200 unit PRN PRN Administration Heparin weight-base protocol Protocol Hydralazine HCl 25 mg 07/31/23 14:35 08/01/23 15:30 Hydralazine 25 Mg Tablet PO 25 mg TID SANDEE Administration Sodium Chloride 1,000 mls @ 100 mls/hr 07/27/23 01:15 07/29/23 21:09 Sodium Chloride 0.9% IV 100 mls/hr .Q10H SANDEE Administration Heparin Sodium/Sodium Chloride 25,000 unit in 500 mls @ 0 mls/hr 07/27/23 06:15 08/01/23 05:31 Heparin Drip IV 0 unit/kg/hr .Q0M SANDEE 0 mls/hr Titration Protocol Per Protocol Ceftriaxone Sodium 1,000 mg/ 50 mls @ 100 mls/hr 07/29/23 23:45 08/01/23 02:05 Sodium Chloride IV Infused Q24H SANDEE Infusion Protocol Lanolin 1 applic 07/29/23 03:27 07/29/23 13:55 Lanolin Oint 7 Gm TOPICAL 1 applic PRN PRN Administration DRYNESS Nystatin 400,000 unit 07/31/23 09:00 08/01/23 12:41 Nystatin 100,000 Unit/Ml Udc 5 Ml PO 400,000 unit QID SANDEE Administration Simethicone 40 mg 07/30/23 23:10 07/31/23 11:29 Simethicone 40 Mg/0.6 Ml Bottle 30ml PO 40 mg BID PRN Administration FLATULENCE Valacyclovir HCl 2,000 mg 08/01/23 10:30 08/01/23 12:40 Valacyclovir 1,000 Mg Tablet PO 08/02/23 10:29 2,000 mg Q12H SANDEE Administration PFSH Acute 2 PFSH: Medical History HTN (hypertension) Surgical History History of cholecystectomy Social History Smoking and tobacco/nicotine status: never used tobacco/nicotine Alcohol intake: never Substance/Drug Use: never Vitals/I&O/Wt Last Vital Signs Temp 98.8 F 08/01/23 16:00 Pulse 104 H 08/01/23 16:00 Resp 24 H 08/01/23 12:00 BP 173/78 08/01/23 16:00 Pulse Ox 97 08/01/23 16:00 O2 Del Method Room Air 08/01/23 16:00 08/01/23 08/01/23 08/01/23 06:59 14:59 22:59 Intake Total 493.2 / 1233.2 240 / 240 Output Total 2000 / 5450 1700 / 1700 Balance -1506.8 / -4216.8 -1460 / -1460 Weight last 48 hrs Weight 255 lb 9 oz Weight 256 lb Physical Exam 2 Narrative: Patient has no pain to palpation over the adductor muscles. Patient has slight pain when I flex and abduct his leg up in the abductors patient leg is somewhat swollen. No evidence of any erythema or redness. Urinary Catheter Management: Antoine: Cath Placed During This Visit: no Reason for Continuing Indwelling Catheter: Accurate Measurement of Urinary Output in Critically Ill Patients Data 08/01/23 03:50 08/01/23 03:50 Micro: Microbiology 07/27/23 04:21 Blood Culture - Final Blood Escherichia coli 07/27/23 07:15 Blood Culture - Final Blood NO GROWTH AFTER 5 DAYS A&P Assessment and plan (1) Hip pain, acute: Patient has right hip pain yesterday however today symptoms are improved. At this point I do not feel that this patient has an abscess in his leg clinically does not have any pain with palpation. Patient did have a history of a prostate biopsy possibly when he was positioned to get the biopsy they strained or pulled his adductor muscles or possibly some was leaning on the muscle especially with his history of blood thinners possibly hematoma however with the patient not being in any pain would not pursue chasing after this at this point. Will get the patient up with physical therapy tomorrow and see how he is doing if he is not having any pain then just continue to watch and treat conservatively. Qualifiers: Laterality: right Qualified Code(s): M25.551 - Pain in right hip Coding Level of Care Code Acute Code for [facility] Diagnoses Acute pain of right hip M25.551 Laterality: right
--- NOTE | 2023-08-01 20:25 | P.PN_ITS ---
Subjective 2 Subjective: Patient was having a lot of pain in the left hip. For this reason, the Myocardial perfusion imaging was postponed. Patient denies any chest pain or shortness of breath. The blood pressure seems to be remaining elevated in the 150s and 170s. No fever or chills. Abdominal discomfort is improving. Medications: Medication Review Details: Current Medications Acetaminophen (Acetaminophen 500 Mg Tablet) 500 mg PO Q4H PRN PRN Reason: fever Last Admin: 08/01/23 08:21 Dose: 500 mg Albuterol/Ipratropium (Ipratropium-Albuterol 3 Ml Neb) 3 ml INHALATION Q6H PRN PRN Reason: SHORTNESS OF BREATH Last Admin: 07/27/23 11:55 Dose: 3 ml Aspirin (Aspirin 81 Mg Ec Tablet) 81 mg PO DAILY SANDEE Last Admin: 08/01/23 08:21 Dose: 81 mg Atorvastatin Calcium (Atorvastatin 40 Mg Tablet) 80 mg PO BEDTIME SANDEE Last Admin: 07/31/23 21:22 Dose: 80 mg Budesonide (Budesonide 0.5 Mg/2 Ml Neb) 0.5 mg INHALATION BID.RESPIRATORY SANDEE Last Admin: 08/01/23 20:00 Dose: Not Given Clopidogrel Bisulfate (Clopidogrel 75 Mg Tablet) 75 mg PO DAILY SANDEE Last Admin: 08/01/23 08:21 Dose: 75 mg Heparin Sodium (Porcine) (Heparin 5,000 Unit/Ml Inj 1 Ml) 0 unit IV PRN PRN; Protocol PRN Reason: Heparin weight-base protocol Last Admin: 07/29/23 03:01 Dose: 2,200 unit Hydralazine HCl (Hydralazine 25 Mg Tablet) 25 mg PO TID SANDEE Last Admin: 08/01/23 15:30 Dose: 25 mg Sodium Chloride (Sodium Chloride 0.9%) 1,000 mls @ 100 mls/hr IV .Q10H SANDEE Last Admin: 07/29/23 21:09 Dose: 100 mls/hr Heparin Sodium/Sodium Chloride (Heparin Drip) 25,000 unit in 500 mls @ 0 mls/hr IV .Q0M SANDEE; Protocol Last Titration: 08/01/23 05:31 Dose: 0 unit/kg/hr, 0 mls/hr Ceftriaxone Sodium 1,000 mg/ (Sodium Chloride) 50 mls @ 100 mls/hr IV Q24H SANDEE; Protocol Last Infusion: 08/01/23 02:05 Dose: Infused Lanolin (Lanolin Oint 7 Gm) 1 applic TOPICAL PRN PRN PRN Reason: DRYNESS Last Admin: 07/29/23 13:55 Dose: 1 applic Morphine Sulfate (Morphine 4 Mg/Ml Sdv 1 Ml) 4 mg IVP Q4H PRN PRN Reason: SEVERE PAIN Last Admin: 08/01/23 19:14 Dose: 4 mg Nystatin (Nystatin 100,000 Unit/Ml Udc 5 Ml) 400,000 unit PO QID SANDEE Last Admin: 08/01/23 17:18 Dose: 400,000 unit Ondansetron HCl (Ondansetron 2 Mg/Ml Sdv 2 Ml) 4 mg IVP Q6H PRN PRN Reason: NAUSEA AND VOMITING Simethicone (Simethicone 40 Mg/0.6 Ml Bottle 30ml) 40 mg PO BID PRN PRN Reason: FLATULENCE Last Admin: 07/31/23 11:29 Dose: 40 mg Valacyclovir HCl (Valacyclovir 1,000 Mg Tablet) 2,000 mg PO Q12H [facility] Stop: 08/02/23 10:29 Last Admin: 08/01/23 12:40 Dose: 2,000 mg Vitals/I&O/Wt Last Vital Signs Temp 98.8 F 08/01/23 16:00 Pulse 104 H 08/01/23 16:00 Resp 24 H 08/01/23 12:00 BP 173/78 08/01/23 16:00 Pulse Ox 97 08/01/23 16:00 O2 Del Method Room Air 08/01/23 16:00 08/01/23 08/01/23 08/01/23 06:59 14:59 22:59 Intake Total 493.2 / 1233.2 240 / 240 Output Total 2000 / 5450 1700 / 1700 650 / 2350 Balance -1506.8 / -4216.8 -1460 / -1460 -650 / -2110 Weight last 48 hrs Weight 255 lb 9 oz Weight 256 lb Physical Exam 2 Narrative: GENERAL: The patient is alert and oriented times three. Not in any acute distress. HEENT: No significant pallor, icterus or lymphadenopathy.Oral cavity: There are no mucous membrane lesions. Superficial ecchymotic areas on the face NECK: Trachea appears to be central. No masses noted. No JVD or thyromegaly appreciated. RESPIRATORY: Chest is symmetrical. No intercostals muscle retraction or any accessory muscle activation. There is no chest wall tenderness. Breath sounds are heard bilaterally. No rales or rhonchi heard. No evidence of any consolidation. BREASTS: Deferred. HEART: The heart sounds are normal. No S3 or S4. No significant murmurs. No pericardial rub ABDOMEN: The abdomen has some distention but seems to be much less. Vague tenderness in the epigastric area. Bowel sounds are normally heard. : Deferred. RECTAL: Deferred. LYMPHATIC: No lymphadenopathy noted in the neck. EXTREMITIES: No edema or cyanosis. No clubbing. MUSCULOSKELETAL: Patient has significant discomfort to the left hip movement SKIN: There are no significant rashes or ecchymosis NEUROPSYCHIATRIC: The patient is alert and oriented x3. Appears to be in a good mood. No tremors or rigidity noted. Urinary Catheter Management: Antoine: Cath Placed During This Visit: no Reason for Continuing Indwelling Catheter: Accurate Measurement of Urinary Output in Critically Ill Patients Data 08/01/23 03:50 08/01/23 03:50 Other Labs: Laboratory Last Values WBC 9.00 10^3/uL (3.29-11.43) 08/01/23 03:50 RBC 4.19 10^6/uL (3.85-5.65) 08/01/23 03:50 Hgb 12.40 g/dL (11.27-16.99) 08/01/23 03:50 Hct 36.3 % (37-53) L 08/01/23 03:50 MCV 86.6 fl (82-101) 08/01/23 03:50 MCH 29.6 pg (27-33) 08/01/23 03:50 MCHC 34.2 g/dL (30-55) 08/01/23 03:50 RDW 14.0 % (12.1-15.1) 08/01/23 03:50 Plt Count 158 10^3/cmm (157-399) 08/01/23 03:50 MPV 10.4 fL (7.4-10.4) 08/01/23 03:50 Neut % (Auto) 60.6 % 08/01/23 03:50 Lymph % (Auto) 15.9 % 08/01/23 03:50 [place] % (Auto) 15.0 % 08/01/23 03:50 Eos % (Auto) 3.1 % 08/01/23 03:50 Baso % (Auto) 0.6 % 08/01/23 03:50 Neut # (Auto) 5.46 10^3/uL (1.8-7.7) 08/01/23 03:50 Lymph # (Auto) 1.4 10^3/uL (0.8-4.8) 08/01/23 03:50 [place] # (Auto) 1.4 10^3/uL (0.2-0.9) H 08/01/23 03:50 Eos # (Auto) 0.3 10^3/uL (0.0-0.8) 08/01/23 03:50 Baso # (Auto) 0.1 10^3/uL (0.0-0.1) 08/01/23 03:50 Nucleated RBC % (auto) 0 % 08/01/23 03:50 Nucleated RBCs # 0.0 /100WBC 08/01/23 03:50 PT 15.30 SECONDS (12.1-14.9) H 07/26/23 20:42 INR 1.17 (0.8-1.2) 07/26/23 20:42 APTT 59.8 SECONDS (23.9-36.7) H 08/01/23 03:50 D-Dimer 18.51 ug/mLFEU (0-0.59) H 07/27/23 00:00 Specimen Type Arterial 07/27/23 02:48 Sample Site Radial, left 07/27/23 02:48 ABG pH 7.43 (7.35-7.45) 07/27/23 02:48 ABG pCO2 33.2 mmHg (35-45) L 07/27/23 02:48 ABG pO2 64.1 mmHg (80.0-100.0) L 07/27/23 02:48 ABG PO2/FiO2 Ratio 0 07/27/23 02:48 ABG HCO3 22.1 mmol/L (22-26) 07/27/23 02:48 ABG Base Excess -1.5 mmol/L (-2.0-2.0) 07/27/23 02:48 Ortiz Test Pos 07/27/23 02:48 Hematocrit 44.4 % (42-52) 07/27/23 02:48 O2 Delivery Device Nc 07/27/23 02:48 FiO2 21.0 % 07/27/23 02:48 Cleaner Signs ID Rodriguez 07/27/23 02:48 Sodium 137 mmol/L (136-145) 08/01/23 03:50 Potassium 3.4 mmol/L (3.5-5.1) L 08/01/23 03:50 Chloride 103 mmol/L (98-107) 08/01/23 03:50 Carbon Dioxide 23 mmol/L (22-29) 08/01/23 03:50 Anion Gap 14.4 (5-19) 08/01/23 03:50 BUN 19 mg/dL (8-23) 08/01/23 03:50 Creatinine 1.2 mg/dL (0.7-1.2) 08/01/23 03:50 GFR Calculation Not Reportable 08/01/23 03:50 Glucose 106 mg/dL (65-115) 08/01/23 03:50 Estimat Average Glucose 134 07/27/23 04:21 Hemoglobin A1c 6.3 % (4.0-6.0) H 07/27/23 04:21 Calculated Osmolality 287 mOsm/kg (285-295) 08/01/23 03:50 Lactic Acid 3.5 mmol/L (0.5-2.2) H 07/27/23 00:00 Lactic Acid (Sepsis) 3.8 mmol/L (0.5-2.2) H 07/27/23 04:21 Lactate 3.8 mmol/L (0.5-2.2) H 07/27/23 07:15 Calcium 8.3 mg/dL (8.5-10.5) L 08/01/23 03:50 Phosphorus 2.3 mg/dL (2.5-4.5) L 07/30/23 03:57 Magnesium 2.1 mg/dL (1.7-2.3) 07/30/23 03:57 Iron 9 ug/dL (59-158) L 07/27/23 04:21 TIBC 217 mcg/dl 07/27/23 04:21 % Saturation 4.1 % (20-50) L 07/27/23 04:21 Unsat Iron Binding 208 ug/dL (112-347) 07/27/23 04:21 Total Bilirubin 0.6 mg/dL (0.15-1.2) 08/01/23 03:50 AST 107 U/L (0-40) H 08/01/23 03:50 ALT 68 U/L (0-41) H 08/01/23 03:50 Alkaline Phosphatase 81 U/L (40-130) 08/01/23 03:50 Creatine Kinase 972 U/L (39-308) H* 08/01/23 03:50 Troponin T Baseline 236 ng/L (0-15) H* 07/27/23 04:21 Troponin T 120 Minute 219.8 ng/L (0-15) H 07/27/23 07:15 Delta Troponin T -16.2 ABS# (0-10) L 07/27/23 07:15 Troponin T Hi Sens 6Hr 170.1 ng/L (0-15) H 07/27/23 10:36 Troponin T Hi Sens 6Hr Delta -65.9 ng/L (0-12) L 07/27/23 10:36 C-Reactive Protein 103.4 mg/L (0.0-4.9) H 07/27/23 04:21 NT-Pro-B Natriuret Pep 5638 pg/mL (0-450) H 07/27/23 04:21 Total Protein 5.8 g/dL (6.6-8.7) L 08/01/23 03:50 Albumin 3.0 g/dL (3.5-5.2) L 08/01/23 03:50 Globulin 2.8 g/dL (1.3-4.6) 08/01/23 03:50 Triglycerides 175 mg/dL (0-150) H 07/28/23 05:00 Cholesterol 96 mg/dL (0-200) 07/28/23 05:00 LDL Cholesterol, Calc 37 mg/dL (50-129) L 07/28/23 05:00 Total VLDL Cholesterol 35 mg/dL (0-30) H 07/28/23 05:00 HDL Cholesterol 24 mg/dL (60-100) L 07/28/23 05:00 Cholesterol/HDL Ratio 4.00 mg/dL (1.0-5.00) 07/28/23 05:00 Vitamin B12 287 pg/mL (232-1245) 07/27/23 04:21 Folate 4.6 ng/mL (4.5-32.2) 07/28/23 05:00 Procalcitonin 66.13 ng/mL (0-0.5) H 07/27/23 00:00 TSH 0.88 uIU/mL (0.27-4.20) 07/27/23 04:21 Urine Color Brown (Yellow) A 07/27/23 12:04 Urine Color Cancelled 07/27/23 12:04 Urine Appearance Cancelled 07/27/23 12:04 Urine Appearance Cloudy (CLEAR) A 07/27/23 12:04 Urine pH 5 (5-7) 07/27/23 12:04 Urine pH Cancelled 07/27/23 12:04 Ur Specific [place] 1.020 (1.005-1.030) 07/27/23 12:04 Ur Specific [place] Cancelled 07/27/23 12:04 Urine Protein 3+ (Negative) H 07/27/23 12:04 Urine Protein Cancelled 07/27/23 12:04 Urine Glucose (UA) Cancelled 07/27/23 12:04 Urine Glucose (UA) Norm (Normal) 07/27/23 12:04 Urine Ketones Cancelled 07/27/23 12:04 Urine Ketones Negative (Negative) 07/27/23 12:04 Urine Blood 3+ (Negative) H 07/27/23 12:04 Urine Blood Cancelled 07/27/23 12:04 Urine Nitrate Cancelled 07/27/23 12:04 Urine Nitrate Negative (Negative) 07/27/23 12:04 Urine Bilirubin 1+ (Negative) H 07/27/23 12:04 Urine Bilirubin Cancelled 07/27/23 12:04 Prot Sulfosalicylic Acd Cancelled 07/27/23 12:04 Urine Urobilinogen Cancelled 07/27/23 12:04 Urine Urobilinogen Norm mg/dL (Negative) 07/27/23 12:04 Ur Leukocyte Esterase 2+ (Negative) H 07/27/23 12:04 Ur Leukocyte Esterase Cancelled 07/27/23 12:04 Urine RBC >100 /hpf (0-2) H 07/27/23 12:04 Urine WBC 25-40 /hpf (0-5) H 07/27/23 12:04 Ur Squamous Epith Cells None /hpf (0-5) 07/27/23 12:04 Amorphous Sediment Not Reportable 07/27/23 12:04 Urine Bacteria 2+ /hpf (NONE) H 07/27/23 12:04 Coarse Granular Casts 25-40 /lpf H 07/27/23 12:04 Nasal Influ A H1 2009 PCR Not detected (NOT DETECT) 07/27/23 01:20 Urine Opiates Screen Negative ng/mL (Negative) 07/27/23 12:04 Ur Barbiturates Screen Negative ng/mL (Negative) 07/27/23 12:04 Ur Phencyclidine Scrn Negative ng/mL (Negative) 07/27/23 12:04 Ur Amphetamines Screen Negative ng/mL (Negative) 07/27/23 12:04 U Benzodiazepines Scrn Negative ng/mL (Negative) 07/27/23 12:04 Urine Cocaine Screen Negative ng/mL (Negative) 07/27/23 12:04 U Marijuana (THC) Screen Negative ng/mL (Negative) 07/27/23 12:04 Adenovirus (PCR) Not detected (NOT DETECT) 07/27/23 01:20 C. pneumoniae DNA (PCR) Not detected (NOT DETECT) 07/27/23 01:20 C. difficile Tox (PCR) Cancelled 07/27/23 20:36 Coronavirus 229E (PCR) Not detected (NOT DETECT) 07/27/23 01:20 Human Metapneumovir PCR Not detected (NOT DETECT) 07/27/23 01:20 Influenza A (H1) PCR Not detected (NOT DETECT) 07/27/23 01:20 Influenza A (H3) PCR Not detected (NOT DETECT) 07/27/23 01:20 Influenza Type A (PCR) Not detected (NOT DETECT) 07/27/23 01:20 Influenza Type B (PCR) Not detected (NOT DETECT) 07/27/23 01:20 M. pneumoniae (PCR) Not detected (NOT DETECT) 07/27/23 01:20 Parainfluenza 1 (PCR) Not detected (NOT DETECT) 07/27/23 01:20 Parainfluenza 2 (PCR) Not detected (NOT DETECT) 07/27/23 01:20 Parainfluenza 3 (PCR) Not detected (NOT DETECT) 07/27/23 01:20 Parainfluenza 4 (PCR) Not detected (NOT DETECT) 07/27/23 01:20 RSV Type A (PCR) Not detected (NOT DETECT) 07/27/23 01:20 RSV Type B (PCR) Not detected (NOT DETECT) 07/27/23 01:20 Entero/Rhino (PCR) Not detected (NOT DETECT) 07/27/23 01:20 SARS-CoV-2 (PCR) Not detected (NOT DETECT) 07/27/23 01:20 MRSA (PCR) Not detected (NOT DETECTED) 07/27/23 14:10 Micro: Microbiology 07/27/23 04:21 Blood Culture - Final Blood Escherichia coli 07/27/23 07:15 Blood Culture - Final Blood NO GROWTH AFTER 5 DAYS A&P Assessment and plan (1) Elevated troponin: Because of the patient's multiple other medical problems and also since that he has no specific symptoms of coronary insufficiency, it may be appropriate to hold off on the Myocardial perfusion imaging for the time being. This may be done as an outpatient. (2) Syncope and collapse: This could be multifactorial. Vasovagal reaction, hypotension, cardiac arrhythmia, etc. are considerations. Patient needs to be closely monitored on telemetry. Adequate hydration would be appropriate. Coronary ischemia causing this also is a consideration. No significant arrhythmias on the monitor so far. Pulmonary embolism is being considered. Patient is going for VQ scan tomorrow. (3) Acute kidney insufficiency: The exact etiology is not clear. The BUN/creatinine levels seems to be fairly stable and improved at this point. May continue on the current measures. (4) Elevated brain natriuretic peptide (BNP) level: Clinical the patient has no evidence of heart failure at this time. May continue on the current treatment measures (5) Bacterial infection due to E. coli: Patient is responding to the antibiotic. The white cell count is back to normal. 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 coli A49.8
[2023-08-01] MEDS: atorvastatin 40 mg Tablet 80 MG PO (23:06)
[2023-08-01] MEDS: hyDRALAzine 50 mg Tablet PO (23:07)
[2023-08-02] VITALS (64 sets, daily range): BP systolic 105–169; BP diastolic 61–113; PULSE 81–109; RESP 16–24; TEMP 36.4–37.2; O2SAT 90–98
[2023-08-02 00:49] LABS: Hematocrit 32.4 % (37-53)
[2023-08-02 01:10] LABS: Glucose Point of Care 119 mg/dL (70-110)
[2023-08-02 03:59] LABS: Basophils % 0.4 %; Eosinophils # 0.2 10^3/uL (0.0-0.8); Eosinophils % 1.4 %; Hematocrit 31.1 % (37-53); Lymphocytes # 1.5 10^3/uL (0.8-4.8); Lymphocytes % 13.8 %; Mean Corpuscular HGB Conc 33.1 g/dL (30-55); Mean Corpuscular Hemoglobin 29.2 pg (27-33); Mean Corpuscular Volume 88.1 fl (82-101); Mean Platelet Volume 10.5 fL (7.4-10.4); Monocytes # 1.6 10^3/uL (0.2-0.9); Monocytes % 14.1 %; Neutrophils % 67.9 %; Nucleated Red Blood Cells % 0 %; Platelet Count 182 10^3/cmm (157-399); Red Blood Count 3.53 10^6/uL (3.85-5.65); Red Cell Distribution Width 14.2 % (12.1-15.1); White Blood Count 11.05 10^3/uL (3.29-11.43)
[2023-08-02 04:20] LABS: Alanine Aminotransferase 58 U/L (0-41); Albumin Level 2.9 g/dL (3.5-5.2); Alkaline Phosphatase 68 U/L (40-130); Anion Gap 14.6 (5-19); Aspartate Amino Transferase 73 U/L (0-40); Blood Urea Nitrogen 24 mg/dL (8-23); Calcium 8.1 mg/dL (8.5-10.5); Carbon Dioxide 26 mmol/L (22-29); Chloride 101 mmol/L (98-107); Globulin 2.7 g/dL (1.3-4.6); Glucose 126 mg/dL (65-115); Osmolality Calculated 292 mOsm/kg (285-295); Potassium 3.6 mmol/L (3.5-5.1); Sodium 138 mmol/L (136-145); Total Bilirubin 0.5 mg/dL (0.15-1.2); Total Protein 5.6 g/dL (6.6-8.7)
--- NOTE | 2023-08-02 04:53 | PC.NURSE ---
At 0000 patient stated that he needed to use BSC. Found patient in pool of gross red blood with clots. Helped patient up to BSC, 6oomL of gross red blood with large clots was noted. Dr Lowry notified, H&H was obtained as documented. 1 unit PRBC administered. Vital signs as documented.
--- NOTE | 2023-08-02 04:59 | PC.NURSE ---
675 mL out Blood and blood clots from rectum
[2023-08-02] MEDS: nystatin 100,000 unit/mL UDC 5 mL 400000 UNIT PO ×4 (08:13→20:17)
[2023-08-02] MEDS: hyDRALAzine 50 mg Tablet PO ×3 (08:13→20:17)
--- NOTE | 2023-08-02 09:18 | PC.SOCIAL ---
IMM Update Pg. 2 of IMM updated and reviewed with patient who verbalized understanding. Copy provided.
[2023-08-02] MEDS: acetaminophen 500 mg Tablet PO ×3 (09:53→21:13)
--- NOTE | 2023-08-02 11:14 | NM_ITS ---
WS: [id number] NUCLEAR MEDICINE LUNG VENTILATION AND PERFUSION CLINICAL INFORMATION: ACCESS FOR PE TECHNIQUE: Ventilation/perfusion lung scan with 23.9 mCi technetium 99m DTPA and 4.0 mCi MAA. COMPARISON: CT 07/27/2023. FINDINGS: Symmetric bilateral radiotracer uptake on the perfusion images. Patchy radiotracer deposition on the ventilatory images along the central bronchi compatible with chronic emphysematous changes. No mismat ched ventilation/perfusion defects to indicate pulmonary embolus. Low probability for pulmonary embol us. IMPRESSION: 1. Low probability for pulmonary embolus.
--- NOTE | 2023-08-02 14:38 | P.PN_ITS ---
Subjective 2 Subjective: Patient was sitting up in chair comfortable. Has been up ambulating does not have any hip pain at this time. Vitals/I&O/Wt Last Vital Signs Temp 98.7 F 08/02/23 08:20 Pulse 92 08/02/23 12:00 Resp 18 08/02/23 08:20 BP 144/113 08/02/23 12:00 Pulse Ox 95 08/02/23 12:00 O2 Del Method Room Air 08/02/23 12:00 08/01/23 08/02/23 08/02/23 22:59 06:59 14:59 Intake Total 1500 / 1740 690 / 2430 250 / 250 Output Total 1100 / 2800 825 / 3625 Balance 400 / -1060 -135 / -1195 250 / 250 Weight last 48 hrs Weight 252 lb 8 oz Weight 255 lb 9 oz Physical Exam 2 Narrative: Sitting up comfortable in chair no complaints. Urinary Catheter Management: Antoine: Cath Placed During This Visit: no Reason for Continuing Indwelling Catheter: Accurate Measurement of Urinary Output in Critically Ill Patients Data 08/02/23 03:48 08/02/23 03:48 Micro: Microbiology 07/28/23 05:00 Blood Culture - Final Blood NO GROWTH AFTER 5 DAYS 07/28/23 05:00 Blood Culture - Final Blood NO GROWTH AFTER 5 DAYS 07/27/23 04:21 Blood Culture - Final Blood Escherichia coli A&P Assessment and plan (1) Hip pain, acute: Patient's pain is significant improved. At this point will follow from a distance please call if pain returns. Qualifiers: Laterality: right Qualified Code(s): M25.551 - Pain in right hip Attestations 2 Medical Necessity Statement*: Per primary service Coding Level of Care Code Acute Code for [facility] Fwd Diagnoses Acute pain of right hip M25.551 Laterality: right
--- NOTE | 2023-08-02 15:54 | P.PN_ITS ---
Subjective 2 Subjective: Patient apparently had a lower GI bleed yesterday requiring 1 unit of blood transfusion. No chest pain or shortness of breath. No arrhythmias on the monitor. No syncopal episodes. His the hip pain is better. The white cell count seem to be coming down. Medications: Medication Review Details: Current Medications Acetaminophen (Acetaminophen 500 Mg Tablet) 500 mg PO Q4H PRN PRN Reason: fever Last Admin: 08/02/23 09:53 Dose: 500 mg Albuterol/Ipratropium (Ipratropium-Albuterol 3 Ml Neb) 3 ml INHALATION Q6H PRN PRN Reason: SHORTNESS OF BREATH Last Admin: 07/27/23 11:55 Dose: 3 ml Aspirin (Aspirin 81 Mg Ec Tablet) 81 mg PO DAILY SANDEE Last Admin: 08/02/23 08:09 Dose: Not Given Atorvastatin Calcium (Atorvastatin 40 Mg Tablet) 80 mg PO BEDTIME SANDEE Last Admin: 08/01/23 23:06 Dose: 80 mg Budesonide (Budesonide 0.5 Mg/2 Ml Neb) 0.5 mg INHALATION BID.RESPIRATORY SANDEE Last Admin: 08/02/23 13:19 Dose: Not Given Clopidogrel Bisulfate (Clopidogrel 75 Mg Tablet) 75 mg PO DAILY SANDEE Last Admin: 08/02/23 08:09 Dose: Not Given Heparin Sodium (Porcine) (Heparin 5,000 Unit/Ml Inj 1 Ml) 0 unit IV PRN PRN; Protocol PRN Reason: Heparin weight-base protocol Last Admin: 07/29/23 03:01 Dose: 2,200 unit Hydralazine HCl (Hydralazine 50 Mg Tablet) 50 mg PO TID SANDEE Last Admin: 08/02/23 15:41 Dose: 50 mg Sodium Chloride (Sodium Chloride 0.9%) 1,000 mls @ 100 mls/hr IV .Q10H SANDEE Last Admin: 07/29/23 21:09 Dose: 100 mls/hr Heparin Sodium/Sodium Chloride (Heparin Drip) 25,000 unit in 500 mls @ 0 mls/hr IV .Q0M SANDEE; Protocol Last Titration: 08/01/23 05:31 Dose: 0 unit/kg/hr, 0 mls/hr Ceftriaxone Sodium 1,000 mg/ (Sodium Chloride) 50 mls @ 100 mls/hr IV Q24H SANDEE; Protocol Last Infusion: 08/02/23 03:31 Dose: Infused Lanolin (Lanolin Oint 7 Gm) 1 applic TOPICAL PRN PRN PRN Reason: DRYNESS Last Admin: 07/29/23 13:55 Dose: 1 applic Morphine Sulfate (Morphine 4 Mg/Ml Sdv 1 Ml) 4 mg IVP Q4H PRN PRN Reason: SEVERE PAIN Last Admin: 08/01/23 19:14 Dose: 4 mg Nystatin (Nystatin 100,000 Unit/Ml Udc 5 Ml) 400,000 unit PO QID SANDEE Last Admin: 08/02/23 12:40 Dose: 400,000 unit Ondansetron HCl (Ondansetron 2 Mg/Ml Sdv 2 Ml) 4 mg IVP Q6H PRN PRN Reason: NAUSEA AND VOMITING Simethicone (Simethicone 40 Mg/0.6 Ml Bottle 30ml) 40 mg PO BID PRN PRN Reason: FLATULENCE Last Admin: 07/31/23 11:29 Dose: 40 mg Sodium Chloride (Sodium Chloride 0.9% 100 Ml Bag) 50 ml IV PRN PRN PRN Reason: Blood transfusion prime and flush Stop: 08/03/23 01:20 Vitals/I&O/Wt Last Vital Signs Temp 98.7 F 08/02/23 08:20 Pulse 92 08/02/23 12:00 Resp 18 08/02/23 08:20 BP 144/113 08/02/23 12:00 Pulse Ox 95 08/02/23 12:00 O2 Del Method Room Air 08/02/23 12:00 08/02/23 08/02/23 08/02/23 06:59 14:59 22:59 Intake Total 690 / 2430 250 / 250 Output Total 825 / 3625 Balance -135 / -1195 250 / 250 Weight last 48 hrs Weight 252 lb 8 oz Weight 255 lb 9 oz Physical Exam 2 Narrative: GENERAL: The patient is alert and oriented times three. Not in any acute distress. HEENT: No significant pallor, icterus or lymphadenopathy.Oral cavity: There are no mucous membrane lesions. Superficial ecchymotic areas on the face NECK: Trachea appears to be central. No masses noted. No JVD or thyromegaly appreciated. RESPIRATORY: Chest is symmetrical. No intercostals muscle retraction or any accessory muscle activation. There is no chest wall tenderness. Breath sounds are heard bilaterally. No rales or rhonchi heard. No evidence of any consolidation. BREASTS: Deferred. HEART: The heart sounds are normal. No S3 or S4. No significant murmurs. No pericardial rub ABDOMEN: The abdomen has some distention but seems to be much less. Vague tenderness in the epigastric area. Bowel sounds are normally heard. : Deferred. RECTAL: Deferred. LYMPHATIC: No lymphadenopathy noted in the neck. EXTREMITIES: No edema or cyanosis. No clubbing. MUSCULOSKELETAL: Patient has significant discomfort to the left hip movement SKIN: There are no significant rashes or ecchymosis NEUROPSYCHIATRIC: The patient is alert and oriented x3. Appears to be in a good mood. No tremors or rigidity noted. Urinary Catheter Management: Antoine: Cath Placed During This Visit: no Reason for Continuing Indwelling Catheter: Accurate Measurement of Urinary Output in Critically Ill Patients Data 08/02/23 03:48 08/02/23 03:48 Other Labs: Laboratory Last Values WBC 11.05 10^3/uL (3.29-11.43) 08/02/23 03:48 RBC 3.53 10^6/uL (3.85-5.65) L 08/02/23 03:48 Hgb 10.30 g/dL (11.27-16.99) L 08/02/23 03:48 Hct 31.1 % (37-53) L 08/02/23 03:48 MCV 88.1 fl (82-101) 08/02/23 03:48 MCH 29.2 pg (27-33) 08/02/23 03:48 MCHC 33.1 g/dL (30-55) 08/02/23 03:48 RDW 14.2 % (12.1-15.1) 08/02/23 03:48 Plt Count 182 10^3/cmm (157-399) 08/02/23 03:48 MPV 10.5 fL (7.4-10.4) H 08/02/23 03:48 Neut % (Auto) 67.9 % 08/02/23 03:48 Lymph % (Auto) 13.8 % 08/02/23 03:48 [place] % (Auto) 14.1 % 08/02/23 03:48 Eos % (Auto) 1.4 % 08/02/23 03:48 Baso % (Auto) 0.4 % 08/02/23 03:48 Neut # (Auto) 7.50 10^3/uL (1.8-7.7) 08/02/23 03:48 Lymph # (Auto) 1.5 10^3/uL (0.8-4.8) 08/02/23 03:48 [place] # (Auto) 1.6 10^3/uL (0.2-0.9) H 08/02/23 03:48 Eos # (Auto) 0.2 10^3/uL (0.0-0.8) 08/02/23 03:48 Baso # (Auto) 0.0 10^3/uL (0.0-0.1) 08/02/23 03:48 Nucleated RBC % (auto) 0 % 08/02/23 03:48 Nucleated RBCs # 0.0 /100WBC 08/02/23 03:48 PT 15.30 SECONDS (12.1-14.9) H 07/26/23 20:42 INR 1.17 (0.8-1.2) 07/26/23 20:42 APTT 59.8 SECONDS (23.9-36.7) H 08/01/23 03:50 D-Dimer 18.51 ug/mLFEU (0-0.59) H 07/27/23 00:00 Specimen Type Arterial 07/27/23 02:48 Sample Site Radial, left 07/27/23 02:48 ABG pH 7.43 (7.35-7.45) 07/27/23 02:48 ABG pCO2 33.2 mmHg (35-45) L 07/27/23 02:48 ABG pO2 64.1 mmHg (80.0-100.0) L 07/27/23 02:48 ABG PO2/FiO2 Ratio 0 07/27/23 02:48 ABG HCO3 22.1 mmol/L (22-26) 07/27/23 02:48 ABG Base Excess -1.5 mmol/L (-2.0-2.0) 07/27/23 02:48 Ortiz Test Pos 07/27/23 02:48 Hematocrit 44.4 % (42-52) 07/27/23 02:48 O2 Delivery Device Nc 07/27/23 02:48 FiO2 21.0 % 12/16/23 02:48 Business Advisor ID Rodriguez 07/27/23 02:48 Sodium 138 mmol/L (136-145) 08/02/23 03:48 Potassium 3.6 mmol/L (3.5-5.1) 08/02/23 03:48 Chloride 101 mmol/L (98-107) 08/02/23 03:48 Carbon Dioxide 26 mmol/L (22-29) 08/02/23 03:48 Anion Gap 14.6 (5-19) 08/02/23 03:48 BUN 24 mg/dL (8-23) H 08/02/23 03:48 Creatinine 1.3 mg/dL (0.7-1.2) H 08/02/23 03:48 GFR Calculation Not Reportable 08/02/23 03:48 Glucose 126 mg/dL (65-115) H 08/02/23 03:48 POC Glucose 119 mg/dL (70-110) H 08/02/23 00:31 Estimat Average Glucose 134 07/27/23 04:21 Hemoglobin A1c 6.3 % (4.0-6.0) H 07/27/23 04:21 Calculated Osmolality 292 mOsm/kg (285-295) 08/02/23 03:48 Lactic Acid 3.5 mmol/L (0.5-2.2) H 07/27/23 00:00 Lactic Acid (Sepsis) 3.8 mmol/L (0.5-2.2) H 07/27/23 04:21 Lactate 3.8 mmol/L (0.5-2.2) H 07/27/23 07:15 Calcium 8.1 mg/dL (8.5-10.5) L 08/02/23 03:48 Phosphorus 2.3 mg/dL (2.5-4.5) L 07/30/23 03:57 Magnesium 2.1 mg/dL (1.7-2.3) 07/30/23 03:57 Iron 9 ug/dL (59-158) L 07/27/23 04:21 TIBC 217 mcg/dl 07/27/23 04:21 % Saturation 4.1 % (20-50) L 07/27/23 04:21 Unsat Iron Binding 208 ug/dL (112-347) 07/27/23 04:21 Total Bilirubin 0.5 mg/dL (0.15-1.2) 08/02/23 03:48 AST 73 U/L (0-40) H 08/02/23 03:48 ALT 58 U/L (0-41) H 08/02/23 03:48 Alkaline Phosphatase 68 U/L (40-130) 08/02/23 03:48 Creatine Kinase 972 U/L (39-308) H* 08/01/23 03:50 Troponin T Baseline 236 ng/L (0-15) H* 07/27/23 04:21 Troponin T 120 Minute 219.8 ng/L (0-15) H 07/27/23 07:15 Delta Troponin T -16.2 ABS# (0-10) L 07/27/23 07:15 Troponin T Hi Sens 6Hr 170.1 ng/L (0-15) H 07/27/23 10:36 Troponin T Hi Sens 6Hr Delta -65.9 ng/L (0-12) L 07/27/23 10:36 C-Reactive Protein 103.4 mg/L (0.0-4.9) H 07/27/23 04:21 NT-Pro-B Natriuret Pep 5638 pg/mL (0-450) H 07/27/23 04:21 Total Protein 5.6 g/dL (6.6-8.7) L 08/02/23 03:48 Albumin 2.9 g/dL (3.5-5.2) L 08/02/23 03:48 Globulin 2.7 g/dL (1.3-4.6) 08/02/23 03:48 Triglycerides 175 mg/dL (0-150) H 07/28/23 05:00 Cholesterol 96 mg/dL (0-200) 07/28/23 05:00 LDL Cholesterol, Calc 37 mg/dL (50-129) L 07/28/23 05:00 Total VLDL Cholesterol 35 mg/dL (0-30) H 07/28/23 05:00 HDL Cholesterol 24 mg/dL (60-100) L 07/28/23 05:00 Cholesterol/HDL Ratio 4.00 mg/dL (1.0-5.00) 07/28/23 05:00 Vitamin B12 287 pg/mL (232-1245) 07/27/23 04:21 Folate 4.6 ng/mL (4.5-32.2) 07/28/23 05:00 Procalcitonin 66.13 ng/mL (0-0.5) H 07/27/23 00:00 TSH 0.88 uIU/mL (0.27-4.20) 07/27/23 04:21 Urine Color Brown (Yellow) A 07/27/23 12:04 Urine Color Cancelled 07/27/23 12:04 Urine Appearance Cancelled 07/27/23 12:04 Urine Appearance Cloudy (CLEAR) A 07/27/23 12:04 Urine pH 5 (5-7) 07/27/23 12:04 Urine pH Cancelled 07/27/23 12:04 Ur Specific [place] 1.020 (1.005-1.030) 07/27/23 12:04 Ur Specific [place] Cancelled 07/27/23 12:04 Urine Protein 3+ (Negative) H 07/27/23 12:04 Urine Protein Cancelled 07/27/23 12:04 Urine Glucose (UA) Cancelled 07/27/23 12:04 Urine Glucose (UA) Norm (Normal) 07/27/23 12:04 Urine Ketones Cancelled 07/27/23 12:04 Urine Ketones Negative (Negative) 07/27/23 12:04 Urine Blood 3+ (Negative) H 07/27/23 12:04 Urine Blood Cancelled 07/27/23 12:04 Urine Nitrate Cancelled 07/27/23 12:04 Urine Nitrate Negative (Negative) 07/27/23 12:04 Urine Bilirubin 1+ (Negative) H 07/27/23 12:04 Urine Bilirubin Cancelled 07/27/23 12:04 Prot Sulfosalicylic Acd Cancelled 07/27/23 12:04 Urine Urobilinogen Cancelled 07/27/23 12:04 Urine Urobilinogen Norm mg/dL (Negative) 07/27/23 12:04 Ur Leukocyte Esterase 2+ (Negative) H 07/27/23 12:04 Ur Leukocyte Esterase Cancelled 07/27/23 12:04 Urine RBC >100 /hpf (0-2) H 07/27/23 12:04 Urine WBC 25-40 /hpf (0-5) H 07/27/23 12:04 Ur Squamous Epith Cells None /hpf (0-5) 07/27/23 12:04 Amorphous Sediment Not Reportable 07/27/23 12:04 Urine Bacteria 2+ /hpf (NONE) H 07/27/23 12:04 Coarse Granular Casts 25-40 /lpf H 07/27/23 12:04 Nasal Influ A H1 2009 PCR Not detected (NOT DETECT) 07/27/23 01:20 Urine Opiates Screen Negative ng/mL (Negative) 07/27/23 12:04 Ur Barbiturates Screen Negative ng/mL (Negative) 07/27/23 12:04 Ur Phencyclidine Scrn Negative ng/mL (Negative) 07/27/23 12:04 Ur Amphetamines Screen Negative ng/mL (Negative) 07/27/23 12:04 U Benzodiazepines Scrn Negative ng/mL (Negative) 07/27/23 12:04 Urine Cocaine Screen Negative ng/mL (Negative) 07/27/23 12:04 U Marijuana (THC) Screen Negative ng/mL (Negative) 07/27/23 12:04 Adenovirus (PCR) Not detected (NOT DETECT) 07/27/23 01:20 C. pneumoniae DNA (PCR) Not detected (NOT DETECT) 07/27/23 01:20 C. difficile Tox (PCR) Cancelled 07/27/23 20:36 Coronavirus 229E (PCR) Not detected (NOT DETECT) 07/27/23 01:20 Human Metapneumovir PCR Not detected (NOT DETECT) 07/27/23 01:20 Influenza A (H1) PCR Not detected (NOT DETECT) 07/27/23 01:20 Influenza A (H3) PCR Not detected (NOT DETECT) 07/27/23 01:20 Influenza Type A (PCR) Not detected (NOT DETECT) 07/27/23 01:20 Influenza Type B (PCR) Not detected (NOT DETECT) 07/27/23 01:20 M. pneumoniae (PCR) Not detected (NOT DETECT) 07/27/23 01:20 Parainfluenza 1 (PCR) Not detected (NOT DETECT) 07/27/23 01:20 Parainfluenza 2 (PCR) Not detected (NOT DETECT) 07/27/23 01:20 Parainfluenza 3 (PCR) Not detected (NOT DETECT) 07/27/23 01:20 Parainfluenza 4 (PCR) Not detected (NOT DETECT) 07/27/23 01:20 RSV Type A (PCR) Not detected (NOT DETECT) 07/27/23 01:20 RSV Type B (PCR) Not detected (NOT DETECT) 07/27/23 01:20 Entero/Rhino (PCR) Not detected (NOT DETECT) 07/27/23 01:20 SARS-CoV-2 (PCR) Not detected (NOT DETECT) 07/27/23 01:20 MRSA (PCR) Not detected (NOT DETECTED) 07/27/23 14:10 Blood Type O Positive 08/02/23 01:45 Rho(D) Type Rh positive 08/02/23 01:45 Antibody Screen Negative 08/02/23 01:45 Crossmatch See Detail 08/02/23 01:45 Micro: Microbiology 07/28/23 05:00 Blood Culture - Final Blood NO GROWTH AFTER 5 DAYS 07/28/23 05:00 Blood Culture - Final Blood NO GROWTH AFTER 5 DAYS 07/27/23 04:21 Blood Culture - Final Blood Escherichia coli A&P Assessment and plan (1) Elevated troponin: Because of the patient's multiple other medical problems and also since that he has no specific symptoms of coronary insufficiency, it may be appropriate to hold off on the Myocardial perfusion imaging for the time being. This may be done as an outpatient. Because of GI bleed, it would be appropriate to hold off on the Plavix for the time being. May be restarted when it is appropriate (2) Syncope and collapse: This could be multifactorial. Vasovagal reaction, hypotension, cardiac arrhythmia, etc. are considerations. Patient needs to be closely monitored on telemetry. Adequate hydration would be appropriate. Coronary ischemia causing this also is a consideration. No significant arrhythmias on the monitor so far. Pulmonary embolism is being considered. Patient had a VQ scan today and was found to be low probability for PE (3) Acute kidney insufficiency: The exact etiology is not clear. The BUN/creatinine levels seems to be fairly stable and improved at this point. May continue on the current measures. (4) Elevated brain natriuretic peptide (BNP) level: The heart failure is fairly compensated at this time. May continue on the current measures. The Lasix may be given on a as needed basis. (5) Bacterial infection due to E. coli: Patient is responding to the antibiotic. The white cell count is back to normal. 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 coli A49.8
[2023-08-02] MEDS: FUROsemide 10 mg/mL SDV 2mL 20 MG IVP (18:06)
--- NOTE | 2023-08-02 18:09 | P.PN_ITS ---
Subjective 2 Medications: Medication Review Details: Current Medications Acetaminophen (Acetaminophen 500 Mg Tablet) 500 mg PO Q4H PRN PRN Reason: fever Last Admin: 08/02/23 09:53 Dose: 500 mg Albuterol/Ipratropium (Ipratropium-Albuterol 3 Ml Neb) 3 ml INHALATION Q6H PRN PRN Reason: SHORTNESS OF BREATH Last Admin: 07/27/23 11:55 Dose: 3 ml Aspirin (Aspirin 81 Mg Ec Tablet) 81 mg PO DAILY SANDEE Last Admin: 08/02/23 08:09 Dose: Not Given Atorvastatin Calcium (Atorvastatin 40 Mg Tablet) 80 mg PO BEDTIME SANDEE Last Admin: 08/01/23 23:06 Dose: 80 mg Budesonide (Budesonide 0.5 Mg/2 Ml Neb) 0.5 mg INHALATION BID.RESPIRATORY SANDEE Last Admin: 08/02/23 13:19 Dose: Not Given Clopidogrel Bisulfate (Clopidogrel 75 Mg Tablet) 75 mg PO DAILY SANDEE Last Admin: 08/02/23 08:09 Dose: Not Given Heparin Sodium (Porcine) (Heparin 5,000 Unit/Ml Inj 1 Ml) 0 unit IV PRN PRN; Protocol PRN Reason: Heparin weight-base protocol Last Admin: 07/29/23 03:01 Dose: 2,200 unit Hydralazine HCl (Hydralazine 50 Mg Tablet) 50 mg PO TID SANDEE Last Admin: 08/02/23 15:41 Dose: 50 mg Sodium Chloride (Sodium Chloride 0.9%) 1,000 mls @ 100 mls/hr IV .Q10H SANDEE Last Admin: 07/29/23 21:09 Dose: 100 mls/hr Heparin Sodium/Sodium Chloride (Heparin Drip) 25,000 unit in 500 mls @ 0 mls/hr IV .Q0M SANDEE; Protocol Last Titration: 08/01/23 05:31 Dose: 0 unit/kg/hr, 0 mls/hr Ceftriaxone Sodium 1,000 mg/ (Sodium Chloride) 50 mls @ 100 mls/hr IV Q24H SNADEE; Protocol Last Infusion: 08/02/23 03:31 Dose: Infused Lanolin (Lanolin Oint 7 Gm) 1 applic TOPICAL PRN PRN PRN Reason: DRYNESS Last Admin: 07/29/23 13:55 Dose: 1 applic Morphine Sulfate (Morphine 4 Mg/Ml Sdv 1 Ml) 4 mg IVP Q4H PRN PRN Reason: SEVERE PAIN Last Admin: 08/01/23 19:14 Dose: 4 mg Nystatin (Nystatin 100,000 Unit/Ml Udc 5 Ml) 400,000 unit PO QID SANDEE Last Admin: 08/02/23 12:40 Dose: 400,000 unit Ondansetron HCl (Ondansetron 2 Mg/Ml Sdv 2 Ml) 4 mg IVP Q6H PRN PRN Reason: NAUSEA AND VOMITING Simethicone (Simethicone 40 Mg/0.6 Ml Bottle 30ml) 40 mg PO BID PRN PRN Reason: FLATULENCE Last Admin: 07/31/23 11:29 Dose: 40 mg Sodium Chloride (Sodium Chloride 0.9% 100 Ml Bag) 50 ml IV PRN PRN PRN Reason: Blood transfusion prime and flush Stop: 08/03/23 01:20 Vitals/I&O/Wt Last Vital Signs Temp 99.0 F 08/02/23 16:00 Pulse 81 08/02/23 16:00 Resp 18 08/02/23 08:20 BP 159/73 08/02/23 16:00 Pulse Ox 97 08/02/23 16:00 O2 Del Method Room Air 08/02/23 16:00 08/02/23 08/02/23 08/02/23 06:59 14:59 22:59 Intake Total 690 / 2430 250 / 250 Output Total 825 / 3625 Balance -135 / -1195 250 / 250 Weight last 48 hrs Weight 114.532 kg Weight 115.921 kg Physical Exam 2 Narrative: Accompanied by family Up in a chair Const: COMMON NORMALS: patient oriented x3 and alert GENERAL APPEARANCE: c ooperative ORIENTATION/CONSCIOUSNESS: Yes awake HENMT: OTHER: Chapped lips, exchar at upper lips, no blisters or weeping. More dry appearing today. Small shallow ulcerations infero lateral to the L side mouth. Neck/C-Spine: COMMON NORMALS: no JVD Resp: COMMON NORMALS: normal respiratory effort and clear to auscultation bilaterally AUSCULTATION: clear to auscultation bilaterally Cardio: COMMON NORMALS: no JVD, regular rhythm, S1 normal heart sound present, S2 normal heart sound present and No murmurs present (Cardio) RHYTHM: regular rhythm HEART SOUNDS: S1 normal heart sound present and S2 normal heart sound present GI: COMMON NORMALS: Normal to inspection, nondistended, normoactive bowel sounds present, Soft to palpation and non-tender PALPATION: Yes Soft to palpation OTHER: Abdomen distended : OTHER: hematuria resolved Extremity: COMMON NORMALS: no joint enlargement and no pedal edema GENERAL: Yes edema (2+) OTHER: No redness of L hip. Some dependent edema. Neuro: COMMON NORMALS: patient oriented x3 and moves all extremities S ENSORIUM/ORIENTATION: Yes alert Skin: COMMON NORMALS: no rashes or lesions noted GENERAL SKIN EXAM: no rashes or lesions noted Urinary Catheter Management: Antoine: Cath Placed During This Visit: no Reason for Continuing Indwelling Catheter: Accurate Measurement of Urinary Output in Critically Ill Patients Data 08/02/23 03:48 08/02/23 03:48 Micro: Microbiology 07/28/23 05:00 Blood Culture - Final Blood NO GROWTH AFTER 5 DAYS 07/28/23 05:00 Blood Culture - Final Blood NO GROWTH AFTER 5 DAYS 07/27/23 04:21 Blood Culture - Final Blood Escherichia coli A&P Assessment and plan (1) Bacterial infection due to E. coli: (2) Sepsis: (3) Acute kidney insufficiency: (4) Dehydration: (5) Syncope and collapse: (6) D-dimer, elevated: (7) Cystitis: (8) Prostatitis: (9) Non-ST elevation NC (NSTEMI): (10) Elevated troponin: Plan Lower GI bleeding: Overnight hematochezia, reported about 675 mL red blood together with some clots later on. No abdominal pain or discomfort. No pelvic pain or discomfort. Reports does have history of diverticulosis on last colonoscopy about 7 years ago. Possibly diverticular bleed. Discussed with cardiology, aspirin Plavix held. Has been off anticoagulation. Hematuria has resolved. Reviewed hemoglobin, 10.3, repeat in the morning. Reviewed platelets, noted WNL at 182. Bleeding spontaneously resolved. Will benefit from further repeat colonoscopy, outpatient or if repeat rebleeding, consideration discussed for inpatient study. In case of loose stools, obtain stool studies. Discussed with casey saw operator. Severe left hip pain: Reviewed orthopedic note. Was reevaluated by orthopedics today. Pain so far has resolved. Reviewed vitals, WBC. WBC normal. Afebrile. Discussed unclear etiology of the fluid collection, possible initially small nidus of infection following bacteremia, possibly with component of hematoma while on anticoagulation. Anticoagulation had been held for another reason. Suspect fluid collection had stopped growing with holding of anticoagulation. With possibility of initial infection seeding, continue IV antibiotics. Follow- up symptoms. Consider interval reimaging. For now discussed only light ambulation bed to chair and back, limiting overexertion of the injured area. Hematuria: Now resolved. Abdominal distention: With improvement. Denies abdominal symptoms currently. Repeat CT abdomen pelvis was unremarkable. Lower extremity mostly better but still persistent. Repeat Lasix today. Removed lactose restriction per patient/family request. Simethicone drops. Discussed with casey saw operator During rounds. Oropharyngeal candidiasis: Improving with nystatin swish and swallow. Herpes labialis: Mild improvement with valacyclovir. Complete course. Less likely SJS, no other rash, lesions. Antibiotics haave been changed. Discontinued pantoprazole. Syncope and collapse: Underwent VQ scan today, reviewed results, low probability of PE. Continue SCDs. Heparin drip had been discontinued. Follow-up for stress testing. Could be in setting of sepsis versus possible non-ST elevation NC. Low probability PE. Echocardiogram as below. Monitor blood pressures. Keep mean artery pressure over 65. Elevated troponin/non-ST elevation NC: Nonemergent additional assessment with stress test. For now aspirin, Plavix as per discussion with cardiology and patient and family held due to GI bleed. Continue monitoring on telemetry and for symptoms changes. Echocardiogram w normal ejection fraction, no RWMA. Grade 1 diastolic dysfunction. With NSTEMI, MARY CARMEN on CKD, advanced age, possible PE, at elevated risk of complication, mortality. Monitor on CSU on telemetry. Fluid overload: With 2+ lower extremity edema. Repeat 20 mg IV Lasix. Monitor STEPHANIE. Monitor electrolytes due to risk of deficiency, check magnesium. Monitor on telemetry. Elevated CK: Questionable rhabdomyolysis, suspect more related to focal abnormality in the left thigh. Has continued on statin. Will recheck CK for Elevated D-dimer: VQ scan obtained, reviewed, low probability of PE. Heparin drip had to be held due to hematuria. Given syncope and collapse with mild subjective fever shortness of breath and hypoxia and hypercapnia on admission. Lower limb Doppler negative for DVT. MARY CARMEN: Reviewed BUN, creatinine, with continued gradual improvement, creatinine down to 1.3. Monitor BMP daily. E. coli bacteremia: Repeat blood reviewed, negative today. Continue ceftriaxone Complicated UTI. Resolved sepsis: Continue ceftriaxone. Most likely in setting of cystitis versus prostatitis. He is not having symptoms of prostatitis, however, is freshly after prostate biopsy. There are signs of cystitis although unclear that cystitis should lead to bacteremia. Certainly a complicated urinary tract infection. Reviewed urine culture, blood culture. Follow-up. Repeat CBC. Leukocytosis reviewed, noted improving. Hypertension: hydralazine. Iron deficiency anemia: iron supplementation. Monitor hemoglobin daily for now. Pulmicort and DuoNeb every 6 hours. CODE STATUS: Full code. But does not want to remain on mechanical ventilator for a long time. Renal nondialysis Attestations 2 Medical Necessity Statement*: Continue admission for additional assessment of lower GI bleeding, fluid overload, MARY CARMEN, recent NSTEMI, complicated UTI, additional comorbidities as above. Diagnoses Bacterial infection due to E. coli A49.8 Sepsis A41.9 Acute kidney insufficiency N28.9 Dehydration E86.0 Syncope and collapse R55 D-dimer, elevated R79.89 Cystitis N30.90 Prostatitis N41.9 Non-ST elevation NC (NSTEMI) I21.4 Elevated troponin R79.89
[2023-08-02] MEDS: atorvastatin 40 mg Tablet 80 MG PO (20:17)
[2023-08-03] VITALS (10 sets, daily range): BP systolic 128–176; BP diastolic 60–85; PULSE 78–98; RESP 16–33; TEMP 36.7–37.2; O2SAT 91–98
[2023-08-03] MEDS: cefTRIAXone 1,000 MG in sodium chloride 0.9% (plus) 50 ML 100 MG IV (00:04)
[2023-08-03 03:58] LABS: Basophils % 0.3 %; Eosinophils # 0.4 10^3/uL (0.0-0.8); Eosinophils % 3.2 %; Hematocrit 33.2 % (37-53); Lymphocytes # 1.6 10^3/uL (0.8-4.8); Lymphocytes % 13.4 %; Mean Corpuscular Hemoglobin 29.7 pg (27-33); Mean Corpuscular Volume 87.4 fl (82-101); Mean Platelet Volume 10.4 fL (7.4-10.4); Monocytes # 1.1 10^3/uL (0.2-0.9); Monocytes % 9.4 %; Neutrophils # 8.66 10^3/uL (1.8-7.7); Neutrophils % 71.6 %; Nucleated Red Blood Cells % 0 %; Platelet Count 238 10^3/cmm (157-399); Red Cell Distribution Width 13.9 % (12.1-15.1); White Blood Count 12.11 10^3/uL (3.29-11.43)
[2023-08-03 04:20] LABS: Alanine Aminotransferase 55 U/L (0-41); Alkaline Phosphatase 73 U/L (40-130); Anion Gap 13.3 (5-19); Aspartate Amino Transferase 67 U/L (0-40); Blood Urea Nitrogen 25 mg/dL (8-23); Calcium 8.2 mg/dL (8.5-10.5); Carbon Dioxide 26 mmol/L (22-29); Chloride 100 mmol/L (98-107); Globulin 2.7 g/dL (1.3-4.6); Glucose 168 mg/dL (65-115); Osmolality Calculated 290 mOsm/kg (285-295); Potassium 3.3 mmol/L (3.5-5.1); Sodium 136 mmol/L (136-145); Total Bilirubin 0.6 mg/dL (0.15-1.2); Total Protein 5.7 g/dL (6.6-8.7)
[2023-08-03 04:26] LABS: Creatine Phosphokinase 578 U/L (39-308)
[2023-08-03] MEDS: hyDRALAzine 50 mg Tablet PO ×3 (08:36→21:15)
[2023-08-03] MEDS: nystatin 100,000 unit/mL UDC 5 mL 400000 UNIT PO ×4 (08:38→21:15)
[2023-08-03] MEDS: lanolin oint 7 gm 1 APPLIC TOPICAL (08:42)
--- NOTE | 2023-08-03 09:26 | P.PN_ITS ---
Subjective 2 Subjective: Patient doing well. Denies chest pain. Has leg discomfort. Vitals/I&O/Wt Last Vital Signs Temp 98.9 F 08/03/23 07:17 Pulse 89 08/03/23 08:01 Resp 16 08/03/23 08:01 BP 158/79 08/03/23 07:17 Pulse Ox 98 08/03/23 08:01 O2 Del Method Room Air 08/03/23 08:01 08/02/23 08/03/23 08/03/23 22:59 06:59 14:59 Intake Total 3070 / 3320 270 / 3590 600 / 600 Output Total 2300 / 2300 250 / 2550 Balance 770 / 1020 20 / 1040 600 / 600 Weight last 48 hrs Weight 255 lb 6.4 oz Weight 252 lb 8 oz Physical Exam 2 Narrative: GENERAL: Patient is alert, awake and oriented x3. [] NECK: No jugular vein distension. [] HEENT: No cyanosis. No icterus. No pallor. [] HEART: Regular S1 and S2. No murmur, rub or gallop. [] LUNGS: Clear to auscultate bilaterally. [] CENTRAL NERVOUS SYSTEM: Grossly nonfocal. [] EXTREMITIES: Lower extremities with 1+ edema bilaterally. Urinary Catheter Management: Antoine: Cath Placed During This Visit: no Reason for Continuing Indwelling Catheter: Accurate Measurement of Urinary Output in Critically Ill Patients Data 08/07/23 04:10 08/07/23 04:10 Micro: Microbiology 07/28/23 05:00 Blood Culture - Final Blood NO GROWTH AFTER 5 DAYS 07/28/23 05:00 Blood Culture - Final Blood NO GROWTH AFTER 5 DAYS A&P Assessment and plan (1) Non-ST elevation [place] (NSTEMI): (2) Elevated troponin: Medical therapy at this time. Patient could not get the stress test. (3) Syncope and collapse: PE was ruled out. Could be vasovagal versus cardiac arrhythmias. Continue hydration. (4) Acute kidney insufficiency: Continue to monitor. (5) Elevated brain natriuretic peptide (BNP) level: Congestive heart failure is compensated at this time. (6) Bacterial infection due to E. coli: Management per primary team. Plan Plan for stress test as an outpatient. Attestations 2 Medical Necessity Statement*: Care expected to cross 2 midnights. Coding Level of Care Code Acute Code for Chg Fwd Diagnoses Non-ST elevation [place] (NSTEMI) I21.4 Elevated troponin R79.89 Syncope and collapse R55 Acute kidney insufficiency N28.9 Elevated brain natriuretic peptide (BNP) level R79.89 Bacterial infection due to E. coli A49.8
[2023-08-03] MEDS: acetaminophen 500 mg Tablet PO ×3 (10:01→21:22)
[2023-08-03] MEDS: potassium chloride ER 20 mEq Tablet 40 MEQ PO (10:02)
--- NOTE | 2023-08-03 12:11 | P.PN_ITS ---
Subjective 2 Subjective: She states she get a good night. He was able to get some sleep, woke up early in the morning, ambulated little bit in the room, then slept some more. No further hematochezia so far. No abdominal pain. No perineal pain. Lips are chapped and sore with eschar. Odynophagia with improvement. Left thigh pain at rest and with light activity. Mildly bothered him after some walking. Vitals/I&O/Wt Last Vital Signs Temp 98.1 F 08/03/23 11:40 Pulse 89 08/03/23 11:40 Resp 19 H 08/03/23 11:40 BP 153/78 08/03/23 11:40 Pulse Ox 93 08/03/23 11:40 O2 Del Method Room Air 08/03/23 11:40 08/02/23 08/03/23 08/03/23 22:59 06:59 14:59 Intake Total 3070 / 3320 270 / 3590 600 / 600 Output Total 2300 / 2300 250 / 2550 Balance 770 / 1020 20 / 1040 600 / 600 Weight last 48 hrs Weight 115.847 kg Weight 114.532 kg Physical Exam 2 Narrative: Accompanied by family Up in a chair Const: COMMON NORMALS: patient oriented x3 and alert GENERAL APPEARANCE: c ooperative ORIENTATION/CONSCIOUSNESS: Yes awake HENMT: COMMON NORMALS: oropharynx normal OTHER: Chapped lips, exchar, no blisters or weeping. Less edema, more eschar. Small shallow ulcerations infero lateral to the L side mouth. Neck/C-Spine: COMMON NORMALS: no JVD Resp: COMMON NORMALS: normal respiratory effort and clear to auscultation bilaterally AUSCULTATION: clear to auscultation bilaterally Cardio: COMMON NORMALS: no JVD, regular rhythm, S1 normal heart sound present, S2 normal heart sound present and No murmurs present (Cardio) RHYTHM: regular rhythm HEART SOUNDS: S1 normal heart sound present and S2 normal heart sound present GI: COMMON NORMALS: Normal to inspection, nondistended, normoactive bowel sounds present, Soft to palpation and non-tender PALPATION: Yes Soft to palpation OTHER: Abdomen distention improved : OTHER: Hematuria resolved Extremity: COMMON NORMALS: no joint enlargement and no pedal edema GENERAL: Yes edema (2+) OTHER: No redness of L hip. Some dependent edema. Neuro: COMMON NORMALS: patient oriented x3 and moves all extremities S ENSORIUM/ORIENTATION: Yes alert Skin: COMMON NORMALS: no rashes or lesions noted GENERAL SKIN EXAM: no rashes or lesions noted Urinary Catheter Management: Antoine: Cath Placed During This Visit: no Reason for Continuing Indwelling Catheter: Accurate Measurement of Urinary Output in Critically Ill Patients Data 08/03/23 03:32 08/03/23 03:32 A&P Assessment and plan (1) Bacterial infection due to E. coli: (2) Sepsis: (3) Acute kidney insufficiency: (4) Dehydration: (5) Syncope and collapse: (6) D-dimer, elevated: (7) Cystitis: (8) Prostatitis: (9) Non-ST elevation AR (NSTEMI): (10) Elevated troponin: Plan Lower GI bleeding: So far without recurrence. Reviewed hemoglobin, noted 11.3. Discussed with him. Reviewed platelets, 238. Noted to have some leukocytosis today 12.1, possibly reactive after GI bleed. However, given everything else going on discussed with him we will repeat additional CBC in the morning. Follow-up hemoglobin. Follow-up outpatient for colonoscopy. Reports does have history of diverticulosis on last colonoscopy about 7 years ago. Possibly diverticular bleed. Discussed with cardiology, aspirin Plavix held. Has been off anticoagulation. Hematuria has resolved. Bleeding spontaneously resolved. Will benefit from further repeat colonoscopy, outpatient or if repeat rebleeding, consideration discussed for inpatient study. In case of loose stools, obtain stool studies. Leukocytosis: Noted some leukocytosis today up to 12.1. Possibly reactive due to GI bleed. However, with fluid collection left thigh, previously E. coli bacteremia, complicated UTI, discussed will reassess CBC. Monitor for any signs of recurrent infection. Complex fluid collection left thigh: Pain had improved. No pain at rest and with mild ambulation. Some pain if he exerts himself somewhat more. Some leukocytosis noted today. Will reassess. Monitor for any signs of infection. Left hand examination without any redness, some lower extremity edema persists, but this is bilateral. CK rechecked, noted lower, but still elevated over 500. Will decrease statin dose. Reviewed orthopedic note. Discussed unclear etiology of the fluid collection, possible initially small nidus of infection following bacteremia, possibly with component of hematoma while on anticoagulation. Anticoagulation had been held for another reason. Suspect fluid collection had stopped growing with holding of anticoagulation. With possibility of initial infection seeding, continue IV antibiotics. Follow- up symptoms. Consider interval reimaging. For now only light ambulation, limiting overexertion of the injured area. Possible rhabdomyolysis: CK rechecked, still over 500. Will decrease statin dose. Recheck CK. Fluid overload: Persistent edema lower extremities including thighs. Repeat IV Lasix. with 2+ lower extremity edema. Repeat 20 mg IV Lasix. Monitor STEPHANIE. Monitor electrolytes due to risk of deficiency, check magnesium. Monitor on telemetry. Hematuria: Now resolved. Abdominal distention: With improvement. Denies abdominal symptoms currently. Repeat CT abdomen pelvis was unremarkable. Lower extremity mostly better but still persistent. Repeat Lasix today. Removed lactose restriction per patient/family request. Simethicone drops. Discussed with disease case manager rn During rounds. Oropharyngeal candidiasis: Improving with nystatin swish and swallow. Herpes labialis: Slow improvement. Less erythema. More eschar. Small ulcerated lesions inferior lateral left side of mouth with improvement. Given extensive nature we will continue valacyclovir for now. Less likely SJS, no other rash, lesions. Antibiotics have been changed. Discontinued pantoprazole. Syncope and collapse: Underwent VQ scan today, reviewed results, low probability of PE. Continue SCDs. Heparin drip had been discontinued. Follow-up for stress testing. Could be in setting of sepsis versus possible non-ST elevation AR. Low probability PE. Echocardiogram as below. Monitor blood pressures. Keep mean artery pressure over 65. Elevated troponin/non-ST elevation AR: Nonemergent additional assessment with stress test. For now aspirin, Plavix as per discussion with cardiology and patient and family held due to GI bleed. Continue monitoring on telemetry and for symptoms changes. Echocardiogram w normal ejection fraction, no RWMA. Grade 1 diastolic dysfunction. With NSTEMI, MARY CARMEN on CKD, advanced age, possible PE, at elevated risk of complication, mortality. Monitor on CSU on telemetry. Elevated D-dimer: VQ scan obtained, reviewed, low probability of PE. Heparin drip had to be held due to hematuria. Given syncope and collapse with mild subjective fever shortness of breath and hypoxia and hypercapnia on admission. Lower limb Doppler negative for DVT. MARY CARMEN: Reviewed BUN, creatinine, with over improvement. Creatinine down to 1.3 Monitor BMP daily. E. coli bacteremia: Repeat blood reviewed, negative today. Continue ceftriaxone Complicated UTI. Resolved sepsis: Continue ceftriaxone. Most likely in setting of cystitis versus prostatitis. He is not having symptoms of prostatitis, however, is freshly after prostate biopsy. There are signs of cystitis although unclear that cystitis should lead to bacteremia. Certainly a complicated urinary tract infection. Reviewed urine culture, blood culture. Follow-up. Repeat CBC. Leukocytosis recurred Hypertension: hydralazine. Iron deficiency anemia: iron supplementation. Monitor hemoglobin daily for now. Pulmicort and DuoNeb every 6 hours. CODE STATUS: Full code. But does not want to remain on mechanical ventilator for a long time. Renal nondialysis Attestations 2 Medical Necessity Statement*: Continue admission for additional assessment of worsening leukocytosis in angiomata with complex fluid collection in the thigh, recent bacteremia complicated UTI, lower GI bleeding, fluid overload, MARY CARMEN, recent NSTEMI, additional comorbidities as above. Diagnoses Bacterial infection due to E. coli A49.8 Sepsis A41.9 Acute kidney insufficiency N28.9 Dehydration E86.0 Syncope and collapse R55 D-dimer, elevated R79.89 Cystitis N30.90 Prostatitis N41.9 Non-ST elevation AR (NSTEMI) I21.4 Elevated troponin R79.89
[2023-08-03] MEDS: valACYclovir 1,000 mg Tablet 1000 MG PO ×2 (13:01→21:14)
[2023-08-03] MEDS: FUROsemide 10 mg/mL SDV 4mL 40 MG IVP (13:01)
[2023-08-03] MEDS: vancomycin 1,500 MG/300 ML PIGGYBACK 200 MG IV (17:36)
[2023-08-03] MEDS: atorvastatin 40 mg Tablet PO (21:15)
[2023-08-04] VITALS (10 sets, daily range): BP systolic 148–189; BP diastolic 67–85; PULSE 79–97; RESP 16–30; TEMP 36.5–36.9; O2SAT 92–97
[2023-08-04] MEDS: cefTRIAXone 1,000 MG in sodium chloride 0.9% (plus) 50 ML 100 MG IV (00:03)
[2023-08-04 02:49] LABS: Basophils # 0.1 10^3/uL (0.0-0.1); Basophils % 0.3 %; Eosinophils # 0.4 10^3/uL (0.0-0.8); Lymphocytes # 3.2 10^3/uL (0.8-4.8); Lymphocytes % 17.4 %; Mean Corpuscular HGB Conc 33.7 g/dL (30-55); Mean Corpuscular Hemoglobin 29.6 pg (27-33); Mean Corpuscular Volume 87.7 fl (82-101); Mean Platelet Volume 9.9 fL (7.4-10.4); Monocytes # 1.5 10^3/uL (0.2-0.9); Monocytes % 8.1 %; Neutrophils # 12.96 10^3/uL (1.8-7.7); Neutrophils % 71.1 %; Nucleated Red Blood Cells % 0 %; Platelet Count 331 10^3/cmm (157-399); Red Blood Count 3.99 10^6/uL (3.85-5.65); White Blood Count 18.24 10^3/uL (3.29-11.43)
[2023-08-04 03:10] LABS: Alanine Aminotransferase 69 U/L (0-41); Albumin Level 3.4 g/dL (3.5-5.2); Alkaline Phosphatase 83 U/L (40-130); Anion Gap 15.6 (5-19); Aspartate Amino Transferase 73 U/L (0-40); Blood Urea Nitrogen 24 mg/dL (8-23); Calcium 8.4 mg/dL (8.5-10.5); Carbon Dioxide 26 mmol/L (22-29); Chloride 99 mmol/L (98-107); Globulin 3.3 g/dL (1.3-4.6); Glucose 125 mg/dL (65-115); Osmolality Calculated 290 mOsm/kg (285-295); Potassium 3.6 mmol/L (3.5-5.1); Sodium 137 mmol/L (136-145); Total Bilirubin 0.7 mg/dL (0.15-1.2); Total Protein 6.7 g/dL (6.6-8.7)
[2023-08-04] MEDS: nystatin 100,000 unit/mL UDC 5 mL 400000 UNIT PO ×4 (09:04→20:29)
[2023-08-04] MEDS: hyDRALAzine 50 mg Tablet PO ×3 (09:05→20:29)
[2023-08-04] MEDS: valACYclovir 1,000 mg Tablet 1000 MG PO ×2 (09:05→20:29)
--- NOTE | 2023-08-04 10:13 | CTR_ITS ---
PROCEDURE INFORMATION: Exam: CT Left Lower Extremity With Contrast; Thigh Exam date and time: 08/04/2023 11:21 AM Age: 88 years old Clinical indication: Pain; Thigh; Left; Additional info: Possible abscess TECHNIQUE: Imaging protocol: CT of the left lower extremity with intravenous contrast was performed. Exam focused on the thigh. Radiation optimization: All CT scans at this facility use at least one of these dose optimization techniques: automated exposure control; mA and/or kV adjustment per patient size (includes targeted exams where dose is matched to clinical indication); or iterative reconstruction. Contrast material: OMNI 350; Contrast volume: 50 ml; Contrast route: INTRAVENOUS (IV); REPORTING DATA: Count of CT and Cardiac NM exams in prior 12 months: This patient has received 3 known CTs and 0 known cardiac nuclear medicine studies in the 12 months prior to the current study. COMPARISON: [place] [id number] 07/27/2023 10:23 AM RADIATION DOSE METRICS: Total DLP (mGy-cm): 1015.46 FINDINGS: Bones/joints: Mild degenerative change of the left hip and sacroiliac joint. Soft tissues: There is infiltration of fat planes between muscles of the proximal thigh. There is also in homogeneous low-attenuation of the left medial thigh musculature. No discrete fluid collection or mass is seen. Some skin thickening is also present. Vasculature: No evidence of vascular thrombosis. Other findings: See accompanying CT abdomen pelvis for pelvic abnormalities. CT/CT femur LT w con [id number] IMPRESSION: Edematous changes of medial muscle group and generalized fat planes of the left thigh most consistent with cellulitis in absence of traumatic history. No discrete fluid collection or mass. Clinical correlation recommended.
--- NOTE | 2023-08-04 10:46 | CTR_ITS ---
PROCEDURE INFORMATION: Exam: CT Abdomen And Pelvis With Contrast Exam date and time: 08/04/2023 11:15 AM Age: 88 years old Clinical indication: Abdominal tenderness; Additional info: Include pelvis - recent prostate biopsy, bacteremia TECHNIQUE: Imaging protocol: Computed tomography of the abdomen and pelvis with contrast. Radiation optimization: All CT scans at this facility use at least one of these dose optimization techniques: automated exposure control; mA and/or kV adjustment per patient size (includes targeted exams where dose is matched to clinical indication); or iterative reconstruction. Contrast material: OMNI 350; Contrast volume: 85 ml; Contrast route: INTRAVENOUS (IV); REPORTING DATA: Count of CT and Cardiac NM exams in prior 12 months: This patient has received 3 known CTs and 0 known cardiac nuclear medicine studies in the 12 months prior to the current study. COMPARISON: CT abdomen pelvis wo con [id number] 07/31/2023 3:18 PM RADIATION DOSE METRICS: Total DLP (mGy-cm): 1199.42 FINDINGS: Lungs: See Pleural spaces finding. Pleural spaces: Unchanged 5 mm nodule at the pleural surface of the left lower lobe posterolaterally on series 4, image 10 and 3 mm nodule at the left lung base anterolaterally on the same image compared with CT chest abdomen pelvis of 07/27/2023. Lobulated structure contiguous with the right interlobar fissure on series 4, image 1 with elongated morphology measuring up to 1.6 by 0.6 cm, Also unchanged. Coronary arteries: Coronary artery calcifications. Mediastinal space: Mural thickening distal thoracic esophagus. Diaphragm: Small hiatal hernia. Liver: Findings suggestive of fatty change of the liver, a diagnosis of limited specificity on contrast enhanced CT. Gallbladder and bile ducts: Prior cholecystectomy. No biliary dilatation. Pancreas: No significant pancreatic pathology. Spleen: No significant splenic pathology. Adrenal glands: No significant adrenal pathology. Kidneys and ureters: Benign-appearing renal cysts are present. Subcentimeter renal cortical hypodensities, indeterminate criteria but statistically most likely representing cysts. Stomach and bowel: Colonic diverticulosis without evidence of focal inflammatory change. Appendix: Appendix within normal limits. Intraperitoneal space: No ascites. No free air. Vasculature: No abdominal aortic aneurysm. 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 No enlarged nodes by criteria. Urinary bladder: Urinary bladder is decompressed by Antoine catheter limiting assessment of the wall which appears thickened. Interval resolution of mild perivesical fat infiltration. Reproductive: Moderate prostatomegaly. Bones/joints: Marked degenerative change present in the spine. Soft tissues: Moderate bilateral fat containing inguinal hernias. CT/CT abdomen pelvis w con* [id number] IMPRESSION: 1. No acute abdominopelvic pathology. Interval resolution of mild perivesical fat infiltration seen on prior CT. Antoine catheter remains in place . 2. Stable basilar pulmonary nodules and right lower lung zone perifissural abnormality compared with recent chest CT. Given the largest lesion measuring up to 1.6 cm, three-month follow-up recommended according to Fleischner criteria. 3. Minor findings described above. COMMENTS: Consistent with the [employer]'s Incidental Findings Committee white paper (J Am Hector Radiol 2018): Any incidental renal lesion less than 1 cm or classified as too small to characterize, or any incidental cystic renal lesion characterized as simple-appearing, is likely benign. No follow-up imaging is recommended for these lesions per consensus recommendations based on imaging criteria.
--- NOTE | 2023-08-04 10:54 | P.PN_ITS ---
Subjective 2 Subjective: Patient sitting up in chair at this time has some increasing pain in his left hip area. Vitals/I&O/Wt Last Vital Signs Temp 98.3 F 08/04/23 04:00 Pulse 82 08/04/23 08:00 Resp 16 08/04/23 08:00 BP 168/80 08/04/23 04:00 Pulse Ox 97 08/04/23 08:00 O2 Del Method Room Air 08/04/23 08:00 08/03/23 08/04/23 08/04/23 22:59 06:59 14:59 Intake Total 596.8 / 1196.8 450 / 1646.8 Output Total 800 / 2100 Balance 596.8 / -103.2 -350 / -453.2 Weight last 48 hrs Weight 254 lb 6.4 oz Weight 255 lb 6.4 oz Physical Exam 2 Narrative: Patient has increasing bruising and redness in his medial groin area. This was not present yesterday morning. Patient had an increase in his white count as well. Urinary Catheter Management: Antoine: Cath Placed During This Visit: no Reason for Continuing Indwelling Catheter: Accurate Measurement of Urinary Output in Critically Ill Patients Data 08/04/23 02:31 08/04/23 02:31 A&P Assessment and plan (1) Hip pain, acute: Will order a CT scan of the pelvis and femur with contrast to evaluate potential abscess versus hematoma. Suspicious of infection with elevated white count. Qualifiers: Laterality: right Qualified Code(s): M25.551 - Pain in right hip Attestations 2 Medical Necessity Statement*: Elevated white count. Per primary service primary service Coding Level of Care Code Acute Code for Chg Fwd Diagnoses Acute pain of right hip M25.551 Laterality: right
[2023-08-04] MEDS: iohexol 350 mg/mL 500 mL Btl (per mL) IV ×2 (11:20)
--- NOTE | 2023-08-04 11:51 | P.CONIM_ITS ---
Providers/Reason For Consult 2 Consulting Physician/Specialty*: Hospitalist Reason for Consult*: Left thigh bruising with increased in white count Attending Physician: Brody Gonzalez Primary Care Provider: nAy Hill MD History of Present Illness History of Present Illness [facility]ey is a 88 year old male with a complex past medical history. The patient's been in the hospital for an E. coli bacteremia. The patient was on broad-spectrum antibiotics and then this is subsequently been narrowed. Over the last couple days the patient's white blood cell count has been increasing. His white blood cell count is approximate 18,[address] scan of the left thigh, abdomen and pelvis was performed. I believe the patient has either a myositis or possibly an intramuscular abscess. The patient states that his leg is really not hurting him at this time. He has had some intermittent pain. He has some bruising. He denies fever or chills. He denies nausea or vomiting. The patient has not been up and ambulatory. Review of Systems 2 General: Reports: 10 or more systems reviewed and unremarkable except in HPI and below Medications/Allergies Home Medications Medication Instructions Recorded Confirmed Last Taken Type budesonide-formoterol HFA 160 2 puff inhalation BID 12/02/19 07/27/23 Unknown History mcg-4.5 mcg/actuation aerosol inhaler (Symbicort) ondansetron HCl 4 mg tablet 4 mg PO Q12H 5 days #10 tabs 07/26/23 Unknown Rx aspirin 81 mg chewable tablet 81 mg PO DAILY 07/28/23 07/28/23 Unknown History fluticasone 250 mcg-salmeterol 50 1 inh inhalation BID 07/28/23 07/28/23 Unknown History mcg/dose blistr powdr for inhalation (Wixela Inhub) furosemide 20 mg tablet 20 mg PO DAILY 07/28/23 07/28/23 Unknown History losartan 50 mg tablet 75 mg PO DAILY 07/28/23 07/28/23 Unknown History metoprolol succinate 25 mg 25 mg PO DAILY 07/28/23 07/28/23 Unknown History tablet,extended release 24 hr Allergies Allergy/AdvReac Type Severity Reaction Status Date / Time ciprofloxacin [From Cipro] Allergy RASH Verified 12/02/19 13:32 Current Medications Generic Name Dose Route Start Last Admin Trade Name Freq PRN Reason Stop Dose Admin Acetaminophen 500 mg 07/27/23 01:15 08/03/23 21:22 Acetaminophen 500 Mg Tablet PO 500 mg Q4H PRN Administration fever Albuterol/Ipratropium 3 ml 07/27/23 01:15 07/27/23 11:55 Ipratropium-Albuterol 3 Ml Neb INHALATION 3 ml Q6H PRN Administration SHORTNESS OF BREATH Aspirin 81 mg 07/27/23 09:00 08/02/23 08:09 Aspirin 81 Mg Ec Tablet PO Not Given DAILY SANDEE Atorvastatin Calcium 40 mg 08/03/23 21:00 08/03/23 21:15 Atorvastatin 40 Mg Tablet PO 40 mg BEDTIME SANDEE Administration Clopidogrel Bisulfate 75 mg 07/27/23 09:00 08/02/23 08:09 Clopidogrel 75 Mg Tablet PO Not Given DAILY SANDEE Hydralazine HCl 50 mg 08/01/23 21:00 08/04/23 09:05 Hydralazine 50 Mg Tablet PO 50 mg TID SANDEE Administration Sodium Chloride 1,000 mls @ 100 mls/hr 07/27/23 01:15 07/29/23 21:09 Sodium Chloride 0.9% IV 100 mls/hr .Q10H SANDEE Administration Ceftriaxone Sodium 1,000 mg/ 50 mls @ 100 mls/hr 07/29/23 23:45 08/04/23 00:47 Sodium Chloride IV Infused Q24H SANDEE Infusion Protocol Vancomycin/PEG/NADA/Lysine/Water 1,500 mg in 300 mls @ 200 mls/hr 08/03/23 17:00 08/03/23 19:16 Vancocin IV Infused Q24H SANDEE Infusion Lanolin 1 applic 07/29/23 03:27 08/03/23 08:42 Lanolin Oint 7 Gm TOPICAL 1 applic PRN PRN Administration DRYNESS Morphine Sulfate 4 mg 08/01/23 10:19 08/01/23 19:14 Morphine 4 Mg/Ml Sdv 1 Ml IVP 4 mg Q4H PRN Administration SEVERE PAIN Nystatin 400,000 unit 07/31/23 09:00 08/04/23 09:04 Nystatin 100,000 Unit/Ml Udc 5 Ml PO 400,000 unit QID SANDEE Administration Simethicone 40 mg 07/30/23 23:10 07/31/23 11:29 Simethicone 40 Mg/0.6 Ml Bottle 30ml PO 40 mg BID PRN Administration FLATULENCE Valacyclovir HCl 1,000 mg 08/03/23 12:20 08/04/23 09:05 Valacyclovir 1,000 Mg Tablet PO 1,000 mg BID@0900,2100 SANDEE Administration PFSH Acute 2 PFSH: Medical History HTN (hypertension) Surgical History History of cholecystectomy Social History Smoking and tobacco/nicotine status: never used tobacco/nicotine Alcohol intake: never Substance/Drug Use: never Vitals/I&O/Wt Last Vital Signs Temp 98.3 F 08/04/23 04:00 Pulse 81 08/04/23 08:00 Resp 16 08/04/23 08:00 BP 168/80 08/04/23 04:00 Pulse Ox 97 08/04/23 08:00 O2 Del Method Room Air 08/04/23 08:00 08/03/23 08/04/23 08/04/23 22:59 06:59 14:59 Intake Total 596.8 / 1196.8 450 / 1646.8 118 / 118 Output Total 800 / 2100 Balance 596.8 / -103.2 -350 / -453.2 118 / 118 Weight last 48 hrs Weight 254 lb 6.4 oz Weight 255 lb 6.4 oz Physical Exam 2 Narrative: General: No acute distress. The patient has some bruising on his lips. Lungs: Clear to auscultation Heart: Regular rate and rhythm Abdomen: Morbidly obese soft nontender without masses. There is no hernias that I can appreciate Extremities: Left leg: The patient has a large amount of ecchymosis on the medial aspect of his left leg. This is slightly increased in warmth. There is really no tenderness. I do not appreciate any fluctuance. There is no fluid wave. I really do not appreciate a discrete mass. The patient has good distal pulses in both legs. Neurologic: The patient is awake, alert, and oriented x 3. His Charles Coma Scale is 15. The patient moves all 4 extremities without difficulty. Urinary Catheter Management: Antoine: Cath Placed During This Visit: no Reason for Continuing Indwelling Catheter: Accurate Measurement of Urinary Output in Critically Ill Patients Data 08/04/23 02:31 08/04/23 02:31 Attestation for Other Data: I personally reviewed and interpreted the following: (I reviewed all the patient's labs for today as well as a CT scan of his abdomen and pelvis and left thigh) A&P Assessment and plan (1) Hip pain, acute: I spoke with the hospitalist. I believe this patient has either an abscess in his left thigh or a myositis. On the CT scan I really do not see a discrete fluid collection. Would broaden the patient's antibiotics. Will see whether we can treat this nonoperatively. I spoke with the patient and his family at the bedside. I explained to them that I think we can treat this with nonoperative management. They are in agreement. If the patient develops an increasing white count in the spite of adequate IV antibiotics and the patient develops more pain and a discrete fluid collection will consider operative versus percutaneous intervention. Qualifiers: Laterality: right Qualified Code(s): M25.551 - Pain in right hip Coding Level of Care Code 76406 Diagnoses Acute pain of right hip M25.551 Laterality: right
[2023-08-04] MEDS: meropenem 500 MG in sodium chloride 0.9% (plus) 50 ML 100 MG IV ×2 (13:47→21:38)
[2023-08-04] MEDS: acetaminophen 500 mg Tablet PO (14:18)
--- NOTE | 2023-08-04 14:34 | P.PN_ITS ---
Subjective 2 Subjective: No new changes today. Overall not bothered by any pain in his left thigh, abdomen if he walks on a little bit more. There is swelling, some redness, bruising, petechiae over the left medial thigh. No further hematochezia. No worsening of abdominal bloating. Improvement in odynophagia. Persistence of irritated chapped, eschar on the lips, no spread to other areas. Vitals/I&O/Wt Last Vital Signs Temp 98.2 F 08/04/23 12:00 Pulse 97 08/04/23 12:00 Resp 23 H 08/04/23 12:00 BP 148/76 08/04/23 12:00 Pulse Ox 96 08/04/23 12:00 O2 Del Method Room Air 08/04/23 12:00 08/03/23 08/04/23 08/04/23 22:59 06:59 14:59 Intake Total 596.8 / 1196.8 450 / 1646.8 168 / 168 Output Total 800 / 2100 850 / 850 Balance 596.8 / -103.2 -350 / -453.2 -682 / -682 Weight last 48 hrs Weight 115.394 kg Weight 115.847 kg Physical Exam 2 Narrative: Accompanied by family Up in a chair Const: COMMON NORMALS: patient oriented x3 and alert GENERAL APPEARANCE: c ooperative ORIENTATION/CONSCIOUSNESS: Yes awake HENMT: COMMON NORMALS: oropharynx normal OTHER: Chapped lips, eschar, no blisters or weeping. Less edema, more eschar. Small shallow ulcerations infero lateral to the L side mouth. Neck/C-Spine: COMMON NORMALS: no JVD Resp: COMMON NORMALS: normal respiratory effort and clear to auscultation bilaterally AUSCULTATION: clear to auscultation bilaterally Cardio: COMMON NORMALS: no JVD, regular rhythm, S1 normal heart sound present, S2 normal heart sound present and No murmurs present (Cardio) RHYTHM: regular rhythm HEART SOUNDS: S1 normal heart sound present and S2 normal heart sound present GI: COMMON NORMALS: Normal to inspection, nondistended, normoactive bowel sounds present, Soft to palpation and non-tender PALPATION: Yes Soft to palpation OTHER: Abdomen distention improved : OTHER: Hematuria resolved Extremity: COMMON NORMALS: no joint enlargement and no pedal edema GENERAL: Yes edema (2+) OTHER: Area of bruise, mild erythema, swelling, petechiae on the medial left thigh upper portion of the left medial thigh closer to the groin with yellow discoloration. Neuro: COMMON NORMALS: patient oriented x3 and moves all extremities S ENSORIUM/ORIENTATION: Yes alert Skin: COMMON NORMALS: no rashes or lesions noted GENERAL SKIN EXAM: no rashes or lesions noted Urinary Catheter Management: Antoine: Cath Placed During This Visit: no Reason for Continuing Indwelling Catheter: Accurate Measurement of Urinary Output in Critically Ill Patients Data 08/04/23 02:31 08/04/23 02:31 A&P Assessment and plan (1) Bacterial infection due to E. coli: (2) Sepsis: (3) Acute kidney insufficiency: (4) Dehydration: (5) Syncope and collapse: (6) D-dimer, elevated: (7) Cystitis: (8) Prostatitis: (9) Non-ST elevation [place] (NSTEMI): (10) Elevated troponin: Plan Complex fluid collection left thigh: Since yesterday also developed bruising, mild erythema, petechiae, swelling over the medial left thigh, today superior portion closer to the groin is yellow in color. He is, however, having worsened leukocytosis 18.24. Yesterday I was told that MRI will be able to be performed to further assess his thigh, but it appears today that MRI could not be done. Discussed with orthopedics. Pursuing CT contrast study of the left thigh, and added pelvis as well given recent prostate biopsy and bacteremia. Case was also discussed with general surgeon who is evaluating patient as well, per discussion with surgeon we will broaden his antibiotic coverage, continue vancomycin, stop ceftriaxone, switch to meropenem. Reviewed CT femur, pelvis. No obvious fluid collection. Some soft tissue swelling, possible cellulitis, but from appearance clinically appears possibly some permeation of the previously collected possible hematoma, still difficult to exclude whether the initial trigger for the hematoma could have been a focus/nidus of infection after bacteremia. He is additionally having a headache today, will further assess CT head to exclude any hemorrhage. Additionally for now we will hold statin entirely. Encouraged to avoid overexertion, only mild ambulation. Reviewed orthopedic note. Reviewed general surgery note. Follow-up vitals. Repeat CBC. Consider interval reimaging. For now only light ambulation, limiting overexertion of the injured area. Lower GI bleeding: Reviewed hemoglobin, 11.8. So far without recurrence of any hematochezia. Reviewed platelets, and are WNL. Additional CBC in the morning. Follow-up hemoglobin. He is now also having loose stools. Will request for C. difficile. Follow-up outpatient for colonoscopy. Reports does have history of diverticulosis on last colonoscopy about 7 years ago. Possibly diverticular bleed. Discussed with cardiology, aspirin Plavix held. Has been off anticoagulation. Hematuria has resolved. Bleeding spontaneously resolved. Will benefit from further repeat colonoscopy, outpatient or if repeat rebleeding, consideration discussed for inpatient study. Leukocytosis: Worsening leukocytosis today, up to 18.2, predominantly neutrophilic on review. Stop ceftriaxone. Will broaden the coverage with meropenem -monitor for any seizure-like activity with risk of seizure. Continue vancomycin. Additional reassessment of left thigh swelling, bruising, mild erythema, petechiae as above. Assess stool studies as above. CT pelvis reviewed, noted moderate prostatomegaly, no prostatic abscess. Repeat blood cultures have also been obtained. Follow-up. Reviewed prior blood cultures, so far negative. Possible rhabdomyolysis: Rhabdomyolysis versus myositis in the left CK elevation. For now hold statin entirely. Follow-up CK level. Fluid overload: Persistent edema lower extremities including thighs. Repeat IV Lasix. with 2+ lower extremity edema. Repeat 20 mg IV Lasix. Monitor STEPHANIE. Monitor electrolytes due to risk of deficiency, check magnesium. Monitor on telemetry. Hematuria: Now resolved. Abdominal distention: With improvement. Denies abdominal symptoms currently. Repeat CT abdomen pelvis was unremarkable. Lower extremity mostly better but still persistent. Repeat Lasix today. Removed lactose restriction per patient/family request. Simethicone drops. Discussed with assisted living care manager During rounds. Oropharyngeal candidiasis: Improving with nystatin swish and swallow. Herpes labialis: Slow improvement. Less erythema. More eschar. Small ulcerated lesions inferior lateral left side of mouth with improvement. Given extensive nature we will continue valacyclovir for now. Less likely SJS, no other rash, lesions. Antibiotics have been changed. Discontinued pantoprazole. Reviewed no other obvious medications that should be SPS, with his symptoms also being present though milder since pretty much the beginning of hospitalization as per patient and family. Monitor for any changes that may suggest SJS. Syncope and collapse: Underwent VQ scan today, reviewed results, low probability of PE. Continue SCDs. Heparin drip had been discontinued. Follow-up for stress testing. Could be in setting of sepsis versus possible non-ST elevation [place]. Low probability PE. Echocardiogram as below. Monitor blood pressures. Keep mean artery pressure over 65. Elevated troponin/non-ST elevation [place]: Nonemergent additional assessment with stress test. For now aspirin, Plavix as per discussion with cardiology and patient and family held due to GI bleed. Continue monitoring on telemetry and for symptoms changes. Echocardiogram w normal ejection fraction, no RWMA. Grade 1 diastolic dysfunction. With NSTEMI, MARY CARMEN on CKD, advanced age, possible PE, at elevated risk of complication, mortality. Monitor on CSU on telemetry. Elevated D-dimer: VQ scan obtained, reviewed, low probability of PE. Heparin drip had to be held due to hematuria. Given syncope and collapse with mild subjective fever shortness of breath and hypoxia and hypercapnia on admission. Lower limb Doppler negative for DVT. MARY CARMEN: Reviewed BUN, creatinine, with over improvement. Creatinine down to 1.3 Monitor BMP daily. E. coli bacteremia: Repeat blood reviewed, negative today. Antibiotics broadened as above. Complicated UTI. Resolved sepsis: Continue ceftriaxone. Most likely in setting of cystitis versus prostatitis. He is not having symptoms of prostatitis, however, is freshly after prostate biopsy. There are signs of cystitis although unclear that cystitis should lead to bacteremia. Certainly a complicated urinary tract infection. Reviewed urine culture, blood culture. Follow-up. Repeat CBC. Leukocytosis recurred Hypertension: hydralazine. Iron deficiency anemia: iron supplementation held for now while dealing with possible active infection. Monitor hemoglobin daily for now. Pulmicort and DuoNeb every 6 hours. CODE STATUS: Full code. But does not want to remain on mechanical ventilator for a long time. Renal nondialysis I causing the Attestations 2 Medical Necessity Statement*: Continue admission for additional assessment of worsening leukocytosis in angiomata with complex fluid collection in the thigh, recent bacteremia complicated UTI, lower GI bleeding, fluid overload, MARY CARMEN, recent NSTEMI, additional comorbidities as above. Diagnoses Bacterial infection due to E. coli A49.8 Sepsis A41.9 Acute kidney insufficiency N28.9 Dehydration E86.0 Syncope and collapse R55 D-dimer, elevated R79.89 Cystitis N30.90 Prostatitis N41.9 Non-ST elevation [place] (NSTEMI) I21.4 Elevated troponin R79.89
--- NOTE | 2023-08-04 14:40 | CTR_ITS ---
PROCEDURE INFORMATION: Exam: CT Head Without Contrast Exam date and time: 08/04/2023 4:59 PM Age: 88 years old Clinical indication: Pain; Headache not specified; Additional info: Headache, assess for any hemorrhage TECHNIQUE: Imaging protocol: Computed tomography of the head without contrast. Radiation optimization: All CT scans at this facility use at least one of these dose optimization techniques: automated exposure control; mA and/or kV adjustment per patient size (includes targeted exams where dose is matched to clinical indication); or iterative reconstruction. REPORTING DATA: Count of CT and Cardiac NM exams in prior 12 months: This patient has received 3 known CTs and 0 known cardiac nuclear medicine studies in the 12 months prior to the current study. COMPARISON: CT head thrombolytic [id number] 07/26/2023 7:32 PM RADIATION DOSE METRICS: Total DLP (mGy-cm): 1099.05 FINDINGS: Brain: Generalized moderate low-attenuation in the white matter most likely representing small vessel ischemic change. Unchanged left basilar ganglia lacunar infarct. Cerebral ventricles: Unremarkable for age. Paranasal sinuses: No significant pathology. Mastoid air cells: No significant pathology. Bones/joints: No significant pathology. Soft tissues: No significant pathology. CT/CT head wo con* [id number] IMPRESSION: No acute pathology or significant interval change.
[2023-08-04] MEDS: vancomycin 1,500 MG/300 ML PIGGYBACK 200 MG IV (18:28)
[2023-08-05] VITALS (15 sets, daily range): BP systolic 158–173; BP diastolic 71–80; PULSE 77–86; RESP 16–24; TEMP 36.7–37; O2SAT 95–98
[2023-08-05 02:45] LABS: Basophils # 0.1 10^3/uL (0.0-0.1); Basophils % 0.6 %; Eosinophils # 0.5 10^3/uL (0.0-0.8); Eosinophils % 3.7 %; Hematocrit 32.2 % (37-53); Lymphocytes # 2.2 10^3/uL (0.8-4.8); Lymphocytes % 16.1 %; Mean Corpuscular HGB Conc 33.5 g/dL (30-55); Mean Corpuscular Hemoglobin 30.2 pg (27-33); Mean Corpuscular Volume 89.9 fl (82-101); Mean Platelet Volume 9.6 fL (7.4-10.4); Monocytes # 1.1 10^3/uL (0.2-0.9); Monocytes % 7.5 %; Neutrophils # 9.91 10^3/uL (1.8-7.7); Neutrophils % 71.1 %; Nucleated Red Blood Cells % 0 %; Platelet Count 374 10^3/cmm (157-399); Red Blood Count 3.58 10^6/uL (3.85-5.65); Red Cell Distribution Width 14.1 % (12.1-15.1); White Blood Count 13.94 10^3/uL (3.29-11.43)
[2023-08-05 03:06] LABS: Alanine Aminotransferase 55 U/L (0-41); Albumin Level 3.1 g/dL (3.5-5.2); Alkaline Phosphatase 88 U/L (40-130); Anion Gap 12.7 (5-19); Aspartate Amino Transferase 50 U/L (0-40); Blood Urea Nitrogen 24 mg/dL (8-23); Calcium 8.1 mg/dL (8.5-10.5); Carbon Dioxide 25 mmol/L (22-29); Chloride 101 mmol/L (98-107); Globulin 2.3 g/dL (1.3-4.6); Glucose 136 mg/dL (65-115); Osmolality Calculated 286 mOsm/kg (285-295); Potassium 3.7 mmol/L (3.5-5.1); Sodium 135 mmol/L (136-145); Total Bilirubin 0.6 mg/dL (0.15-1.2); Total Protein 5.4 g/dL (6.6-8.7)
[2023-08-05 03:09] LABS: Creatine Phosphokinase 359 U/L (39-308)
[2023-08-05] MEDS: acetaminophen 500 mg Tablet PO ×2 (05:56→19:40)
[2023-08-05] MEDS: meropenem 500 MG in sodium chloride 0.9% (plus) 50 ML 100 MG IV ×3 (05:57→22:10)
[2023-08-05] MEDS: hyDRALAzine 50 mg Tablet PO ×3 (08:38→20:10)
[2023-08-05] MEDS: nystatin 100,000 unit/mL UDC 5 mL 400000 UNIT PO ×4 (08:38→20:11)
[2023-08-05] MEDS: valACYclovir 1,000 mg Tablet 1000 MG PO ×2 (08:39→20:10)
--- NOTE | 2023-08-05 09:31 | P.PN_ITS ---
Subjective 2 Subjective: This patient sitting up in a bedside chair. He states that he feels better. Medications: Reviewed: Yes Vitals/I&O/Wt Last Vital Signs Temp 98.0 F 08/05/23 09:22 Pulse 77 08/05/23 09:22 Resp 21 H 08/05/23 09:22 BP 158/78 08/05/23 09:22 Pulse Ox 98 08/05/23 09:22 O2 Del Method Room Air 08/05/23 09:22 08/04/23 08/05/23 08/05/23 22:59 06:59 14:59 Intake Total 1470 / 1638 50 / 1688 240 / 240 Output Total 800 / 1650 600 / 2250 Balance 670 / -12 -550 / -562 240 / 240 Weight last 48 hrs Weight 252 lb Weight 254 lb 6.4 oz Physical Exam 2 Narrative: Lungs: Clear to auscultation Heart: Regular rate and rhythm Abdomen: Somewhat obese but nontender Extremities: The patient has decreased erythema of his medial thigh. There is less ecchymosis. I believe this is improved. Urinary Catheter Management: Antoine: Cath Placed During This Visit: no Reason for Continuing Indwelling Catheter: Other Data 08/05/23 02:29 08/05/23 02:29 Micro: Microbiology 08/01/23 13:47 Blood Culture - Preliminary Blood 08/01/23 13:42 Blood Culture - Preliminary Blood A&P Assessment and plan (1) Hip pain, acute: I believe this patient has a myositis versus a intramuscular abscess. Will continue the patient on broad-spectrum antibiotics. Please reconsult the surgery service for questions or concerns. Qualifiers: Laterality: right Qualified Code(s): M25.551 - Pain in right hip Attestations 2 Medical Necessity Statement*: See hospitalist note Coding Level of Care Code 09473 Diagnoses Acute pain of right hip M25.551 Laterality: right
--- NOTE | 2023-08-05 10:41 | PM.PN ---
Subjective Subjective: The events of the weekend are noted. Apparently the patient developed cellulitis of the left thigh which is improving. Has not had any recurrence of GI bleed. Denies any chest pain, shortness of breath or syncopal episodes. the vital signs are fairly stable. The blood pressure continues to remain elevated Medications: Medication Review Details: Current Medications Acetaminophen (Acetaminophen 500 Mg Tablet) 500 mg PO Q4H PRN PRN Reason: fever Last Admin: 08/05/23 05:56 Dose: 500 mg Albuterol/Ipratropium (Ipratropium-Albuterol 3 Ml Neb) 3 ml INHALATION Q6H PRN PRN Reason: SHORTNESS OF BREATH Last Admin: 07/27/23 11:55 Dose: 3 ml Aspirin (Aspirin 81 Mg Ec Tablet) 81 mg PO DAILY [facility] Last Admin: 08/02/23 08:09 Dose: Not Given Atorvastatin Calcium (Atorvastatin 40 Mg Tablet) 40 mg PO BEDTIME [facility] Last Admin: 08/03/23 21:15 Dose: 40 mg Clopidogrel Bisulfate (Clopidogrel 75 Mg Tablet) 75 mg PO DAILY [facility] Last Admin: 08/02/23 08:09 Dose: Not Given Hydralazine HCl (Hydralazine 50 Mg Tablet) 50 mg PO TID [facility] Last Admin: 08/05/23 08:38 Dose: 50 mg Vancomycin/PEG/NADA/Lysine/Water (Vancocin) 1,500 mg in 300 mls @ 200 mls/hr IV Q24H [facility] Last Infusion: 08/04/23 20:34 Dose: Infused Meropenem 500 mg/ Sodium (Chloride) 50 mls @ 100 mls/hr IV Q8H [facility]; Protocol Last Infusion: 08/05/23 06:31 Dose: Infused Lanolin (Lanolin Oint 7 Gm) 1 applic TOPICAL PRN PRN PRN Reason: DRYNESS Last Admin: 08/03/23 08:42 Dose: 1 applic Metoprolol Succinate (Metoprolol Succinate Er (24 Hr) 25 Mg Tablet) 25 mg PO DAILY [facility] Morphine Sulfate (Morphine 4 Mg/Ml Sdv 1 Ml) 1 mg IVP Q4H PRN PRN Reason: SEVERE PAIN Nystatin (Nystatin 100,000 Unit/Ml Udc 5 Ml) 400,000 unit PO QID [facility] Last Admin: 08/05/23 08:38 Dose: 400,000 unit Ondansetron HCl (Ondansetron 2 Mg/Ml Sdv 2 Ml) 4 mg IVP Q6H PRN PRN Reason: NAUSEA AND VOMITING Simethicone (Simethicone 40 Mg/0.6 Ml Bottle 30ml) 40 mg PO BID PRN PRN Reason: FLATULENCE Last Admin: 07/31/23 11:29 Dose: 40 mg Valacyclovir HCl (Valacyclovir 1,000 Mg Tablet) 1,000 mg PO BID@0900,2100 [facility] Last Admin: 08/05/23 08:39 Dose: 1,000 mg Vitals/I&O/Wt Last Vital Signs Temp 98.0 F 08/05/23 09:22 Pulse 77 08/05/23 09:22 Resp 21 H 08/05/23 09:22 BP 158/78 08/05/23 09:22 Pulse Ox 98 08/05/23 09:22 O2 Del Method Room Air 08/05/23 09:22 08/04/23 08/05/23 08/05/23 22:59 06:59 14:59 Intake Total 1470 / 1638 50 / 1688 240 / 240 Output Total 800 / 1650 600 / 2250 Balance 670 / -12 -550 / -562 240 / 240 Weight last 48 hrs Weight 252 lb Weight 254 lb 6.4 oz Physical Exam Narrative: GENERAL: The patient is alert and oriented times three. Not in any acute distress. HEENT: No significant pallor, icterus or lymphadenopathy.Oral cavity: There are no mucous membrane lesions. Superficial ecchymotic areas on the face NECK: Trachea appears to be central. No masses noted. No JVD or thyromegaly appreciated. RESPIRATORY: Chest is symmetrical. No intercostals muscle retraction or any accessory muscle activation. There is no chest wall tenderness. Breath sounds are heard bilaterally. No rales or rhonchi heard. No evidence of any consolidation. BREASTS: Deferred. HEART: The heart sounds are normal. No S3 or S4. No significant murmurs. No pericardial rub ABDOMEN: The abdomen has some distention but seems to be much less. Vague tenderness in the epigastric area. Bowel sounds are normally heard. : Deferred. RECTAL: Deferred. LYMPHATIC: No lymphadenopathy noted in the neck. EXTREMITIES: Diffuse erythema and some rashes on the medial aspect of the left thigh. It seems to be improving, as per the patient. MUSCULOSKELETAL: Patient has significant discomfort to the left hip movement SKIN: There are no significant rashes or ecchymosis NEUROPSYCHIATRIC: The patient is alert and oriented x3. Appears to be in a good mood. No tremors or rigidity noted. Urinary Catheter Management: Antoine: Cath Placed During This Visit: no Reason for Continuing Indwelling Catheter: Other Data 08/05/23 02:29 08/05/23 02:29 Micro: Microbiology 08/01/23 13:47 Blood Culture - Preliminary Blood 08/01/23 13:42 Blood Culture - Preliminary Blood A&P Assessment and plan (1) Elevated troponin: Because of the patient's multiple other medical problems and also since that he has no specific symptoms of coronary insufficiency, it may be appropriate to hold off on the Myocardial perfusion imaging for the time being. This may be done as an outpatient. May continue on the current management. Patient was placed back on the aspirin which may be continued. (2) Syncope and collapse: This could be multifactorial. Vasovagal reaction, hypotension, cardiac arrhythmia, etc. are considerations. Patient needs to be closely monitored on telemetry. Adequate hydration would be appropriate. Coronary ischemia causing this also is a consideration. No significant arrhythmias on the monitor so far. Patient was found to be of low probability for PE. At this point, he may not require any other specific intervention. (3) HTN (hypertension): For better control of blood pressure, patient may be started on amlodipine 2. mg p.o. daily. Continue monitoring blood pressure. Qualifiers: Hypertension type: primary hypertension Qualified Code(s): I10 - Essential (primary) hypertension (4) Acute kidney insufficiency: The exact etiology is not clear. The BUN/creatinine levels seems to be fairly stable and improved at this point. May continue on the current measures. (5) Elevated brain natriuretic peptide (BNP) level: The heart failure is fairly compensated at this time. May continue on the current measures. The Lasix may be given on a as needed basis. (6) Bacterial infection due to E. coli: Patient is responding to the antibiotic. Also developed cellulitis as mentioned above. The white cell count is slightly elevated. Management as per the primary. Plan Other problems are Possible acute osteoarthritis involving the left hip, clinically improving COPD Status post prostate biopsy If the patient continues to remain stable, Attestations Medical Necessity Statement*: Disposition as per the primary Coding Level of Care Code 83119 Diagnoses Elevated troponin R79.89 Syncope and collapse R55 Primary hypertension I10 Hypertension type: primary hypertension Acute kidney insufficiency N28.9 Elevated brain natriuretic peptide (BNP) level R79.89 Bacterial infection due to E. coli A49.8
[2023-08-05 10:48] LABS: Erythrocyte Sedimentation Rate 43 mm/hr (0-10)
--- NOTE | 2023-08-05 11:08 | PM.PN ---
Subjective Subjective: Patient continues to have minimal discomfort with his hip. Vitals/I&O/Wt Last Vital Signs Temp 98.0 F 08/05/23 09:22 Pulse 77 08/05/23 09:22 Resp 21 H 08/05/23 09:22 BP 158/78 08/05/23 09:22 Pulse Ox 98 08/05/23 09:22 O2 Del Method Room Air 08/05/23 09:22 08/04/23 08/05/23 08/05/23 22:59 06:59 14:59 Intake Total 1470 / 1638 50 / 1688 240 / 240 Output Total 800 / 1650 600 / 2250 Balance 670 / -12 -550 / -562 240 / 240 Weight last 48 hrs Weight 252 lb Weight 254 lb 6.4 oz Physical Exam Narrative: Erythema has decreased swelling is decreased Urinary Catheter Management: Antoine: Cath Placed During This Visit: no Reason for Continuing Indwelling Catheter: Other Data 08/05/23 02:29 08/05/23 02:29 Micro: Microbiology 08/01/23 13:47 Blood Culture - Preliminary Blood 08/01/23 13:42 Blood Culture - Preliminary Blood A&P Assessment and plan (1) Hip pain, acute: White count swelling and erythema have decreased. At this point I will continue to treat conservatively with antibiotics. At this point I do not feel patient needs an MRI. Qualifiers: Laterality: right Qualified Code(s): M25.551 - Pain in right hip Attestations Medical Necessity Statement*: Per primary service Coding Level of Care Code Acute Code for [facility] Diagnoses Acute pain of right hip M25.551 Laterality: right
[2023-08-05] MEDS: FUROsemide 10 mg/mL SDV 4mL 40 MG IVP (11:34)
[2023-08-05] MEDS: amlodipine 5 mg Tablet 2.5 MG PO (14:03)
--- NOTE | 2023-08-05 14:32 | PC.NURSE ---
pt ambulated down hallways with sons at his side using walker. pt tolerated act. well. denies any pains.
--- NOTE | 2023-08-05 15:18 | P.PN_ITS ---
Subjective 2 Subjective: Hospital course, labs appreciated. Seen with son at bedside. Patient sitting up in chair. States he is able to ambulate in and around the room by himself. Has been told not to ambulate much. States lower limb redness is reducing. Remains on room air. Has remained hemodynamically stable and afebrile. Vitals/I&O/Wt Last Vital Signs Temp 98.0 F 08/05/23 13:00 Pulse 81 08/05/23 14:33 Resp 18 08/05/23 14:33 BP 173/80 08/05/23 14:20 Pulse Ox 98 08/05/23 14:33 O2 Del Method Room Air 08/05/23 14:33 08/05/23 08/05/23 08/05/23 06:59 14:59 22:59 Intake Total 50 / 1688 600 / 600 Output Total 600 / 2250 2400 / 2400 Balance -550 / -562 -1800 / -1800 Weight last 48 hrs Weight 114.305 kg Weight 115.394 kg Physical Exam 2 Narrative: General: No acute distress, AO x3, chronically sick appearing HEENT: PERRLA, pupils bilaterally equal and reactive Chest: Bilateral bronchial breath sounds all over lung ji with diffuse rhonchi CVS: S1-S2 regular, no murmurs, no tachycardia, no gallops, no rubs Abdomen: Soft, nontender, no organomegaly, bowel sounds present Neuro: No focal deficits, no facial deformity, AO x3, power 5/5 in all limbs HENMT: OTHER: Chapped lips, eschar, no blisters or weeping. Less edema, more eschar. Small shallow ulcerations infero lateral to the L side mouth. Extremity: OTHER: Area of erythema, localized rise in temperature in the left medial thigh going up to the groin and posteriorly Urinary Catheter Management: Antoine: Cath Placed During This Visit: no Reason for Continuing Indwelling Catheter: Other Data 08/05/23 02:29 08/05/23 02:29 Micro: Microbiology 08/01/23 13:47 Blood Culture - Preliminary Blood 08/01/23 13:42 Blood Culture - Preliminary Blood A&P Assessment and plan (1) Bacterial infection due to E. coli: (2) Sepsis: (3) Acute kidney insufficiency: (4) Dehydration: (5) Syncope and collapse: (6) D-dimer, elevated: (7) Cystitis: (8) Prostatitis: (9) Non-ST elevation [place] (NSTEMI): (10) Elevated troponin: (11) Hematochezia: (12) Cellulitis of left thigh: (13) Swelling of lower limb: Plan Leukocytosis: Resolving today. Patient was admitted with prostatitis and found to have E. coli bacteremia. Leukocytosis was resolving but worsened recently. Resolving now. Patient having episodes of diarrhea. Stool for C. difficile has been sent out. Patient was found to have a cellulitis of left thigh. Cellulitis of left thigh: Complex fluid collection left thigh: MRI done on 08/01 consistent with mild fluid collection. Appreciate CT done on 08/04 which was negative for any drainable collection. As per the family and the patient did have unknot/boil at posterior aspect of the thigh. Appreciate surgical and orthopedic recommendations. As per the family member seems to be improving. Continue with broader spectrum of antibiotics with vancomycin and meropenem for now. MRSA earlier in the admission negative. Check ESR, CRP. CPK trending down. Ambulate. Out of bed to chair. Check lower limb Doppler to rule out DVT. Patient did have elevated D-dimer on admission. Anticoagulation discontinued earlier last week because of possibility of hematochezia and hematuria. For now hold off on further MRI of CT as patient is clinically improving. If spikes fever or has worsening of leukocytosis we will plan for further imaging. Hematochezia: Hemoglobin down to 10.8. Slowly trending down. Protonix stopped earlier in the admission with concerns for fixed drug reaction. Do antiplatelets stopped. For now restart aspirin. Start on famotidine 40 mg twice daily. Add Carafate. Monitor hemoglobin daily. Stool studies awaited. If hemoglobin continues to trend down we will plan for surgical consultation for possible colonoscopy. Mild rhabdomyolysis: Concerns for myositis earlier in the admission. CPK trending down. Continue to monitor. Statins on hold. MARY CARMEN: Resolved. Creatinine down to 1.3. Monitor BMP daily. Medical reconciliation done for nephrotoxic drugs. Strict input output charting. Plan for continue Antoine catheter for 1 more day. Getting Lasix 40 mg one-time today. Will plan to discontinue Antoine within next 24 hours. Hematuria: Resolved. 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 SJS ruled out earlier in admission. Cannot rule out FDP. Protonix withheld. Continue with valacyclovir to finish a 10-day course. Non-ST elevation [place]: Restart aspirin. No active chest pain. Plavix on hold because of hematochezia. Anticoagulation stopped early on admission because of hematuria. Appreciate cardiology recommendations. Statins on hold because of rhabdomyolysis. Appreciate echocardiogram. Patient will need to have Lexiscan stress test as an outpatient once all other chronic and acute conditions have been resolved. Elevated D-dimer: Present on admission. Anticoagulation withheld as above. VQ scan negative. Lower limb Doppler as above. Prostatitis: E. coli bacteremia: Appreciate sensitivities. Continue IV antibiotics for overall 14 days. Currently on meropenem as above. E. coli also sensitive to meropenem. Blood cultures from 07/28 so far negative. Last day of antibiotics 0 08/12. Hypertension: Goal blood pressure less than 140/90 mmHg. Blood pressure mildly elevated. Continue with hydralazine. Add amlodipine as per cardiology. CODE STATUS: Full code Changed to mechanical soft diet. Famotidine for PUD prophylaxis Restart heparin 5000 every 12 hourly for DVT prophylaxis. Discharge plan: Plan to discharge within next 24 to 48 hours to home with home health versus SNF. Will request PT again. Attestations 2 Medical Necessity Statement*: Requires further hospitalization for management of cellulitis of left thigh, hematochezia with persistent leukocytosis, resolving MARY CARMEN, rhabdomyolysis, non-ST elevation [place] with elevated D-dimer, E. coli bacteremia Diagnoses Bacterial infection due to E. coli A49.8 Sepsis A41.9 Acute kidney insufficiency N28.9 Dehydration E86.0 Syncope and collapse R55 D-dimer, elevated R79.89 Cystitis N30.90 Prostatitis N41.9 Non-ST elevation [place] (NSTEMI) I21.4 Elevated troponin R79.89 Hematochezia K92.1 Cellulitis of left thigh L03.116 Swelling of lower limb M79.89
--- NOTE | 2023-08-05 15:20 | USR_ITS ---
PROCEDURE INFORMATION: Exam: US Duplex Lower Extremity Veins, Bilateral Exam date and time: 08/05/2023 3:49 PM Age: 88 years old Clinical indication: Other: Stasis, cellutitis; Additional info: R/O dvt TECHNIQUE: Imaging protocol: Real-time duplex ultrasound of the bilateral extremities with 2-D ruth scale, color Doppler flow and spectral waveform analysis including responses to compression and other maneuvers (when performed) with image documentation. Complete exam focused on the lower extremity veins. COMPARISON: US CV venous duplex [facility] [id number] 07/27/2023 10:23 AM FINDINGS: Right deep veins: The common femoral, femoral, proximal profunda femoral, popliteal, posterior tibial, and peroneal veins are patent without thrombus. Normal compressibility and/or augmentation response. Left deep veins: The common femoral, femoral, proximal profunda femoral, popliteal, posterior tibial, and peroneal veins are patent without thrombus. Normal compressibility and/or augmentation response. Superficial veins: Bilateral saphenofemoral junctions are patent without thrombus. Soft tissues: Mild subcutaneous edema in the right and left calves. US/CV venous duplex [facility] [id number] IMPRESSION: 1. No evidence for deep venous thrombosis in the right or left lower extremities. 2. Mild subcutaneous edema in the right and left calves.
[2023-08-05] MEDS: famotidine 20 mg/2 mL INJ 40 MG IVP (16:44)
[2023-08-05] MEDS: heparin 5,000 unit/mL INJ 1 mL 5000 UNIT SUBCUT (16:45)
[2023-08-05] MEDS: sucralfate 1 gm/10 mL Oral Liq UDC PO ×2 (16:45→20:12)
[2023-08-05 17:29] LABS: Vancomycin Trough 10.5 ug/mL (10-15)
[2023-08-05] MEDS: vancomycin 1,500 MG/300 ML PIGGYBACK 200 MG IV (18:27)
[2023-08-05] MEDS: amlodipine 5 mg Tablet PO (20:10)
[2023-08-06] VITALS (65 sets, daily range): BP systolic 101–166; BP diastolic 55–89; PULSE 71–92; RESP 16–32; TEMP 36.6–37.1; O2SAT 94–98
[2023-08-06 04:34] LABS: Basophils # 0.1 10^3/uL (0.0-0.1); Basophils % 0.9 %; Eosinophils # 0.5 10^3/uL (0.0-0.8); Eosinophils % 4.3 %; Hematocrit 30.3 % (37-53); Lymphocytes # 2.3 10^3/uL (0.8-4.8); Lymphocytes % 21.2 %; Mean Corpuscular HGB Conc 33.7 g/dL (30-55); Mean Corpuscular Hemoglobin 29.8 pg (27-33); Mean Corpuscular Volume 88.6 fl (82-101); Mean Platelet Volume 9.6 fL (7.4-10.4); Monocytes % 9.8 %; Neutrophils % 63.1 %; Nucleated Red Blood Cells % 0 %; Platelet Count 431 10^3/cmm (157-399); Red Blood Count 3.42 10^6/uL (3.85-5.65); Red Cell Distribution Width 14.2 % (12.1-15.1); White Blood Count 10.62 10^3/uL (3.29-11.43)
[2023-08-06] MEDS: famotidine 20 mg/2 mL INJ 40 MG IVP ×2 (04:44→15:31)
[2023-08-06] MEDS: heparin 5,000 unit/mL INJ 1 mL 5000 UNIT SUBCUT ×2 (04:47→15:31)
[2023-08-06 05:09] LABS: Alanine Aminotransferase 42 U/L (0-41); Alkaline Phosphatase 80 U/L (40-130); Anion Gap 14.7 (5-19); Aspartate Amino Transferase 38 U/L (0-40); Blood Urea Nitrogen 25 mg/dL (8-23); Calcium 8.9 mg/dL (8.5-10.5); Carbon Dioxide 26 mmol/L (22-29); Chloride 101 mmol/L (98-107); Globulin 2.9 g/dL (1.3-4.6); Glucose 106 mg/dL (65-115); Osmolality Calculated 291 mOsm/kg (285-295); Potassium 3.7 mmol/L (3.5-5.1); Sodium 138 mmol/L (136-145); Total Bilirubin 0.6 mg/dL (0.15-1.2); Total Protein 5.9 g/dL (6.6-8.7)
[2023-08-06] MEDS: meropenem 500 MG in sodium chloride 0.9% (plus) 50 ML 100 MG IV ×3 (05:25→22:33)
[2023-08-06] MEDS: acetaminophen 500 mg Tablet PO ×3 (05:32→21:01)
[2023-08-06] MEDS: sucralfate 1 gm/10 mL Oral Liq UDC PO ×4 (06:42→21:01)
[2023-08-06] MEDS: potassium chloride ER 20 mEq Tablet 40 MEQ PO ×3 (10:36→13:57)
[2023-08-06] MEDS: valACYclovir 1,000 mg Tablet 1000 MG PO ×2 (10:36→21:01)
[2023-08-06] MEDS: amlodipine 5 mg Tablet 2.5 MG PO (10:36)
[2023-08-06] MEDS: aspirin 81 mg EC Tablet PO (10:37)
[2023-08-06] MEDS: metoprolol succinate ER (24 HR) 25 mg Tablet PO (10:37)
[2023-08-06] MEDS: hyDRALAzine 50 mg Tablet PO ×3 (10:37→21:01)
[2023-08-06] MEDS: nystatin 100,000 unit/mL UDC 5 mL 400000 UNIT PO ×4 (10:37→21:01)
--- NOTE | 2023-08-06 13:07 | P.PN_ITS ---
Subjective 2 Subjective: No acute events overnight. Seen with multiple family members at bedside. Patient doing a lot better. Seen after bath in the morning today. States he is feeling a lot better. Denies any nausea, ting, ache. Able to ambulate by himself with a walker. Blood work appreciated. Vitals/I&O/Wt Last Vital Signs Temp 97.8 F 08/06/23 08:00 Pulse 84 08/06/23 11:00 Resp 20 H 08/06/23 11:00 BP 162/69 08/06/23 12:10 Pulse Ox 97 08/06/23 10:55 O2 Del Method Room Air 08/06/23 08:17 08/05/23 08/06/23 08/06/23 22:59 06:59 14:59 Intake Total 2110 / 2710 900 / 3610 240 / 240 Output Total 750 / 4350 500 / 4850 Balance 1360 / -1640 400 / -1240 240 / 240 Weight last 48 hrs Weight 115.575 kg Weight 114.305 kg Physical Exam 2 Narrative: General: No acute distress, AO x3, chronically sick appearing HEENT: PERRLA, pupils bilaterally equal and reactive Chest: Bilateral bronchial breath sounds all over lung ji with diffuse rhonchi CVS: S1-S2 regular, no murmurs, no tachycardia, no gallops, no rubs Abdomen: Soft, nontender, no organomegaly, bowel sounds present Neuro: No focal deficits, no facial deformity, AO x3, power 5/5 in all limbs HENMT: OTHER: Chapped lips, eschar, no blisters or weeping. Less edema, more eschar. Small shallow ulcerations infero lateral to the L side mouth. Extremity: OTHER: Area of erythema, localized rise in temperature in the left medial thigh going up to the groin and posteriorly Urinary Catheter Management: Antoine: Cath Placed During This Visit: yes, but has since been removed by the nurse Reason for Continuing Indwelling Catheter: Decision to DC Catheter Date Urinary Catheter Removed: 08/06/23 Time Urinary Catheter Discontinued: 12:00 Data 08/06/23 03:50 08/06/23 03:50 A&P Assessment and plan (1) Bacterial infection due to E. coli: (2) Sepsis: (3) Acute kidney insufficiency: (4) Dehydration: (5) Syncope and collapse: (6) D-dimer, elevated: (7) Cystitis: (8) Prostatitis: (9) Non-ST elevation [place] (NSTEMI): (10) Elevated troponin: (11) Hematochezia: (12) Cellulitis of left thigh: (13) Swelling of lower limb: Plan Leukocytosis: Resolving today. Patient was admitted with prostatitis and found to have E. coli bacteremia. Leukocytosis was resolving but worsened recently. Resolving now. Patient having episodes of diarrhea. Stool for C. difficile has been sent out. Patient was found to have a cellulitis of left thigh. Cellulitis of left thigh: Complex fluid collection left thigh: MRI done on 08/01 consistent with mild fluid collection. Appreciate CT done on 08/04 which was negative for any drainable collection. As per the family and the patient did have unknot/boil at posterior aspect of the thigh. Appreciate surgical and orthopedic recommendations. As per the family member seems to be improving. Continue with broader spectrum of antibiotics with vancomycin and meropenem for now. MRSA earlier in the admission negative. Check ESR, CRP. CPK trending down. Ambulate. Out of bed to chair. Check lower limb Doppler to rule out DVT. Patient did have elevated D-dimer on admission. Anticoagulation discontinued earlier last week because of possibility of hematochezia and hematuria. For now hold off on further MRI of CT as patient is clinically improving. If spikes fever or has worsening of leukocytosis we will plan for further imaging. Hematochezia: Hemoglobin down to 10.8. Slowly trending down. Protonix stopped earlier in the admission with concerns for fixed drug reaction. Do antiplatelets stopped. For now restart aspirin. Start on famotidine 40 mg twice daily. Add Carafate. Monitor hemoglobin daily. Stool studies awaited. If hemoglobin continues to trend down we will plan for surgical consultation for possible colonoscopy. Mild rhabdomyolysis: Concerns for myositis earlier in the admission. CPK trending down. Continue to monitor. Statins on hold. MARY CARMEN: Resolved. Creatinine down to 1.3. Monitor BMP daily. Medical reconciliation done for nephrotoxic drugs. Strict input output charting. Plan for continue Antoine catheter for 1 more day. Getting Lasix 40 mg one-time today. Will plan to discontinue Antoine within next 24 hours. Hematuria: Resolved. 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 SJS ruled out earlier in admission. Cannot rule out FDP. Protonix withheld. Continue with valacyclovir to finish a 10-day course. Non-ST elevation [place]: Restart aspirin. No active chest pain. Plavix on hold because of hematochezia. Anticoagulation stopped early on admission because of hematuria. Appreciate cardiology recommendations. Statins on hold because of rhabdomyolysis. Appreciate echocardiogram. Patient will need to have Lexiscan stress test as an outpatient once all other chronic and acute conditions have been resolved. Elevated D-dimer: Present on admission. Anticoagulation withheld as above. VQ scan negative. Lower limb Doppler as above. Prostatitis: E. coli bacteremia: Appreciate sensitivities. Continue IV antibiotics for overall 14 days. Currently on meropenem as above. E. coli also sensitive to meropenem. Blood cultures from 07/28 so far negative. Last day of antibiotics 0 08/12. Hypertension: Goal blood pressure less than 140/90 mmHg. Blood pressure mildly elevated. Continue with hydralazine. Add amlodipine as per cardiology. CODE STATUS: Full code Changed to mechanical soft diet. Famotidine for PUD prophylaxis Restart heparin 5000 every 12 hourly for DVT prophylaxis. Plan for the day: Continue with vancomycin and meropenem for now. Leukocytosis has resolved. C. difficile PCR still pending. As per the lab test was not performed because of inadequate specimen. Suspicion low for now. Continue with physical therapy. Out of bed to chair. Continue with baby aspirin, famotidine twice daily and Carafate. Hemoglobin stable. Holding off on Plavix for now. MARY CARMEN resolved. DC Antoine catheter. Continue valacyclovir to finish a 10-day course. Plan for Lexiscan stress test as an outpatient. PICC line placement today. Plan to discharge in next 24 hours to home with home health patient remains hemodynamically stable with PICC line placement and IV or ertapenem to finish a 14-day course with last dose on 08/12/2023. Blood pressure is elevated. Goal less than 140/90 mmHg. Increase amlodipine to 10 mg oral daily. Attestations 2 Medical Necessity Statement*: Requires further hospitalization for management of left thigh cellulitis, E. coli bacteremia due to prostatitis, non-ST elevation [place] complicated with hematuria and hematochezia in a patient with recent prostate biopsy Diagnoses Bacterial infection due to E. coli A49.8 Sepsis A41.9 Acute kidney insufficiency N28.9 Dehydration E86.0 Syncope and collapse R55 D-dimer, elevated R79.89 Cystitis N30.90 Prostatitis N41.9 Non-ST elevation [place] (NSTEMI) I21.4 Elevated troponin R79.89 Hematochezia K92.1 Cellulitis of left thigh L03.116 Swelling of lower limb M79.89
[2023-08-06] MEDS: lanolin oint 7 gm 1 APPLIC TOPICAL (14:00)
[2023-08-06 17:16] LABS: Vancomycin Trough 12.1 ug/mL (10-15)
[2023-08-06] MEDS: vancomycin 1,500 MG/300 ML PIGGYBACK 200 MG IV (18:17)
--- NOTE | 2023-08-06 21:42 | PM.PN ---
Subjective Subjective: cellulitis in the left leg seems to be slowly improving. Patient denies any chest pain. The blood pressure seems to be slowly getting under control. Has no fever or chills. The white cell count is within normal limits. No unusual shortness of breath. Has been ambulating on telemetry Medications: Medication Review Details: Current Medications Acetaminophen (Acetaminophen 500 Mg Tablet) 500 mg PO Q4H PRN PRN Reason: fever Last Admin: 08/06/23 21:01 Dose: 500 mg Albuterol/Ipratropium (Ipratropium-Albuterol 3 Ml Neb) 3 ml INHALATION Q6H PRN PRN Reason: SHORTNESS OF BREATH Last Admin: 07/27/23 11:55 Dose: 3 ml Amlodipine Besylate (Amlodipine 5 Mg Tablet) 10 mg PO DAILY [facility] Aspirin (Aspirin 81 Mg Ec Tablet) 81 mg PO DAILY [facility] Last Admin: 08/06/23 10:37 Dose: 81 mg Atorvastatin Calcium (Atorvastatin 40 Mg Tablet) 40 mg PO BEDTIME [facility] Last Admin: 08/03/23 21:15 Dose: 40 mg Clopidogrel Bisulfate (Clopidogrel 75 Mg Tablet) 75 mg PO DAILY [facility] Last Admin: 08/02/23 08:09 Dose: Not Given Famotidine (Famotidine 20 Mg/2 Ml Inj) 40 mg IVP Q12H [facility] Last Admin: 08/06/23 15:31 Dose: 40 mg Heparin Sodium (Porcine) (Heparin 5,000 Unit/Ml Inj 1 Ml) 5,000 unit SUBCUT Q12H [facility] Last Admin: 08/06/23 15:31 Dose: 5,000 unit Hydralazine HCl (Hydralazine 50 Mg Tablet) 50 mg PO TID [facility] Last Admin: 08/06/23 21:01 Dose: 50 mg Vancomycin/PEG/NADA/Lysine/Water (Vancocin) 1,500 mg in 300 mls @ 200 mls/hr IV Q24H [facility] Last Infusion: 08/06/23 21:00 Dose: Infused Meropenem 500 mg/ Sodium (Chloride) 50 mls @ 100 mls/hr IV Q8H [facility]; Protocol Last Admin: 08/06/23 13:57 Dose: 100 mls/hr Lanolin (Lanolin Oint 7 Gm) 1 applic TOPICAL PRN PRN PRN Reason: DRYNESS Last Admin: 08/06/23 14:00 Dose: 1 applic Metoprolol Succinate (Metoprolol Succinate Er (24 Hr) 25 Mg Tablet) 25 mg PO DAILY [facility] Last Admin: 08/06/23 10:37 Dose: 25 mg Morphine Sulfate (Morphine 4 Mg/Ml Sdv 1 Ml) 1 mg IVP Q4H PRN PRN Reason: SEVERE PAIN Nystatin (Nystatin 100,000 Unit/Ml Udc 5 Ml) 400,000 unit PO QID [facility] Last Admin: 08/06/23 21:01 Dose: 400,000 unit Ondansetron HCl (Ondansetron 2 Mg/Ml Sdv 2 Ml) 4 mg IVP Q6H PRN PRN Reason: NAUSEA AND VOMITING Simethicone (Simethicone 40 Mg/0.6 Ml Bottle 30ml) 40 mg PO BID PRN PRN Reason: FLATULENCE Last Admin: 07/31/23 11:29 Dose: 40 mg Sucralfate (Sucralfate 1 Gm/10 Ml Oral Liq Udc) 1 gm PO AC&BEDTIME [facility] Last Admin: 08/06/23 21:01 Dose: 1 gm Valacyclovir HCl (Valacyclovir 1,000 Mg Tablet) 1,000 mg PO BID@0900,2100 [facility] Last Admin: 08/06/23 21:01 Dose: 1,000 mg Vitals/I&O/Wt Last Vital Signs Temp 98.2 F 08/06/23 19:20 Pulse 72 08/06/23 20:15 Resp 16 08/06/23 20:15 BP 160/75 08/06/23 19:20 Pulse Ox 98 08/06/23 20:15 O2 Del Method Room Air 08/06/23 20:15 08/06/23 08/06/23 08/06/23 06:59 14:59 22:59 Intake Total 900 / 3610 240 / 240 300 / 540 Output Total 500 / 4850 Balance 400 / -1240 240 / 240 300 / 540 Weight last 48 hrs Weight 254 lb 12.8 oz Weight 252 lb Physical Exam Narrative: GENERAL: The patient is alert and oriented times three. Not in any acute distress. HEENT: No significant pallor, icterus or lymphadenopathy.Oral cavity: There are no mucous membrane lesions. Superficial ecchymotic areas on the face NECK: Trachea appears to be central. No masses noted. No JVD or thyromegaly appreciated. RESPIRATORY: Chest is symmetrical. No intercostals muscle retraction or any accessory muscle activation. There is no chest wall tenderness. Breath sounds are heard bilaterally. No rales or rhonchi heard. No evidence of any consolidation. BREASTS: Deferred. HEART: The heart sounds are normal. No S3 or S4. No significant murmurs. No pericardial rub ABDOMEN: The abdomen has some distention but seems to be much less. Vague tenderness in the epigastric area. Bowel sounds are normally heard. : Deferred. RECTAL: Deferred. LYMPHATIC: No lymphadenopathy noted in the neck. EXTREMITIES: Diffuse erythema and some rashes on the medial aspect of the left thigh. It seems to be improving, as per the patient. MUSCULOSKELETAL: Patient has significant discomfort to the left hip movement SKIN: There are no significant rashes or ecchymosis NEUROPSYCHIATRIC: The patient is alert and oriented x3. Appears to be in a good mood. No tremors or rigidity noted. Urinary Catheter Management: Antoine: Cath Placed During This Visit: yes, but has since been removed by the nurse Reason for Continuing Indwelling Catheter: Decision to DC Catheter Date Urinary Catheter Removed: 08/06/23 Time Urinary Catheter Discontinued: 12:00 Data 08/06/23 03:50 08/06/23 03:50 Other Labs: Laboratory Last Values WBC 10.62 10^3/uL (3.29-11.43) 08/06/23 03:50 RBC 3.42 10^6/uL (3.85-5.65) L 08/06/23 03:50 Hgb 10.20 g/dL (11.27-16.99) L 08/06/23 03:50 Hct 30.3 % (37-53) L 08/06/23 03:50 MCV 88.6 fl (82-101) 08/06/23 03:50 MCH 29.8 pg (27-33) 08/06/23 03:50 MCHC 33.7 g/dL (30-55) 08/06/23 03:50 RDW 14.2 % (12.1-15.1) 08/06/23 03:50 Plt Count 431 10^3/cmm (157-399) H 08/06/23 03:50 MPV 9.6 fL (7.4-10.4) 08/06/23 03:50 Neut % (Auto) 63.1 % 08/06/23 03:50 Lymph % (Auto) 21.2 % 08/06/23 03:50 [place] % (Auto) 9.8 % 08/06/23 03:50 Eos % (Auto) 4.3 % 08/06/23 03:50 Baso % (Auto) 0.9 % 08/06/23 03:50 Neut # (Auto) 6.70 10^3/uL (1.8-7.7) 08/06/23 03:50 Lymph # (Auto) 2.3 10^3/uL (0.8-4.8) 08/06/23 03:50 [place] # (Auto) 1.0 10^3/uL (0.2-0.9) H 08/06/23 03:50 Eos # (Auto) 0.5 10^3/uL (0.0-0.8) 08/06/23 03:50 Baso # (Auto) 0.1 10^3/uL (0.0-0.1) 08/06/23 03:50 Nucleated RBC % (auto) 0 % 08/06/23 03:50 Nucleated RBCs # 0.0 /100WBC 08/06/23 03:50 ESR 43 mm/hr (0-10) H 08/05/23 02:29 PT 15.30 SECONDS (12.1-14.9) H 07/26/23 20:42 INR 1.17 (0.8-1.2) 07/26/23 20:42 APTT 59.8 SECONDS (23.9-36.7) H 08/01/23 03:50 D-Dimer 18.51 ug/mLFEU (0-0.59) H 07/27/23 00:00 Specimen Type Arterial 07/27/23 02:48 Sample Site Radial, left 07/27/23 02:48 ABG pH 7.43 (7.35-7.45) 07/27/23 02:48 ABG pCO2 33.2 mmHg (35-45) L 07/27/23 02:48 ABG pO2 64.1 mmHg (80.0-100.0) L 07/27/23 02:48 ABG PO2/FiO2 Ratio 0 07/27/23 02:48 ABG HCO3 22.1 mmol/L (22-26) 07/27/23 02:48 ABG Base Excess -1.5 mmol/L (-2.0-2.0) 07/27/23 02:48 Ortiz Test Pos 07/27/23 02:48 Hematocrit 44.4 % (42-52) 07/27/23 02:48 O2 Delivery Device Nc 07/27/23 02:48 FiO2 21.0 % 07/27/23 02:48 Feather Mixer ID Rodriguez 07/27/23 02:48 Sodium 138 mmol/L (136-145) 08/06/23 03:50 Potassium 3.7 mmol/L (3.5-5.1) 08/06/23 03:50 Chloride 101 mmol/L (98-107) 08/06/23 03:50 Carbon Dioxide 26 mmol/L (22-29) 08/06/23 03:50 Anion Gap 14.7 (5-19) 08/06/23 03:50 BUN 25 mg/dL (8-23) H 08/06/23 03:50 Creatinine 1.2 mg/dL (0.7-1.2) 08/06/23 03:50 GFR Calculation Not Reportable 08/06/23 03:50 Glucose 106 mg/dL (65-115) 08/06/23 03:50 POC Glucose 119 mg/dL (70-110) H 08/02/23 00:31 Estimat Average Glucose 134 07/27/23 04:21 Hemoglobin A1c 6.3 % (4.0-6.0) H 07/27/23 04:21 Calculated Osmolality 291 mOsm/kg (285-295) 08/06/23 03:50 Lactic Acid 3.5 mmol/L (0.5-2.2) H 07/27/23 00:00 Lactic Acid (Sepsis) 3.8 mmol/L (0.5-2.2) H 07/27/23 04:21 Lactate 3.8 mmol/L (0.5-2.2) H 07/27/23 07:15 Calcium 8.9 mg/dL (8.5-10.5) 08/06/23 03:50 Phosphorus 2.3 mg/dL (2.5-4.5) L 07/30/23 03:57 Magnesium 2.1 mg/dL (1.7-2.3) 07/30/23 03:57 Iron 9 ug/dL (59-158) L 07/27/23 04:21 TIBC 217 mcg/dl 07/27/23 04:21 % Saturation 4.1 % (20-50) L 07/27/23 04:21 Unsat Iron Binding 208 ug/dL (112-347) 07/27/23 04:21 Total Bilirubin 0.6 mg/dL (0.15-1.2) 08/06/23 03:50 AST 38 U/L (0-40) 08/06/23 03:50 ALT 42 U/L (0-41) H 08/06/23 03:50 Alkaline Phosphatase 80 U/L (40-130) 08/06/23 03:50 Creatine Kinase 359 U/L (39-308) H* 08/05/23 02:29 Troponin T Baseline 236 ng/L (0-15) H* 07/27/23 04:21 Troponin T 120 Minute 219.8 ng/L (0-15) H 07/27/23 07:15 Delta Troponin T -16.2 ABS# (0-10) L 07/27/23 07:15 Troponin T Hi Sens 6Hr 170.1 ng/L (0-15) H 07/27/23 10:36 Troponin T Hi Sens 6Hr Delta -65.9 ng/L (0-12) L 07/27/23 10:36 C-Reactive Protein 103.4 mg/L (0.0-4.9) H 07/27/23 04:21 NT-Pro-B Natriuret Pep 5638 pg/mL (0-450) H 07/27/23 04:21 Total Protein 5.9 g/dL (6.6-8.7) L 08/06/23 03:50 Albumin 3.0 g/dL (3.5-5.2) L 08/06/23 03:50 Globulin 2.9 g/dL (1.3-4.6) 08/06/23 03:50 Triglycerides 175 mg/dL (0-150) H 07/28/23 05:00 Cholesterol 96 mg/dL (0-200) 07/28/23 05:00 LDL Cholesterol, Calc 37 mg/dL (50-129) L 07/28/23 05:00 Total VLDL Cholesterol 35 mg/dL (0-30) H 07/28/23 05:00 HDL Cholesterol 24 mg/dL (60-100) L 07/28/23 05:00 Cholesterol/HDL Ratio 4.00 mg/dL (1.0-5.00) 07/28/23 05:00 Vitamin B12 287 pg/mL (232-1245) 07/27/23 04:21 Folate 4.6 ng/mL (4.5-32.2) 07/28/23 05:00 Procalcitonin 66.13 ng/mL (0-0.5) H 07/27/23 00:00 TSH 0.88 uIU/mL (0.27-4.20) 07/27/23 04:21 Urine Color Brown (Yellow) A 07/27/23 12:04 Urine Color Cancelled 07/27/23 12:04 Urine Appearance Cancelled 07/27/23 12:04 Urine Appearance Cloudy (CLEAR) A 07/27/23 12:04 Urine pH 5 (5-7) 07/27/23 12:04 Urine pH Cancelled 07/27/23 12:04 Ur Specific [place] 1.020 (1.005-1.030) 07/27/23 12:04 Ur Specific [place] Cancelled 07/27/23 12:04 Urine Protein 3+ (Negative) H 07/27/23 12:04 Urine Protein Cancelled 07/27/23 12:04 Urine Glucose (UA) Cancelled 07/27/23 12:04 Urine Glucose (UA) Norm (Normal) 07/27/23 12:04 Urine Ketones Cancelled 07/27/23 12:04 Urine Ketones Negative (Negative) 07/27/23 12:04 Urine Blood 3+ (Negative) H 07/27/23 12:04 Urine Blood Cancelled 07/27/23 12:04 Urine Nitrate Cancelled 07/27/23 12:04 Urine Nitrate Negative (Negative) 07/27/23 12:04 Urine Bilirubin 1+ (Negative) H 07/27/23 12:04 Urine Bilirubin Cancelled 07/27/23 12:04 Prot Sulfosalicylic Acd Cancelled 07/27/23 12:04 Urine Urobilinogen Cancelled 07/27/23 12:04 Urine Urobilinogen Norm mg/dL (Negative) 07/27/23 12:04 Ur Leukocyte Esterase 2+ (Negative) H 07/27/23 12:04 Ur Leukocyte Esterase Cancelled 07/27/23 12:04 Urine RBC >100 /hpf (0-2) H 07/27/23 12:04 Urine WBC 25-40 /hpf (0-5) H 07/27/23 12:04 Ur Squamous Epith Cells None /hpf (0-5) 07/27/23 12:04 Amorphous Sediment Not Reportable 07/27/23 12:04 Urine Bacteria 2+ /hpf (NONE) H 07/27/23 12:04 Coarse Granular Casts 25-40 /lpf H 07/27/23 12:04 Nasal Influ A H1 2009 PCR Not detected (NOT DETECT) 07/27/23 01:20 Vancomycin Trough 12.1 ug/mL (10-15) 08/06/23 16:12 Urine Opiates Screen Negative ng/mL (Negative) 07/27/23 12:04 Ur Barbiturates Screen Negative ng/mL (Negative) 07/27/23 12:04 Ur Phencyclidine Scrn Negative ng/mL (Negative) 07/27/23 12:04 Ur Amphetamines Screen Negative ng/mL (Negative) 07/27/23 12:04 U Benzodiazepines Scrn Negative ng/mL (Negative) 07/27/23 12:04 Urine Cocaine Screen Negative ng/mL (Negative) 07/27/23 12:04 U Marijuana (THC) Screen Negative ng/mL (Negative) 07/27/23 12:04 Adenovirus (PCR) Not detected (NOT DETECT) 07/27/23 01:20 C. pneumoniae DNA (PCR) Not detected (NOT DETECT) 07/27/23 01:20 C. difficile Tox (PCR) TNP 08/04/23 21:28 Coronavirus 229E (PCR) Not detected (NOT DETECT) 07/27/23 01:20 Human Metapneumovir PCR Not detected (NOT DETECT) 07/27/23 01:20 Influenza A (H1) PCR Not detected (NOT DETECT) 07/27/23 01:20 Influenza A (H3) PCR Not detected (NOT DETECT) 07/27/23 01:20 Influenza Type A (PCR) Not detected (NOT DETECT) 07/27/23 01:20 Influenza Type B (PCR) Not detected (NOT DETECT) 07/27/23 01:20 M. pneumoniae (PCR) Not detected (NOT DETECT) 07/27/23 01:20 Parainfluenza 1 (PCR) Not detected (NOT DETECT) 07/27/23 01:20 Parainfluenza 2 (PCR) Not detected (NOT DETECT) 07/27/23 01:20 Parainfluenza 3 (PCR) Not detected (NOT DETECT) 07/27/23 01:20 Parainfluenza 4 (PCR) Not detected (NOT DETECT) 07/27/23 01:20 RSV Type A (PCR) Not detected (NOT DETECT) 07/27/23 01:20 RSV Type B (PCR) Not detected (NOT DETECT) 07/27/23 01:20 Entero/Rhino (PCR) Not detected (NOT DETECT) 07/27/23 01:20 SARS-CoV-2 (PCR) Not detected (NOT DETECT) 07/27/23 01:20 MRSA (PCR) Not detected (NOT DETECTED) 07/27/23 14:10 Blood Type O Positive 08/02/23 01:45 Rho(D) Type Rh positive 08/02/23 01:45 Antibody Screen Negative 08/02/23 01:45 Crossmatch See Detail 08/02/23 01:45 A&P Assessment and plan (1) Elevated troponin: the patient may be Continued on the current medication. Consider Myocardial perfusion imaging as an outpatient. (2) Syncope and collapse: Has not had a recurrence of syncope. May continue on the current management. (3) HTN (hypertension): The blood pressure seems to be slowly getting under control. The dose of the amlodipine may be titrated up Qualifiers: Hypertension type: primary hypertension Qualified Code(s): I10 - Essential (primary) hypertension (4) Acute kidney insufficiency: The exact etiology is not clear. The BUN/creatinine levels seems to be fairly stable and improved at this point. May continue on the current measures. (5) Elevated brain natriuretic peptide (BNP) level: The heart failure is fairly compensated at this time. May continue on the current measures. The Lasix may be given on a as needed basis. (6) Bacterial infection due to E. 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 Attestations Medical Necessity Statement*: deferred to the primary Coding Level of Care Code 22651 Diagnoses Elevated troponin R79.89 Syncope and collapse R55 Primary hypertension I10 Hypertension type: primary hypertension Acute kidney insufficiency N28.9 Elevated brain natriuretic peptide (BNP) level R79.89 Bacterial infection due to E. coli A49.8
[2023-08-07] VITALS (11 sets, daily range): BP systolic 139–147; BP diastolic 62; PULSE 69–82; RESP 16–21; TEMP 36.7–36.9; O2SAT 94–98
[2023-08-07] MEDS: heparin 5,000 unit/mL INJ 1 mL 5000 UNIT SUBCUT (02:34)
[2023-08-07] MEDS: famotidine 20 mg/2 mL INJ 40 MG IVP (02:35)
[2023-08-07 04:35] LABS: Basophils # 0.1 10^3/uL (0.0-0.1); Basophils % 1.3 %; Eosinophils # 0.5 10^3/uL (0.0-0.8); Eosinophils % 5.9 %; Hematocrit 30.4 % (37-53); Lymphocytes # 1.8 10^3/uL (0.8-4.8); Mean Corpuscular HGB Conc 32.6 g/dL (30-55); Mean Corpuscular Hemoglobin 29.8 pg (27-33); Mean Corpuscular Volume 91.6 fl (82-101); Mean Platelet Volume 9.6 fL (7.4-10.4); Monocytes % 12.6 %; Neutrophils # 4.52 10^3/uL (1.8-7.7); Neutrophils % 56.7 %; Nucleated Red Blood Cells % 0 %; Platelet Count 410 10^3/cmm (157-399); Red Blood Count 3.32 10^6/uL (3.85-5.65); Red Cell Distribution Width 14.5 % (12.1-15.1); White Blood Count 7.96 10^3/uL (3.29-11.43)
[2023-08-07 05:02] LABS: Alanine Aminotransferase 37 U/L (0-41); Albumin Level 3.1 g/dL (3.5-5.2); Alkaline Phosphatase 79 U/L (40-130); Anion Gap 12.8 (5-19); Aspartate Amino Transferase 40 U/L (0-40); Blood Urea Nitrogen 24 mg/dL (8-23); Calcium 8.7 mg/dL (8.5-10.5); Carbon Dioxide 25 mmol/L (22-29); Chloride 104 mmol/L (98-107); Creatinine Clr Calc Pharmacy 53.5327; Globulin 2.7 g/dL (1.3-4.6); Glucose 125 mg/dL (65-115); Osmolality Calculated 290 mOsm/kg (285-295); Potassium 4.8 mmol/L (3.5-5.1); Sodium 137 mmol/L (136-145); Total Bilirubin 0.6 mg/dL (0.15-1.2); Total Protein 5.8 g/dL (6.6-8.7)
[2023-08-07] MEDS: acetaminophen 500 mg Tablet PO ×2 (05:11→14:01)
[2023-08-07] MEDS: meropenem 500 MG in sodium chloride 0.9% (plus) 50 ML 100 MG IV (05:12)
[2023-08-07] MEDS: metoprolol succinate ER (24 HR) 25 mg Tablet PO (08:41)
[2023-08-07] MEDS: sucralfate 1 gm/10 mL Oral Liq UDC PO ×2 (08:41→11:58)
[2023-08-07] MEDS: amlodipine 5 mg Tablet 10 MG PO (08:41)
[2023-08-07] MEDS: nystatin 100,000 unit/mL UDC 5 mL 400000 UNIT PO ×2 (08:41→12:48)
[2023-08-07] MEDS: valACYclovir 1,000 mg Tablet 1000 MG PO (08:42)
[2023-08-07] MEDS: aspirin 81 mg EC Tablet PO (08:42)
[2023-08-07] MEDS: hyDRALAzine 50 mg Tablet PO ×2 (08:42→14:01)
--- NOTE | 2023-08-07 11:20 | PM.DCS ---
Discharge Providers Date of Admission: 07/27/23 00:21 Date of Discharge: August 07, 2023 Attending Provider at Admission: Maria L Lowry MD Attending Provider at Discharge: Favio Blanchard MD Consults: Cardiology: Dr. Hart Surgery: Dr. Acevedo Orthopedics: Dr. Sanon Primary Care Provider: Any Hill MD Diagnoses at Discharge Discharge Diagnosis (1) Elevated troponin: Status: Acute (2) Syncope and collapse: Status: Acute (3) HTN (hypertension): Status: Acute Qualifiers: Hypertension type: primary hypertension Qualified Code(s): I10 - Essential (primary) hypertension (4) Acute kidney insufficiency: Status: Acute (5) Elevated brain natriuretic peptide (BNP) level: Status: Acute (6) Bacterial infection due to E. coli: Status: Acute Reason for Visit Reason for Visit: fall Brief History: History as per HPI: Home Sweeney is a 88 year old male with history of BPH, PSA was on 9, had prostate biopsy done 07/25 at [place], presented today after syncopal event. As per the patient started experiencing loose stools after 5 PM yesterday, it made him very lethargic and dizzy, patient fell in his room and hit his head on the nightstand. He was very fatigued and lethargic. He did not complain of any shortness of breath or chest pain. He was given Reglan and Zofran in the ER, workup is showing creatinine 1.6, ER physician plan to discharge him home but family refused On my evaluation patient is fatigued and lethargic complaining of nausea vomiting I gave him Reglan, Requested D-dimer which came back extremely high at 18.5 He does have lower extremity edema As per the family patient is physically very active and sharp no history of dementia, suffered from COVID-19 earlier this year Takes lisinopril and amlodipine was recently discontinued No significant past medical history No previous history of coronary disease or CHF Hospital Course Hospital Course Patient had a prolonged complicated hospitalization course. He was admitted to the hospital further evaluation and management of syncope and collapse in setting of sepsis from UTI versus prostatitis, acute kidney injury secondary to dehydration. On admission he was also found to have elevated troponins with concern for non-ST elevation LA and elevated D-dimer with concerns for possible pulmonary embolism. Concerns for pulmonary embolism is low as patient remained on room air. He was started on broad-spectrum antibiotics, heparin drip IV fluids and management as per ACS protocol. Patient's blood culture during hospitalization from admission came back positive for E. coli. Urine culture was also positive for E. coli. Antibiotics were de-escalated as per culture sensitivities. Cardiology was consulted. Echocardiogram was done which showed a normal EF of 64% without regional wall motion abnormality, mild LVH and grade 1 elevated diastolic dysfunction. Hospitalization was complicated by hematuria for which heparin drip was discontinued after which hematuria resolved. Patient underwent VQ scan which ruled out pulmonary embolism. Patient's hospitalization was complicated by him developing hematochezia for which his dual antiplatelet therapy was discontinued and he was started on Protonix and Carafate after which hematochezia resolved and hemoglobin remained stable. Gradually baby aspirin has been started which patient has been tolerating well. MARY CARMEN resolved with IV fluids. During hospitalization patient remained chest pain-free and hemodynamically stable. Patient was doing well with resolution of leukocytosis and improvement in fever curve. Lexiscan stress test could not be done because of various complications during hospitalization. Patient developed left thigh and hip pain along with worsening of leukocytosis. Orthopedics was consulted who recommended patient to have left hip MRI on Saturday with concerns for complex fluid collection in left thigh muscle posteriorly. Family did state that patient had a boil at the posterior aspect of the left hip which had burst open. Given concerns for possibility of fluid collection surgery was consulted who recommended patient to have a left hip CT which ruled out fluid collection but there were concerns for possible deep cellulitis versus myositis. His antibiotic coverage was broadened after which his leukocytosis resolved. Patient has been able to ambulate by himself with a walker. Safe discharge plan was discussed in detail with the family and they will want to take patient home with home health. During hospitalization he also developed oral aphthous ulcers with concerns for fixed drug eruption versus herpes labialis for which he was started on oral valacyclovir and offending medications including possibility of Protonix and Lasix were discontinued. After which his symptoms are resolving. He is to continue to take valacyclovir for 4 more days to finish a course of antiviral therapy. Multiple antihypertensives were adjusted. He has been discharged to a new likely stable condition and advised to check his blood pressure daily at home and maintain a blood pressure diary and follow-up with his primary care provider within next 2 weeks for further adjustment of medications. Needs to take IV or ertapenem for next 5 days to the midline which is placed on 08/07 for completion of IV antibiotic course for E. coli bacteremia. He is also being discharged on oral linezolid to finish the course for antibiotics for left thigh cellulitis. Midline should be removed after completion of IV antibiotic course. After completion of IV antibiotics she should also have CBC and CMP drawn. Patient is advised to have Lexiscan stress test within next 1 week for further risk stratification for ACS. He is to follow-up with cardiology team on August 13. He is to continue taking baby aspirin going forward. He is also to take Carafate and famotidine for next 4 weeks. Discharge plan were discussed in detail with family members at bedside who verbalized understanding. All the questions were answered. Physical Exam Narrative: General: No acute distress, AO x3, chronically sick appearing HEENT: PERRLA, pupils bilaterally equal and reactive Chest: Bilateral bronchial breath sounds all over lung ji with diffuse rhonchi CVS: S1-S2 regular, no murmurs, no tachycardia, no gallops, no rubs Abdomen: Soft, nontender, no organomegaly, bowel sounds present Neuro: No focal deficits, no facial deformity, AO x3, power 5/5 in all limbs HENMT: OTHER: Chapped lips, eschar, no blisters or weeping. Less edema, more eschar. Small shallow ulcerations infero lateral to the L side mouth. Extremity: OTHER: Area of erythema, localized rise in temperature in the left medial thigh going up to the groin and posteriorly Urinary Catheter Management: Antoine: Cath Placed During This Visit: yes, but has since been removed by the nurse Reason for Continuing Indwelling Catheter: Decision to DC Catheter Date Urinary Catheter Removed: 08/06/23 Time Urinary Catheter Discontinued: 12:00 Discharge Data Studies Completed and Pending Completed Studies During Hospitalization Category Date Time Status CT abdomen pelvis w con* [id number] Routine Cat Scan 08/04/23 10:[address] abdomen pelvis wo con [id number] Routine Cat Scan 07/31/23 10:[address] [place] [id number] Routine Cat Scan 07/27/23 00:[address] femur LT w con [id number] Routine Cat Scan 08/04/23 10:[address] head thrombolytic [id number] Stat Cat Scan 07/26/23 19:[address] head wo con* [id number] Routine Cat Scan 08/04/23 14:40 Completed XR chest 1V portable [id number] Stat Exams 07/26/23 19:24 Completed Blood Cultures ([facility]) Routine Lab 08/01/23 13:42 Completed Blood Cultures ([facility]) Routine Lab 08/01/23 13:47 Completed MR hip LT wo/w con [id number] Stat MRI 08/01/23 10:13 Completed NM pul vent and perfus* [id number] Routine Nuc Med 08/02/23 11:14 [place] [id number] Routine Ultrasound 07/27/23 00:47 [place] [id number] Urgent Ultrasound 08/05/23 15:20 Completed CV. echo complete* [id number] Routine Ultrasound 07/27/23 00:47 Completed Pending at discharge Category Date Time Status Cardiac Stress Test MIBI [Sestamibi Stress Test Request Exams 07/28/23 17:46 Stop Req ] Routine Cardiac Stress Test MIBI [Sestamibi Stress Test Request Exams 07/31/23 23:27 Stop Req ] Routine Histoplasma Galactomannan Ag Routine Lab 08/04/23 20:30 Received Histoplasma Quantitative AG Routine Lab 08/04/23 20:30 Received Stool Culture - Enteric [Salmonella / Shigella / Campy] Lab 08/04/23 21:28 Received Routine Radiology Impressions Chest X-Ray 07/26/23 19:24 IMPRESSION: Mild cardiomegaly, decreased lung volumes, otherwise negative chest. Chest/Abdomen/Pelvis CT 07/27/23 00:47 IMPRESSION: IMPRESSION: Antoine catheter within decompressed urinary bladder. There is mild surrounding inflammatory change. Cystitis not excluded Femur CT 08/04/23 10:13 IMPRESSION: Edematous changes of medial muscle group and generalized fat planes of the left thigh most consistent with cellulitis in absence of traumatic history. No discrete fluid collection or mass. Clinical correlation recommended. Abdomen/Pelvis CT 08/04/23 10:46 IMPRESSION: 1. No acute abdominopelvic pathology. Interval resolution of mild perivesical fat infiltration seen on prior CT. Antoine catheter remains in place . 2. Stable basilar pulmonary nodules and right lower lung zone perifissural abnormality compared with recent chest CT. Given the largest lesion measuring up to 1.6 cm, three-month follow-up recommended according to Fleischner criteria. 3. Minor findings described above. Head CT 08/04/23 14:40 IMPRESSION: No acute pathology or significant interval change. Venous Duplex 08/05/23 15:20 IMPRESSION: 1. No evidence for deep venous thrombosis in the right or left lower extremities. 2. Mild subcutaneous edema in the right and left calves. MRI Hip- 08/01 IMPRESSION: 1. Markedly abnormal appearance to to the soft tissues and muscle surrounding the hips, greatest involving the LEFT hip and thigh. Extensive edema greatest involving the medial and anterior compartments. 2. Multiloculated fluid collection with noncontiguous enhancement centered in the abductor muscles of the LEFT thigh measures at least 8.6 x 3.4 cm. The extent is not completely included on this MRI of the hip. The soft tissue changes extend at least into the mid thigh. This is most consistent with a muscular abscess or necrosis. Differential includes rhabdomyolysis and pyomyositis with bacterial seeding. Echocardiogram: CONCLUSIONS Normal left ventricular size and systolic function, EF 64 %. No regional wall motion abnormalities. Mild left ventricular hypertrophy. Grade I/IV diastolic dysfunction (abnormal relaxation filling pattern), normal to mildly elevated filling pressures. Thickened aortic valve Normal cardiac chamber sizes There is no pericardial effusion. No similar previous studies are available for comparison Dr Gianni Hart MD [facility] (Electronically Signed) Final Date: 27 July 2023 Microbiology 08/01/23 13:47 Blood Blood Culture - Final 08/01/23 13:42 Blood Blood Culture - Final 07/28/23 05:00 Blood Blood Culture - Final NO GROWTH AFTER 5 DAYS 07/28/23 05:00 Blood Blood Culture - Final NO GROWTH AFTER 5 DAYS 07/27/23 04:21 Blood Blood Culture - Final Escherichia coli 07/27/23 07:15 Blood Blood Culture - Final NO GROWTH AFTER 5 DAYS 07/27/23 12:04 Urine Catheterized Urine Culture - Final Escherichia coli 07/27/23 12:04 Urine Kidney Bacterial Antigens - Final Laboratory Results WBC 7.96 10^3/uL (3.29-11.43) 08/07/23 04:10 RBC 3.32 10^6/uL (3.85-5.65) L 08/07/23 04:10 Hgb 9.90 g/dL (11.27-16.99) L 08/07/23 04:10 Hct 30.4 % (37-53) L 08/07/23 04:10 MCV 91.6 fl (82-101) 08/07/23 04:10 MCH 29.8 pg (27-33) 08/07/23 04:10 MCHC 32.6 g/dL (30-55) 08/07/23 04:10 RDW 14.5 % (12.1-15.1) 08/07/23 04:10 Plt Count 410 10^3/cmm (157-399) H 08/07/23 04:10 MPV 9.6 fL (7.4-10.4) 08/07/23 04:10 Neut % (Auto) 56.7 % 08/07/23 04:10 Lymph % (Auto) 23.0 % 08/07/23 04:10 Lyman % (Auto) 12.6 % 08/07/23 04:10 Eos % (Auto) 5.9 % 08/07/23 04:10 Baso % (Auto) 1.3 % 08/07/23 04:10 Neut # (Auto) 4.52 10^3/uL (1.8-7.7) 08/07/23 04:10 Lymph # (Auto) 1.8 10^3/uL (0.8-4.8) 08/07/23 04:10 Lyman # (Auto) 1.0 10^3/uL (0.2-0.9) H 08/07/23 04:10 Eos # (Auto) 0.5 10^3/uL (0.0-0.8) 08/07/23 04:10 Baso # (Auto) 0.1 10^3/uL (0.0-0.1) 08/07/23 04:10 Nucleated RBC % (auto) 0 % 08/07/23 04:10 Nucleated RBCs # 0.0 /100WBC 08/07/23 04:10 ESR 43 mm/hr (0-10) H 08/05/23 02:29 PT 15.30 SECONDS (12.1-14.9) H 07/26/23 20:42 INR 1.17 (0.8-1.2) 07/26/23 20:42 APTT 59.8 SECONDS (23.9-36.7) H 08/01/23 03:50 D-Dimer 18.51 ug/mLFEU (0-0.59) H 07/27/23 00:00 Specimen Type Arterial 07/27/23 02:48 Sample Site Radial, left 07/27/23 02:48 ABG pH 7.43 (7.35-7.45) 07/27/23 02:48 ABG pCO2 33.2 mmHg (35-45) L 07/27/23 02:48 ABG pO2 64.1 mmHg (80.0-100.0) L 07/27/23 02:48 ABG PO2/FiO2 Ratio 0 07/27/23 02:48 ABG HCO3 22.1 mmol/L (22-26) 07/27/23 02:48 ABG Base Excess -1.5 mmol/L (-2.0-2.0) 07/27/23 02:48 Ortiz Test Pos 07/27/23 02:48 Hematocrit 44.4 % (42-52) 07/27/23 02:48 O2 Delivery Device Nc 07/27/23 02:48 FiO2 21.0 % 07/27/23 02:48 Shark Biologist ID Rodriguez 07/27/23 02:48 Sodium 137 mmol/L (136-145) 08/07/23 04:10 Potassium 4.8 mmol/L (3.5-5.1) 08/07/23 04:10 Chloride 104 mmol/L (98-107) 08/07/23 04:10 Carbon Dioxide 25 mmol/L (22-29) 08/07/23 04:10 Anion Gap 12.8 (5-19) 08/07/23 04:10 BUN 24 mg/dL (8-23) H 08/07/23 04:10 Creatinine 1.3 mg/dL (0.7-1.2) H 08/07/23 04:10 GFR Calculation Not Reportable 08/07/23 04:10 Glucose 125 mg/dL (65-115) H 08/07/23 04:10 POC Glucose 119 mg/dL (70-110) H 08/02/23 00:31 Estimat Average Glucose 134 07/27/23 04:21 Hemoglobin A1c 6.3 % (4.0-6.0) H 07/27/23 04:21 Calculated Osmolality 290 mOsm/kg (285-295) 08/07/23 04:10 Lactic Acid 3.5 mmol/L (0.5-2.2) H 07/27/23 00:00 Lactic Acid (Sepsis) 3.8 mmol/L (0.5-2.2) H 07/27/23 04:21 Lactate 3.8 mmol/L (0.5-2.2) H 07/27/23 07:15 Calcium 8.7 mg/dL (8.5-10.5) 08/07/23 04:10 Phosphorus 2.3 mg/dL (2.5-4.5) L 07/30/23 03:57 Magnesium 2.1 mg/dL (1.7-2.3) 07/30/23 03:57 Iron 9 ug/dL (59-158) L 07/27/23 04:21 TIBC 217 mcg/dl 07/27/23 04:21 % Saturation 4.1 % (20-50) L 07/27/23 04:21 Unsat Iron Binding 208 ug/dL (112-347) 07/27/23 04:21 Total Bilirubin 0.6 mg/dL (0.15-1.2) 08/07/23 04:10 AST 40 U/L (0-40) 08/07/23 04:10 ALT 37 U/L (0-41) 08/07/23 04:10 Alkaline Phosphatase 79 U/L (40-130) 08/07/23 04:10 Creatine Kinase 359 U/L (39-308) H* 08/05/23 02:29 Troponin T Baseline 236 ng/L (0-15) H* 07/27/23 04:21 Troponin T 120 Minute 219.8 ng/L (0-15) H 07/27/23 07:15 Delta Troponin T -16.2 ABS# (0-10) L 07/27/23 07:15 Troponin T Hi Sens 6Hr 170.1 ng/L (0-15) H 07/27/23 10:36 Troponin T Hi Sens 6Hr Delta -65.9 ng/L (0-12) L 07/27/23 10:36 C-Reactive Protein 103.4 mg/L (0.0-4.9) H 07/27/23 04:21 NT-Pro-B Natriuret Pep 5638 pg/mL (0-450) H 07/27/23 04:21 Total Protein 5.8 g/dL (6.6-8.7) L 08/07/23 04:10 Albumin 3.1 g/dL (3.5-5.2) L 08/07/23 04:10 Globulin 2.7 g/dL (1.3-4.6) 08/07/23 04:10 Triglycerides 175 mg/dL (0-150) H 07/28/23 05:00 Cholesterol 96 mg/dL (0-200) 07/28/23 05:00 LDL Cholesterol, Calc 37 mg/dL (50-129) L 07/28/23 05:00 Total VLDL Cholesterol 35 mg/dL (0-30) H 07/28/23 05:00 HDL Cholesterol 24 mg/dL (60-100) L 07/28/23 05:00 Cholesterol/HDL Ratio 4.00 mg/dL (1.0-5.00) 07/28/23 05:00 Vitamin B12 287 pg/mL (232-1245) 07/27/23 04:21 Folate 4.6 ng/mL (4.5-32.2) 07/28/23 05:00 Procalcitonin 66.13 ng/mL (0-0.5) H 07/27/23 00:00 TSH 0.88 uIU/mL (0.27-4.20) 07/27/23 04:21 Urine Color Brown (Yellow) A 07/27/23 12:04 Urine Color Cancelled 07/27/23 12:04 Urine Appearance Cancelled 07/27/23 12:04 Urine Appearance Cloudy (CLEAR) A 07/27/23 12:04 Urine pH 5 (5-7) 07/27/23 12:04 Urine pH Cancelled 07/27/23 12:04 Ur Specific [place] 1.020 (1.005-1.030) 07/27/23 12:04 Ur Specific [place] Cancelled 07/27/23 12:04 Urine Protein 3+ (Negative) H 07/27/23 12:04 Urine Protein Cancelled 07/27/23 12:04 Urine Glucose (UA) Cancelled 07/27/23 12:04 Urine Glucose (UA) Norm (Normal) 07/27/23 12:04 Urine Ketones Cancelled 07/27/23 12:04 Urine Ketones Negative (Negative) 07/27/23 12:04 Urine Blood 3+ (Negative) H 07/27/23 12:04 Urine Blood Cancelled 07/27/23 12:04 Urine Nitrate Cancelled 07/27/23 12:04 Urine Nitrate Negative (Negative) 07/27/23 12:04 Urine Bilirubin 1+ (Negative) H 07/27/23 12:04 Urine Bilirubin Cancelled 07/27/23 12:04 Prot Sulfosalicylic Acd Cancelled 07/27/23 12:04 Urine Urobilinogen Cancelled 07/27/23 12:04 Urine Urobilinogen Norm mg/dL (Negative) 07/27/23 12:04 Ur Leukocyte Esterase 2+ (Negative) H 07/27/23 12:04 Ur Leukocyte Esterase Cancelled 07/27/23 12:04 Urine RBC >100 /hpf (0-2) H 07/27/23 12:04 Urine WBC 25-40 /hpf (0-5) H 07/27/23 12:04 Ur Squamous Epith Cells None /hpf (0-5) 07/27/23 12:04 Amorphous Sediment Not Reportable 07/27/23 12:04 Urine Bacteria 2+ /hpf (NONE) H 07/27/23 12:04 Coarse Granular Casts 25-40 /lpf H 07/27/23 12:04 Nasal Influ A H1 2008 PCR Not detected (NOT DETECT) 07/27/23 01:20 Vancomycin Trough 12.1 ug/mL (10-15) 08/06/23 16:12 Urine Opiates Screen Negative ng/mL (Negative) 07/27/23 12:04 Ur Barbiturates Screen Negative ng/mL (Negative) 07/27/23 12:04 Ur Phencyclidine Scrn Negative ng/mL (Negative) 07/27/23 12:04 Ur Amphetamines Screen Negative ng/mL (Negative) 07/27/23 12:04 U Benzodiazepines Scrn Negative ng/mL (Negative) 07/27/23 12:04 Urine Cocaine Screen Negative ng/mL (Negative) 07/27/23 12:04 U Marijuana (THC) Screen Negative ng/mL (Negative) 07/27/23 12:04 Adenovirus (PCR) Not detected (NOT DETECT) 07/27/23 01:20 C. pneumoniae DNA (PCR) Not detected (NOT DETECT) 07/27/23 01:20 C. difficile Tox (PCR) TNP 08/04/23 21:28 Coronavirus 229E (PCR) Not detected (NOT DETECT) 07/27/23 01:20 Human Metapneumovir PCR Not detected (NOT DETECT) 07/27/23 01:20 Influenza A (H1) PCR Not detected (NOT DETECT) 07/27/23 01:20 Influenza A (H3) PCR Not detected (NOT DETECT) 07/27/23 01:20 Influenza Type A (PCR) Not detected (NOT DETECT) 07/27/23 01:20 Influenza Type B (PCR) Not detected (NOT DETECT) 07/27/23 01:20 M. pneumoniae (PCR) Not detected (NOT DETECT) 07/27/23 01:20 Parainfluenza 1 (PCR) Not detected (NOT DETECT) 07/27/23 01:20 Parainfluenza 2 (PCR) Not detected (NOT DETECT) 07/27/23 01:20 Parainfluenza 3 (PCR) Not detected (NOT DETECT) 07/27/23 01:20 Parainfluenza 4 (PCR) Not detected (NOT DETECT) 07/27/23 01:20 RSV Type A (PCR) Not detected (NOT DETECT) 07/27/23 01:20 RSV Type B (PCR) Not detected (NOT DETECT) 07/27/23 01:20 Entero/Rhino (PCR) Not detected (NOT DETECT) 07/27/23 01:20 SARS-CoV-2 (PCR) Not detected (NOT DETECT) 07/27/23 01:20 MRSA (PCR) Not detected (NOT DETECTED) 07/27/23 14:10 Blood Type O Positive 08/02/23 01:45 Rho(D) Type Rh positive 08/02/23 01:45 Antibody Screen Negative 08/02/23 01:45 Crossmatch See Detail 08/02/23 01:45 Vitals Last Vital Signs Temp 98.0 F 08/07/23 08:10 Pulse 74 08/07/23 08:10 Resp 19 H 08/07/23 08:10 BP 147/62 08/07/23 08:10 Pulse Ox 97 08/07/23 08:10 O2 Del Method Room Air 08/07/23 08:10 Discharge Plan Discharge Patient Disposition: Home Condition: Stable Prescriptions: New ondansetron HCl 4 mg tablet 4 mg PO Q12H 5 Days Qty: 10 0RF atorvastatin 40 mg Tablet 40 mg PO BEDTIME Qty: 30 0RF valacyclovir 1 gram Tablet 1,000 mg PO BID@0900,2100 4 Days Qty: 8 0RF sucralfate 100 mg/mL Suspension 1 g PO AC&BEDTIME 28 Days Qty: 1000 0RF amlodipine 5 mg Tablet 10 mg PO DAILY Qty: 60 0RF hydralazine 50 mg Tablet 50 mg PO TID 30 Days Qty: 90 0RF famotidine 40 mg tablet 40 mg PO BID 56 Days Qty: 112 0RF linezolid 600 mg tablet 600 mg PO BID Qty: 10 0RF Continued budesonide-formoterol [Symbicort] 160-4.5 mcg/actuation HFA aerosol inhaler 2 puff INHALATION BID Wixela Inhub 250-50 mcg/dose Blister With Device 1 inh INHALATION BID metoprolol succinate 25 mg Tablet Extended Release 24 Hr 25 mg PO DAILY aspirin 81 mg Tablet,Chewable 81 mg PO DAILY Qty: 30 0RF Held furosemide 20 mg Tablet 20 mg PO DAILY Hold Instructions: Resume on 08/16/23. Discontinued losartan 50 mg Tablet 75 mg PO DAILY Discharge Orders: Discharge Order (Routine); Ordered 08/07/23 Ordered By: Favio Blanchard Other Ambulatory Orders: DME: [employer] (Order) Location: None Selected Ordered By: Any Hill DME: Walker (Order) Location: None Selected [facility]: [facility] Timeframe: 1 Week Facility: [facility] - Location: Cardiac Diagnostic Laboratory Ordered By: Favio Blanchard Referrals: Any Hill MD [Primary Care Provider] - 7-10 days Daniela Vizcarra FNP [Nurse Practitioner] - 08/13/23 10:15 am Discharge Diet: Advance as tolerated and Cardiac Discharge Activity: Resume usual activity Patient Instructions: Famotidine (By mouth) (Acid Controller, Acid Outpatient Surgery Rn, Pepcid AC, Pepcid), Sucralfate (By mouth) (Carafate), Amlodipine (By mouth), Valacyclovir (By mouth) (Valtrex), Ondansetron (By injection) (Zofran, BD Simplist Ondansetron,..., Atorvastatin (By mouth) (Lipitor, Atorvaliq), Cellulitis (GEN), Sepsis (DC), Hypertension (DC), Opioid Safety, Pain Management, Post Heart Attack Stoplight Activity Restrictions/Additional Instructions: Continue taking ertapenem till August 13. After finishing of antibiotics you should have a CBC and CMP labs drawn. Midline should be removed. Please make sure you drink up to 2 L of fluid daily. For now hold off on losartan. Instead of that he will be on hydralazine and amlodipine. Check your blood pressures daily at home and maintain a blood pressure diary and follow-up with the primary care provider within next 10 days to 2 weeks for further adjustment of antihypertensives. Linezolid is the antibiotic which is supposed to take for next 5 days. Valacyclovir is the oral antiviral therapy which she will take for next 4 days. You should have a stress test done within next 2 weeks for further restratification for non-ST elevation myocardial infarction. Follow-up with storage solutions architect onsite appointment on August 13. Discharge Attestations Time Spent in Discharge Care*: greater than 30 min Specific Discharge Activities: educating patient, educating and/or supporting family/caregiver, discussing with case planner/social workers/dc planners, documenting/other paperwork and evaluating patient/reviewing data Status at Discharge: Cognitive status at discharge: cognitively intact, Behavioral status at discharge: cooperative, Functional status at discharge: uses cane/walker, Overall status at discharge: patient is progressing back to baseline Quality Metrics Clinical Quality Measures [ No reported AMI, CVA or VTE this stay] Coding Level of Care Code 21837 Total time (in minutes) for Discharge: 70 Diagnoses Elevated troponin R79.89 Syncope and collapse R55 Primary hypertension I10 Hypertension type: primary hypertension Acute kidney insufficiency N28.9 Elevated brain natriuretic peptide (BNP) level R79.89 Bacterial infection due to E. coli A49.8
--- NOTE | 2023-08-07 11:57 | PC.NURSE ---
pt wants his new Rx called to [facility] pharmacy meds to bed. meds sent to [facility].
[2023-08-07] MEDS: ertapenem 1,000 MG in sodium chloride 0.9% (plus) 100 ML 200 MG IV (11:58)
[2023-08-07] MEDS: vancomycin 1,500 MG/300 ML PIGGYBACK 200 MG IV (12:47)
--- NOTE | 2023-08-07 15:23 | PC.NURSE ---
Discharge Note Patient discharged to [home] via [wheelchair to POV] accompanied by [family]. Discharge instructions reviewed with patient and/or risk control representative. Mobile pharmacy medications and/or prescriptions provided. Belongings/home medications returned.
[2023-08-08 18:14] LABS: Histoplasma Antigen (Quant) NONE DETECTED; Histoplasma Antigen Interpreta NEGATIVE; Histoplasma Antigen Specimen URINE
[2023-08-10 03:04] LABS: Histoplasma Galactomannan Ag <0.2 ng/mL
== END 2023-08-07 15:24 | disposition home or self-care (01) | DRG 871 ==
LOC: ER 07-27 00:01 → MEDSURG 07-27 07:41 → CSU 07-27 15:51
PROVIDERS: Internal Medicine; Admitting Provider Internal Medicine; Emergency Provider Internal Medicine; PCP Family Medicine; Visit Provider Student in an Organized Health Care Education/Training Program
DX: A41.9 Sepsis, unspecified organism (principal); I21.4 Non-ST elevation (NSTEMI) myocardial infarction; I50.31 Acute diastolic (congestive) heart failure; N39.0 Urinary tract infection, site not specified; I13.0 Hypertensive heart and chronic kidney disease with heart failure and stage 1 through stage 4 chronic kidney disease, or unspecified chronic kidney disease; N17.9 Acute kidney failure, unspecified; L03.116 Cellulitis of left lower limb; M62.82 Rhabdomyolysis; K92.1 Melena; B37.0 Candidal stomatitis; N41.9 Inflammatory disease of prostate, unspecified; W19.XXXA Unspecified fall, initial encounter; N18.9 Chronic kidney disease, unspecified; B96.20 Unspecified Escherichia coli [E. coli] as the cause of diseases classified elsewhere; N40.0 Benign prostatic hyperplasia without lower urinary tract symptoms; Z86.16 Personal history of COVID-19; E86.0 Dehydration; R31.9 Hematuria, unspecified; B00.1 Herpesviral vesicular dermatitis; Z79.82 Long term (current) use of aspirin; R19.7 Diarrhea, unspecified; D50.9 Iron deficiency anemia, unspecified; Z11.52 Encounter for screening for COVID-19; Z87.891 Personal history of nicotine dependence; J44.9 Chronic obstructive pulmonary disease, unspecified
CPT/HCPCS: 36415; 36416; 36430; 36569; 36573; 70450; 71045; 71250; 73701; 73723; 74176; 74177; 78014; 80048; 80053; 80061; 80202; 80306; 81001; 82550; 82607; 82746; 82803; 82962; 83036; 83540; 83550; 83605; 83735; 83880; 84100; 84145; 84443; 84484; 85014; 85018; 85025; 85378; 85610; 85651; 85730; 86140; 86403; 86850; 86900; 86920; 87040; 87045; 87077; 87086; 87150; 87186; 87205; 87385; 87427; 87449; 87486; 87493; 87581; 87633; 87635; 87641; 93005; 93306; 93970; 94640; 96361; 96372; 96374; 96376; 97110; 97116; 97162; 97164; 99285; A9270; A9540; A9567; A9577; C1751; C9113; J0696; J1335; J1644; J1940; J2185; J2270; J2405; J2543; J3370; J3411; J3475; J3490; J7030; J7050; J7120; J7626; P9040; Q9967

== ENCOUNTER → 2023-10-10 14:36 | Outpatient (BNVA) | payer OTHER, SELFPAY | PROVIDERS: PCP Family Medicine; Visit Provider Podiatrist Foot & Ankle Surgery | DX: M79.672 Pain in left foot (principal); L60.8 Other nail disorders | CPT/HCPCS: 73630; 99203 ==

== ENCOUNTER → 2024-01-08 15:03 | Outpatient (BNVA) | payer OTHER, SELFPAY | PROVIDERS: PCP Family Medicine; Visit Provider Podiatrist Foot & Ankle Surgery | DX: L60.8 Other nail disorders (principal) | CPT/HCPCS: 99213 ==

== ENCOUNTER → 2024-07-07 13:40 | Outpatient (BNVA) | payer OTHER, SELFPAY | PROVIDERS: PCP Family Medicine; Visit Provider Podiatrist Foot & Ankle Surgery | DX: L60.8 Other nail disorders (principal) | CPT/HCPCS: 99213 ==

== ENCOUNTER → 2025-01-06 12:38 | Outpatient (BNVA) | payer OTHER, SELFPAY | PROVIDERS: PCP Family Medicine; Visit Provider Podiatrist Foot & Ankle Surgery | DX: L60.8 Other nail disorders (principal) | CPT/HCPCS: 99213 ==